=== PATIENT | female | born 1995 | race Caucasian/White ===

== ENCOUNTER → 2020-12-26 15:33 | Outpatient (CLI) | payer BC, SELFPAY ==
[2020-12-19 15:15] VITALS: BMI 26.9
--- NOTE | 2020-12-26 15:39 | US_ITS ---
STUDY: ULTRASOUND OF THE FEMALE PELVIS - COMPLETE REASON FOR EXAM: Female, 25 years old. pain-pelvic hx of endometriosis LMP: TECHNIQUE: Transabdominal and transvaginal TECHNICAL QUALITY: Adequate. COMPARISON: None. FINDINGS: The uterus is anteverted and is in a midline position. The uterus measures 8 x 4.8 x 2.5 cm. Normal uterine cervix. The endometrium measures 4 mm in thickness, and is hyperechoic. There is no demonstrated endometrial mass. There is no demonstrated myometrial mass. I.U.D. - The patient does not have an I.U.D. The right ovary is visualized. The right ovary measures 3.3 x 2.4 x 1.6 cm. There is no right ovarian cyst or ovarian mass. There is no visualized right adnexal mass or complex lesion. There is normal arterial and normal venous vascularity. The left ovary is visualized. The left ovary measures 3.6 x 2.2 x 2 cm. There is no left ovarian cyst or ovarian mass. There is no visualized left adnexal mass or complex lesion. There is normal arterial and normal venous vascularity. There is no fluid in the cul-de-sac. The pre void volume of the bladder was 406 ml. US/Pelvic (Non ) IMPRESSION: Normal female pelvis. Electronically Signed: Brdoerick Lowry MD at 16:54 EDT , Service support ,
--- NOTE | 2020-12-26 15:39 | US_ITS ---
STUDY: ULTRASOUND OF THE FEMALE PELVIS - COMPLETE REASON FOR EXAM: Female, 25 years old. pain-pelvic hx of endometriosis LMP: TECHNIQUE: Transabdominal and transvaginal TECHNICAL QUALITY: Adequate. COMPARISON: None. FINDINGS: The uterus is anteverted and is in a midline position. The uterus measures 8 x 4.8 x 2.5 cm. Normal uterine cervix. The endometrium measures 4 mm in thickness, and is hyperechoic. There is no demonstrated endometrial mass. There is no demonstrated myometrial mass. I.U.D. - The patient does not have an I.U.D. The right ovary is visualized. The right ovary measures 3.3 x 2.4 x 1.6 cm. There is no right ovarian cyst or ovarian mass. There is no visualized right adnexal mass or complex lesion. There is normal arterial and normal venous vascularity. The left ovary is visualized. The left ovary measures 3.6 x 2.2 x 2 cm. There is no left ovarian cyst or ovarian mass. There is no visualized left adnexal mass or complex lesion. There is normal arterial and normal venous vascularity. There is no fluid in the cul-de-sac. The pre void volume of the bladder was 406 ml. US/Transvaginal Non- IMPRESSION: Normal female pelvis. Electronically Signed: Broderick Lowry MD at 16:54 EDT , Service support ,
[2020-12-26 18:01] LABS: Prolactin 10.5 ng/mL
[2020-12-31 12:39] LABS: Testosterone Free 0.5 pg/mL (0.0-4.2)
== END ==
PROVIDERS: Referring Provider Nurse Practitioner Women's Health; Visit Provider Nurse Practitioner Women's Health
DX: N80.9 Endometriosis, unspecified (principal); N92.6 Irregular menstruation, unspecified; N94.6 Dysmenorrhea, unspecified; N97.0 Female infertility associated with anovulation
CPT/HCPCS: 36415; 76830; 76856; 82627; 84146; 84402; 82626

== ENCOUNTER → 2021-01-12 09:37 | Outpatient (CLI) | payer BC, SELFPAY ==
[2020-12-19 15:15] VITALS: BMI 26.9
[2021-01-14 11:03] LABS: Progesterone Level 6.37 ng/mL (See Comment)
== END ==
PROVIDERS: Referring Provider Nurse Practitioner Women's Health; Visit Provider Nurse Practitioner Women's Health
DX: N80.9 Endometriosis, unspecified (principal)
CPT/HCPCS: 36415; 84144

== ENCOUNTER → 2022-03-26 | Outpatient (CLI) | payer BC, SELFPAY ==
--- NOTE | 2022-03-26 11:55 | RAD_ITS ---
INDICATION: infertility EXAMINATION/TECHNIQUE: Fluoroscopic hysterosalpingogram. Total Fluoroscopic Time: 14 seconds AND number of Fluoroscopic Images: 2 COMPARISON: None. FINDINGS: Approximately 50 cc of [id number] was administered by the content specialist. Normal contrast opacification of the endometrial cavity with immediate opacification of the bilateral fallopian tubes. There is normal peritoneal extravasation. The opacified structures appear unremarkable. RAD/Salpingogram IMPRESSION: Normal hysterosalpingogram. Electronically Signed: Christopher Medina, at 15:01 EDT ,
--- NOTE | 2022-03-26 12:51 | OP.PCM_ITS ---
Problems Associated Problem List Diagnoses (1) Endometriosis determined by laparoscopy: (2) Hypothyroidism: (3) Infertility: Operative Report Date of Procedure: 03/26/22 Preop diagnosis: Infertility Postop diagnosis:Infertility , bilateral tubal patency Procedure: Hysterosalpingogram Surgeon:Rae Manjarrez DO Implantable devices: None Complications: None Findings: Bilateral tubal patency and normal uterine cavity Operative details: Patient was taken to the x-ray room and was placed on the x- ray table and was in the dorsal lithotomy position. Speculum was placed in the vagina and the cervix prepped with Betadine and the HSG catheter was easily introduced into the uterus and speculum removed. Radiologist was brought in and while pushing radiopaque dye into the uterus via the HSG catheter the radiologist took multiple images and views and confirmed bilateral tubal patency seen. No gross uterine filling defects or abnormalities were seen. All instruments removed from the vagina and the uterus without complication. Patient tolerated the procedure well. Multi Select Codes Urinary/Genital Urinary/Genital CPT Codes: 18143 HSG/SIS
== END | disposition home or self-care (01) ==
LOC: RAD 11:45
PROVIDERS: Referring Provider Obstetrics & Gynecology; Visit Provider Obstetrics & Gynecology
DX: N97.0 Female infertility associated with anovulation (principal); E03.9 Hypothyroidism, unspecified
CPT/HCPCS: 58340; 74740; Q9967

== ENCOUNTER → 2023-09-08 | Outpatient (CLI) | payer OTHER, SELFPAY ==
[2023-09-12 16:05] LABS: HPV Reflexed? NOT INDICATED
== END | disposition home or self-care (01) ==
LOC: LABSPEC 16:49
PROVIDERS: Referring Provider Nurse Practitioner Women's Health; Visit Provider Nurse Practitioner Women's Health
DX: Z12.4 Encounter for screening for malignant neoplasm of cervix (principal)
CPT/HCPCS: 88175; G0145

== ENCOUNTER 2023-09-28 09:15 | Emergency (ER) | payer OTHER, SELFPAY ==
[2023-09-28 09:17] VITALS: BP 119/90; PULSE 83; RESP 16; TEMP 36.2; O2SAT 100; BMI 26.2
--- NOTE | 2023-09-28 09:37 | EDS_ITS ---
HPI History of Present Illness Chief Complaint: Laceration Detail of Chief Complaint: Laceration radial side left index finger Informant: patient Occured/Mechanism Comment: Laceration while cutting potatoes for [place] dinner Onset/Context/Timing Context: Sudden Onset Timing: Continuous Quality of Pain: Throbbing Location: Radial side left index finger from PIP joint to DIP joint. Current Severity: Mild Maximum Severity: Moderate Worsened by: Nothing Relieved by: Nothing Associated Symptoms Associated Symptoms: Negative for Parasthesia, Weakness or Loss of Funtion Narrative Narrative: Patient is a 28-year-old [id number] female presents laceration left index finger. Last tetanus unknown. She denies paresthesia, anesthesia or motor weakness. She denies prior injury to the finger. She has no other complaints. Tetanus Immunization: Unknown [facility] Medical History Anemia Asthma Endometriosis Home Medications cholecalciferol (vitamin D3) 50 mcg (2,000 unit) capsule 50 mcg PO DAILY 12/19/20 [History Last Taken Unknown] dextroamphetamine-amphetamine 30 mg tablet (Adderall) 30 mg PO DAILY 12/19/20 [History Last Taken Unknown] iron 18 mg tablet 18 mg PO DAILY 12/19/20 [History Last Taken Unknown] levothyroxine 25 mcg tablet (Synthroid) 25 mcg PO DAILY 12/19/20 [History Last Taken Unknown] doxycycline hyclate 100 mg capsule 100 mg PO DAILY #1 cap 03/26/22 [Rx Last Taken Unknown] Allergy/AdvReac Type Severity Reaction Status Date / Time amoxicillin Allergy Intermediate Hives Verified 09/28/23 09:16 cefaclor [From Ceclor] Allergy Intermediate Hives Verified 09/28/23 09:16 sulfamethoxazole Allergy Intermediate Hives Verified 09/28/23 09:16 [From Bactrim] trimethoprim [From Bactrim] Allergy Intermediate Hives Verified 09/28/23 09:16 Family History Mother Hypertension Allergies Surgical History History of tonsillectomy removal of endometriosis Social History household members: spouse current occupational status: employed current occupation: [employer] history of recent travel: No sexually active: Yes Smoking Status: Never smoker alcohol intake: current alcohol intake frequency: a few times a week substance use type: does not use diet: other what type of physical activity do you participate in: aerobics frequency: 1-2 times per week do you feel safe at home: Yes additional social history: - Erwin PEREZ ROS ED Constitutional Constitutional ED: Denies chills or fever(s) Neurologic Neurologic: Denies paresthesias Psychiatric Psychiatric: Reports anxiety Hematologic/Lymphatic Hematologic/Lymphatic: Denies easy bleeding or easy bruising EXAM Physical Exam Const Vital Signs: 09/28/23 09:17 Temperature 97.1 F L Temperature Source Temporal Pulse Rate 83 Respiratory Rate 16 Blood Pressure 119/90 H Blood Pressure Mean 99 Pulse Ox 100 Oxygen Delivery Method Room Air Positive well nourished and well developed General Appearance ED: well developed and NAD HEENT Reports moist mucous membranes normocephalic and atraumatic Eyes PERRL and EOMs intact bilaterally Resp normal respiratory effort Cardio regular rate and regular rhythm Extremity Extremity Narrative: There is a skin avulsion that is 3 cm x 0.3 cm in length radial side left index finger. The extensor inside tendon is functionally intact. The flexor digitorum superficialis and flexor digitorum profundus are intact. Capillary fill is normal. 2 point semination is normal. Neuro oriented x3, CN's II-XII intact bilaterally, no focal motor deficits and no sensory deficits noted Sensorium / Orientation: alert Psych Mood & Affect: anxious and tearful Skin Skin Narrative: Skin avulsion left index finger per previously description under the extremity portion of the medical record. MDM MDM MDM Narrative Medical decision making narrative: These given flap was ruled out to cover the defect. Wound was cleansed. Steri- Strips were applied per staff. Tetanus was updated. There is no indication for imaging. Discharge Plan Triage Chief Complaint: Laceration ED Provider: Jaren England Dx/Rx/DC Orders Clinical Impression: Avulsion of skin of finger Instructions: ED Skin Tear (Skin Avulsion) Prescriptions: No Action levothyroxine [Synthroid] 25 mcg tablet 25 mcg PO DAILY dextroamphetamine-amphetamine [Adderall] 30 mg tablet 30 mg PO DAILY iron 18 mg tablet 18 mg tablet 18 mg PO DAILY cholecalciferol (vitamin D3) 50 mcg (2,000 unit) capsule 50 mcg PO DAILY doxycycline hyclate 100 mg capsule 100 mg PO DAILY Qty: 1 0RF Primary Care Provider: NOT,DEFINED Referrals: NOT,DEFINED [Primary Care Provider] - Doctor,Your [Non-Staff] - As Needed Activity Restrictions/Additional Instructions: 1. Keep dressing on for the next 24 to 48 hours 2. Keep finger clean and dry for the next 48 hours Disposition Disposition: Home, Self Care
[2023-09-28] MEDS: Diphth,Pertuss(Acell),Tet Vac 0.5 ML Vial IM (10:12)
== END 2023-09-28 10:35 | disposition home or self-care (01) ==
PROVIDERS: Emergency Provider Emergency Medicine; Visit Provider Emergency Medicine
DX: S61.211A Laceration without foreign body of left index finger without damage to nail, initial encounter (principal); J45.909 Unspecified asthma, uncomplicated; F41.9 Anxiety disorder, unspecified; W26.8XXA Contact with other sharp object(s), not elsewhere classified, initial encounter; Y93.G3 Activity, cooking and baking; Z23 Encounter for immunization
CPT/HCPCS: 90471; 90715; 99282

== ENCOUNTER → 2023-10-10 | Outpatient (CLI) | payer OTHER, SELFPAY ==
--- OUTSIDE RECORDS SUMMARY | 2023-10-10 10:02 | XMS RPT_ITS | CCD ---
Author Name Unknown Address [address] [place] [address] [place], [place] [id number] Organization [facility] Care Team Providers Care Craps Manager Name Role Phone YAW GARZA (REZA) Unavailable YAW Avalos (SYSTEM DISPATCHER) Unavailable UnavailYAW Solares (REZA) Unavailable UnavailYAW Solares (REZA) Unavailable UnavailYAW Solares (REZA) Unavailable Unavailabl rayna PROVIDER, UNKNOWN Attending Unavailable PROVIDER, UNKNOWN Referring Unavailable Yaw Garza Primary Care Unavailable Yaw Garza CNP Primary Care Provider Allergies Allergy Classification Reported Allergen(s) Allergy Type Date of Onset Reaction(s) Facility Cephalosporins (antibiotic) (1 source) Cefaclor Drug Allergy 8 Unknown [facility] Penicillins (antibiotic) (1 source) Amoxicillin Drug Allergy 8 Unknown [facility] Sulfamethoxazole / Trimethoprim (1 source) Sulfamethoxazole / Trimethoprim Drug Allergy 8 Unknown [facility] (1 source) amoxicillin; Translations: [AMOXICILLIN] Drug Allergy [facility] Rep[facility] (1 source) cefaclor; Translations: [CEFACLOR] Drug Allergy [facility] (1 source) sulfamethoxazole / trimethoprim; Translations: [SULFAMETHOXAZOLE-TR IMETHOPRIM] Drug Allergy [facility] Medications Completed/Discontinued Medications Medication Drug Class(es) Dates Sig (Normalized) Sig (Original) [id number] 200 actuat albuterol 0.09 mg/actuat metered dose inhaler (1 source) beta2-Adrenergic Agonist Start: 01-10-2019 take 2 puff(s) by inhalation every six hours as needed albuterol HFA (PROAIR HFA) 90 mcg/actuation inhaler Indications: Mild intermittent asthma, unspecified whether complicated Inhale 2 Puffs as instructed every 6 hours as needed. 1 Inhaler 0 01/10/2019 Active Problems Problem Classification Problem Date Documented Date Episodic/Chronic Allergic reactions (6 sources) Allergy status to penicillin; Translations: [Allergy status to other anti-infective agents status] Onset: 11-14-2018 Episodic Anxiety disorders (1 source) Generalized anxiety disorder; Translations: [Generalized anxiety disorder] Onset: 07-02-2018 07-02-2018 Chronic Asthma (3 sources) Unspecified asthma, uncomplicated; Translations: [Asthma] Onset: 11-14-2018 01-10-2019 Chronic Attention-deficit conduct and disruptive behavior disorders (2 sources) Attention-deficit hyperactivity disorder, unspecified type; Translations: [Attention-deficit hyperactivity disorder, unspecified type] Onset: 11-14-2018 Chronic Genitourinary symptoms and ill-defined conditions (3 sources) Dysuria; Translations: [Dysuria] Onset: 07-02-2018 Episodic Other female genital disorders (2 sources) Personal history of other diseases of the female genital tract; Translations: [Personal history of oth diseases of the female genital tract] Onset: 11-14-2018 Episodic Unclassified (1 source) Unknown / UNK(Unknown) Onset: 07-02-2018 Urinary tract infections (2 sources) Urinary tract infection, site not specified; Translations: [Urinary tract infection, site not specified] Onset: 11-14-2018 Episodic Results Test Name Value Interpretation Reference Range Facil ity Encounters Encounter Date Encounter Type Care Provider Facility Start: 04-11-2021 End: 04-11-2021 ambulatory Chai Mercado Primary Care Procedures Date Procedure Procedure Detail Performing Clinician Start: 07-02-2018 Adult depression scr eening assessment Chai Martin Plan of Treatment Date Care Activity Detail Author Start: 2021 Influenza vaccination INFLUENZA (#1) [facility] Start: 07-02-2019 Adult depression scr eening assessment DEPRESSION SCREENING [facility] Start: 07-02-2019 ANNUAL PCP TEAM MECHANICAL APPLICATIONS ENGINEER HEATHER DISEASE VISIT ANNUAL PCP TEAM CHRONIC DISEASE VISIT [facility] Start: 2015 PAP TESTING PAP TESTING [facility] Start: 2013 Urine microalbumin profile DTAP,TDAP ,TD (1 - Tdap) [facility] Start: 2012 HEPATITIS C SCREENING HEPATITIS C SC REETOM [facility] Start: 2012 HIV SCREENING HIV SCREENING [facility] Start: 2012 SPIROMETRY SPIROMETRY [facility] Start: 2006 COVID-19 VACCINE (1) COVID-19 VACCIN E (1) [facility] Start: 2005 HPV VACCINE (1 - 2-d ose series) HPV VACCINE (1 - 2-dose series) [facility] Payers Date Payer Category Payer Unknown [id number] Unknown [id number] Unknown Social History Date Type Detail Facility Start: 07-02-2018 Tobacco smoking stat us NHIS Never smoker [facility] Start: 07-02-2018 Tobacco use and exposure Never used [facility] Start: 07-02-2018 Alcohol intake Current drinke r of alcohol (finding) [facility] Start: 07-02-2018 Alcohol Comment weekly [facility] Start: 1995 Sex Assigned At Not on file [facility] Progress note 05-14-2021 Note Date & Type Note Facility 05-14-2021 Note HNO ID: [id number] Author: Chai Martin Service: ? Author Type: ? Type: Progress Notes Filed: 05/14/2021 9:25 AM Note Text: POPULATION HEALTH NAVIGATION OUTREACH OFF-BOARDING Provider Action/FYI Pt identified by name and . Attempt 3. Patient has not responded to Offboarding outreach attempts. PCP updated to No PCP due to no [facility] PCP activity and provider left system over a year ago. Outreach Outcome: Unable to reach patient: Left message Off-Boarding Actions: Appointment scheduled: Reminders sent: Leatha Martin Population Health Navigator [facility] Progress note 04-11-2021 Note Date & Type Note Facility 04-11-2021 Note HNO ID: [id number] Author: Chai Martin Service: ? Author Type: ? Type: Progress Notes Filed: 04/11/2021 3:06 PM Note Text: POPULATION HEALTH NAVIGATION OUTREACH OFF-BOARDING Provider Action/FYI Pt identified by name and . Patient last seen by PCP 07-02-18. I called and lm for patient to call back about updating PCP. Mychart message also sent. Outreach Outcome: Unable to reach patient: Left message MyChart message sent Off-Boarding Actions: Appointment scheduled: Reminders sent: Leatha Martin Population Health Navigator [facility] History of Present illness Narrative 04-11-2021 Chai Martin - 04/11/2021 3:00 PM EDT Note Date & Type Note Facility 04-11-2021 History of Presen t illness Narrative POPULATION HEALTH NAVIGATION OUTREACH OFF-BOARDING Provider Action/FYI Pt identified by name and . Patient last seen by PCP 07-02-18. I called and lm for patient to call back about updating PCP. Mychart message also sent. Outreach Outcome: Unable to reach patient: Left message MyChart message sent Off-Boarding Actions: Appointment scheduled: Reminders sent: Leatha Martin Population Health Navigator documented in this encounter [facility] Clinical Note 04-11-2021 Note Date & Type Note Facility 04-11-2021 Note Patient Outreach ([facility]) -- SHERLY CASTRO ([id number]) 1995 F Date Time Provider Department 04/11/21 CHAI MARTIN AGGRISHABH During your visit today, we recorded the following information about you: Chai Martin 04/11/2021 3:06 PM Signed POPULATION HEALTH NAVIGATION OUTREACH OFF-BOARDING Provider Action/FYI Pt identified by name and . Patient last seen by PCP 07-02-18. I called and lm for patient to call back about updating PCP. Mychart message also sent. Outreach Outcome: Unable to reach patient: Left message MyChart message sent Off-Boarding Actions: Appointment scheduled: Reminders sent: Leatha Martin Population Health Navigator Chai Solis 05/14/2021 9:25 AM Signed POPULATION HEALTH NAVIGATION OUTREACH OFF-BOARDING Provider Action/FYI Pt identified by name and . Attempt 3. Patient has not responded to Offboarding outreach attempts. PCP updated to No PCP due to no [facility] PCP activity and provider left system over a year ago. Outreach Outcome: Unable to reach patient: Left message Off-Boarding Actions: Appointment scheduled: Reminders sent: Leatha Martin Population Health Navigator Allergies As of Date: 04/11/2021 Noted Allergy Reaction AMOXICILLIN 07/02/2018 16 - Unknown BACTRIM (SULFAMETHOXAZOLE-TRIMETH*07/02/2018 16 - Unknown CECLOR (CEFACLOR) 07/02/2018 16 - Unknown Date Reviewed: 07/02/2018 Reviewed by: Gina Campos - Fully Assessed Reason for Visit: Population Health Navigation Outreach [3910] Cmt: OFFBOARDING- Needs PCP Updated Prescriptions as of 05/14/2021 - albuterol HFA (PROAIR HFA) 90 mcg/actuation inhaler Inhale 2 Puffs as instructed every 6 hours as needed. - phenazopyridine HCl (AZO STANDARD MAXIMUM STRENGTH ORAL) Take by mouth. - FLUoxetine HCl 20 mg tablet Take 1 tablet by mouth once daily. - doxycycline monohydrate 100 mg tablet Take 1 tablet by mouth twice daily. - fluconazole (DIFLUCAN) 150 mg tablet Take 1 tablet by mouth once daily. Problem List As Of Date 04/11/2021 Noted Resolved YOCASTA (generalized anxiety disorder) [F41.1] 07/02/2018 Asthma [J45.909] Encounter Status:Closed by CHAI MARTIN on 04/11/21 [facility] Summary Purpose Family History No Family History Records FoundNo Family History Records FoundNo Family History Records FoundNo Family History Records FoundNo Family History Records Found Advance Directives No Advanced Directives Records FoundNo Advanced Directives Records FoundNo Advanced Directives Records FoundNo Advanced Directives Records FoundNo Advanced Directives Records Found Additional Source Comments INFORMATION SOURCE (unrecogn ized section and content) DATE CREATED AUTHOR AUTHOR'S ORGANIZ ATION 11/24/2018 [facility] DATE CREATED AUTHOR AUTHOR'S ORGANIZ ATION 04/26/2020 [facility] ([place]) DATE CREATED AUTHOR AUTHOR'S ORGANIZ ATION 05/15/2021 [facility] Source Comments (unrecognize d section and content) In the event this informatio n is protected by the Federal Confidentiality of Alcohol and Drug Abuse Patient Records regulations: The Federal rules restrict any use of the information to criminally investigate or prosecute any alcohol or drug abuse patient.[facility] Reason for Visit (unrecogniz ed section and content) FOR RECORDS PERTAINING TO PATIENTS WHO ARE OR HAVE BEEN ENROLLED IN A CHEMICAL DEPENDENCY/SUBSTANCEABUSE PROGRAM, SOME INFORMATION MAY BE OMITTED. This clinical summary was aggregated from multiple sources. Caution should be exercised in using it in the provision of clinical care. This summary normalizes information from multiple sources, and as a consequence, information in this document may materially change the coding, format and clinical context of patient data. In addition, data may be omitted in some cases. CLINICAL DECISIONS SHOULD BE BASED ON THE PRIMARY CLINICAL RECORDS. [facility]. provides no warranty or guarantee of the accuracy or completeness of information in this document.
[2023-10-12 09:37] LABS: Progesterone Level 11.09 ng/mL (See Comment)
== END | disposition home or self-care (01) ==
LOC: LAB 10:01
PROVIDERS: Referring Provider Nurse Practitioner Women's Health; Visit Provider Nurse Practitioner Women's Health
DX: N97.9 Female infertility, unspecified (principal)
CPT/HCPCS: 36415; 84144

== ENCOUNTER → 2024-01-02 | Outpatient (CLI) | payer OTHER, SELFPAY ==
[2024-01-04 09:44] LABS: Progesterone Level 51.57 ng/mL (See Comment)
== END | disposition home or self-care (01) ==
LOC: LAB 10:46
PROVIDERS: Referring Provider Nurse Practitioner Women's Health; Visit Provider Nurse Practitioner Women's Health
DX: N97.0 Female infertility associated with anovulation (principal)
CPT/HCPCS: 36415; 84144

== ENCOUNTER → 2024-01-28 | Outpatient (CLI) | payer OTHER, SELFPAY ==
[2024-01-28 16:58] LABS: Progesterone Level 22.37 ng/mL (See Comment)
== END | disposition home or self-care (01) ==
LOC: LAB 14:53
PROVIDERS: Referring Provider Registered Nurse; Visit Provider Registered Nurse
DX: N97.0 Female infertility associated with anovulation (principal); E03.9 Hypothyroidism, unspecified
CPT/HCPCS: 36415; 84144

== ENCOUNTER → 2025-03-31 | Outpatient (CLI) | payer OTHER, SELFPAY ==
--- OUTSIDE RECORDS SUMMARY | 2025-03-31 19:10 | XMS RPT_ITS | CCD ---
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 sensory deficits noted Sensorium / Orientation: alert Psych Mood & Affect: anxious and tearful Skin Skin Narrative: Skin avulsion left index finger per previously description under the extremity portion of the medical record. MDM MDM MDM Narrative Medical decision making narrative: These given flap was ruled out to cover the defect. Wound was cleansed. Steri- Strips were applied per staff. Tetanus was updated. There is no indication forimaging. Discharge Plan Triage Chief Complaint: Laceration ED Provider: Jaren England Dx/Rx/DC Orders Clinical Impression: Avulsion of skin of finger Instructions: ED Skin Tear (Skin Avulsion) Prescriptions: No Action levothyroxine [Synthroid] 25 mcg tablet 25 mcg PO DAILY dextroamphetamine-amphetamine [Adderall] 30 mg tablet 30 mg PO DAILY iron 18 mg tablet 18 mg tablet 18 mg PO DAILY cholecalciferol (vitamin D3) 50 mcg (2,000 unit) capsule 50 mcg PO DAILY doxycycline hyclate 100 mg capsule 100 mg PO DAILY Qty: 1 0RF Primary Care Provider: NOT,DEFINED Referrals: NOT,DEFINED [Primary Care Provider] - Doctor,Your [Non-Staff] - As Needed Activity Restrictions/Additional Instructions: 1. Keep dressing on for the next 24 to 48 hours 2. Keep finger clean and dry for the next 48 hours Disposition Disposition: Home, Self Care What to do if you have Problems For any increased pain, shortness of breath, bleeding, nausea or vomiting, chestpain, or any unexpected problems, contact your Primary Care Provider. Call [facility] ([phone]) or report to the closest Emergency Room. Call 911 if necessary. 09/28/23 0942 <Electronically signed by Jaren England MD> Cosigner Signature (if applicable): CC: DEFINED NOT ~ Signed [facility] Work Phone: Evaluation note* Diagnosis Onset Date Resolution Status Endometriosis determined by laparoscopy acute Hypothyroidism acute Infertility acute [facility] Work Phone: Evaluation note* Diagnosis Onset Date Resolution Status Endometriosis determined by laparoscopy acute Infertility [facility] Work Phone: Evaluation noteNo assessment information available [facility] Work Phone: Hospital course Narrative No data available for this section [facility] Hospital Discharge instructions Additional Instructions 1. Keep dressing on for the next 24 to 48 hours 2. Keep finger clean and dry for [facility] next [facility] Work Phone: Hospital Discharge instructions No data available for this section [facility] Progress note No data available for this section [facility] Summary Purpose Family History No Family History Records Found Relationship Condition Age at Onset Recorded Date/T shanelle mother Hypertension Unknown Allergy Unknown Advance Directives No Advanced Directives Records Found Advance Directive Response Recorded Date/ Time Living Will No September 28 023 9:18am Power of Party Chief No September 28, 2023 9:18am Advance Directive Response Recorded Date/ Time Living Will No September 28 023 10:18am Power of Party Chief No September 28, 2023 10:18am Chief Complaint and Reason for Visit Chief Complaint INFERTILITY INFERTILITY Reason for Visit Endometriosis determ ined by laparoscopy Hypothyroidism Infertility Chief Complaint conception/fertility questions PAP Reason for Visit Endometriosis determ ined by laparoscopy Infertility Chief Complaint conception/fertility questions PAP lac Reason for Visit Endometriosis determ ined by laparoscopy Infertility Chief Complaint lac EORDER Chief Complaint EORDER Additional Source Comments INFORMATION SOURCE (unrecogn ized section and content) DATE CREATED AUTHOR 08/03/2018 [employer] [facility] DATE CREATED AUTHOR AUTHOR'S ORGANIZ ATION 11/24/2018 [employer] DATE CREATED AUTHOR AUTHOR'S ORGANIZ ATION 05/15/2021 [facility] DATE CREATED AUTHOR AUTHOR'S ORGANIZ ATION 02/04/2024 [facility] DATE CREATED AUTHOR AUTHOR'S ORGANIZ ATION 05/27/2024 [facility] DATE CREATED AUTHOR AUTHOR'S ORGANIZ ATION 10/18/2024 [facility] Source Comments (unrecognize d section and content) In the event this informatio n is protected by the Federal Confidentiality of Alcohol and Drug Abuse Patient Records regulations: The Federal rules restrict any use of the information to criminally investigate or prosecute any alcohol or drug abuse patient.[facility] Reason for Visit (unrecogniz ed section and content) Reason Onset Date Comments Population Health Navigation Outreach 04/11/2021 OFFBOARDING- Needs PCP Updated Goals (unrecognized section and content) Goals may be documented in a n alternate sectionGoals may be documented in an alternate sectionGoals may be documented in an alternate sectionGoals may be documented in an alternate sectionGoals may be documented in an alternate section No data available for this section No data available for this section No data available for this section Care Teams (unrecognized sec tion and content) Team Status: Active Member Role Status Dates EMILY HEREDIA Primary Care Provider Active Team Status: Inactive Member Role Status Dates Sherice Thomas HISTORICAL INTERPRETER, HISTORICAL INTERPRETER-C Attending Provider Active Team Status: Inactive Member Role Status Dates YAN DIAZ Primary Care Provider Active Sherice Thomas HISTORICAL INTERPRETER, HISTORICAL INTERPRETER-C Attending Provider, Referring Provider Active Team Status: Active Member Role Status Dates No Primary Care Physician Primary Care Provider Active Team Status: Inactive Member Role Status Dates Dr. Jaren England MD Emergency Provider Active No Primary Care Physician Primary Care Provider Active Team Status: Inactive Member Role Status Dates Dr. Jaren England MD Attending Provider, Emergency Provi ankit Active No Primary Care Physician Primary Care Provider Active Team Status: Inactive Member Role Status Dates No Primary Care Physician Primary Care Provider Active Sherice Thomas NP, PARTHC Attending Provider, Referring Provider Active Team Status: Inactive Member Role Status YAN Romero Primary Care Provider Active Nabila Vera CNM Attending Provider, Referring Pr apolinar Active FOR RECORDS PERTAINING TO PATIENTS WHO ARE [...] BE BASED ON THE PRIMARY CLINICAL RECORDS. [facility] [employer] provides no warranty or guarantee of the accuracy or completeness of information in this document.
== END | disposition home or self-care (01) ==
LOC: LAB 12:27
PROVIDERS: Referring Provider Obstetrics & Gynecology Reproductive Endocrinology; Visit Provider Obstetrics & Gynecology Reproductive Endocrinology
DX: O20.0 Threatened abortion (principal); Z3A.00 Weeks of gestation of pregnancy not specified
CPT/HCPCS: 36415; 86900; 86901

== ENCOUNTER → 2025-05-08 | Outpatient (CLI) | payer OTHER, SELFPAY ==
--- OUTSIDE RECORDS SUMMARY | 2025-05-08 22:51 | XMS RPT_ITS | CCD ---
Author Organization [facility] Care Team Providers Care Fiberglass Autobody Repairer Name Role Phone YAW GARZA (PUPPET ENGINEER) Unavailable Unavailabl YAW Wheeler (PUPPET ENGINEER) Unavailable Unavailabl YAW Wheeler (PUPPET ENGINEER) Unavailable Unavailabl e YAW GARZA (PUPPET ENGINEER) Unavailable Unavailabl e YAW GARZA (PUPPET ENGINEER) Unavailable Unavailabl e PROVIDER, UNKNOWN Attending Unavailable PROVIDER, UNKNOWN Referring Unavailable Yaw Garza Primary Care Unavailable Yaw Garza CNP Primary Care Provider EMILY HEREDIA Primary Care Provider UnavailDr. Susanna Tran Referring Provider Dr. Susanna Salazar Other Provider Dr. Rae Manjarrez Attending Provider [phone] William STEWARDESSES TEACHER, PARTHC Sherice Attending Provider YAN FARRAR, DR DIAZ Primary Care Physician JOSIAH FREEMAN MD Attending Unavailable YAN FARRAR, DR DIAZ Primary Care Unavailable ALLA MAR Attending Unav DR EMILY Reddy DO Primary Care Unavailable YAN FARRAR, DR DIAZ Primary Care Unavailable ALLA MAR Attending Unav EMILY Reddy Primary Care Provider [phone] Dr. Raj Keating DO Attending Provider Dr. Raj Keating DO Referring Provider Dr. Rae Manjarrez DO Attending Provider William STEWARDESSES TEACHER-CSherice Attending Provider Rae Manjarrez Attending UnavailSherice Shields NP Attending Unavailable Rae Manjarrez Attending [facility] Primary Care Unavailable Raj Keating Attending Unavailable Raj Keating Referring Unavailable Allergies Allergy Classification Reported Allergen(s) Allergy Type Date of Onset Reaction(s) Facility Cephalosporins (antibiotic) (1 source) Cefaclor Drug Allergy 8 Unknown [facility] Penicillins (antibiotic) (1 source) Amoxicillin Drug Allergy 8 Unknown [facility] Sulfamethoxazole / Trimethoprim (1 source) Sulfamethoxazole / Trimethoprim Drug Allergy 8 Unknown [facility] (14 sources) amoxicillin; Translations: [AMOXICILLIN] Drug Allergy 1 [facility] Repository (14 sources) cefaclor; Translations: [CEFACLOR] Drug Allergy 1 [facility] Repository (1 source) sulfamethoxazole / trimethoprim; Translations: [SULFAMETHOXAZOLE-TR IMETHOPRIM] Drug Allergy [facility] Repository (9 sources) Sulfamethoxazole Drug Allergy 1 [facility] (9 sources) Trimethoprim Drug Allergy 1 [facility] (3 sources) Sulfamethoxazole / Trimethoprim; Translations: [sulfamethoxazole-tr imethoprim] Drug Allergy [facility] (1 source) Sulfamethoxazole Drug Allergy 5 [facility] Repository (1 source) Trimethoprim Drug Allergy 5 [facility] Repository Medications Current Medications Medication Drug Class(es) Dates Sig (Normalized) Sig (Original) cholecalciferol 0.05 mg oral capsule (9 sources) Vitamin D Start: 12-19-2020 take 1 capsule by mouth once daily Cholecalciferol (Vitamin D3) 50 mcg (2,000 unit) capsule Active 50 ug PO DAILY December 19, 2020 12:00am docosahexaenoic acid 200 mg oral capsule (2 sources) Start: 05-02-2025 Docosahexaenoic Acid ( Dha) 200 mg capsule Active mg PO May 02, 2025 12:00am Iron (9 sources) Start: 12-19-2020 take 1 tablet by mouth once daily Iron 18 mg tablet Active 18 mg PO DAILY December 19, 2020 12:00am Start: 12-19-2020 take 1 tablet by mouth once da alvaro iron 18 mg tablet Active 18 MG PO DAILY December 18, 2020 11:00pm Start: 12-19-2020 take 1 tablet by mouth once da alvaro iron 18 mg tablet Active 18 MG PO DAILY December 19, 2020 12:00am levothyroxine sodium 0.025 mg oral tablet (11 sources) l-Thyroxine Start: 05-02-2025 take 3 tablets by mouth once daily Levothyroxine (Synthroid) 25 mcg tablet Active 75 ug PO DAILY May 02, 2025 9:13am Start: 12-19-2020 End: 05-02-2025 take 1 tablet by mouth once daily Levothyroxine (Synthroid) 25 mcg tablet Discontinued 25 ug PO DAILY December 19, 2020 12:00am May 02, 2025 9:14am Completed/Discontinued Medications Medication Drug Class(es) Dates Sig (Normalized) Sig (Original) [id number] 200 actuat albuterol 0.09 mg/actuat metered dose [...] in structed every 6 hours as needed. amphetamine aspartate 7.5 mg / amphetamine sulfate 7.5 mg / dextroamphetamine saccharate 7.5 mg / dextroamphetamine sulfate 7.5 mg oral tablet (9 sources) Central Nervous System Stimulant Start: 12-19-2020 End: 05-02-2025 take 1 tablet by mouth once daily Dextroamphetamine -Amphetamine (Adderall) 30 mg tablet Discontinued 30 mg PO DAILY 0 December 19, 2020 12:00am May 02, 2025 9:14am clomiPHENE citrate 50 mg oral tablet (20 sources) Estrogen Agonist/Antagoni st Start: 12-14-2023 End: 12-19-2023 take 2 tablets by mouth once daily Clomiphene Citrate 50 mg tablet Discontinued 100 mg PO daily 10 5 0 December 14, 2023 8:21am December 18, 2023 12:00am December 19, 2023 12:16am cycle days 3-7 Start: 12-14-2023 End: 12-19-2023 take 100 mg by mouth once daily Clomiphene Citrate Dis continued 100 MG PO daily 10 5 December 14, 2023 8:21am December 19, 2023 12:16am cycle days 3-7 Start: 11-17-2023 End: 11-22-2023 take 1 tablet by mouth once daily Clomiphene Citrate 50 mg tablet Discontinued 50 mg PO daily 5 5 0 November 17, 2023 9:59am November 21, 2023 1:00am November 22, 2023 1:02am cycle days 3-7 Start: 10-20-2023 End: 10-25-2023 take 1 tablet by mouth once daily Clomiphene Citrate 50 mg tablet Discontinued 50 mg PO daily 5 5 0 October 20, 2023 12:08pm October 24, 2023 1:00am October 25, 2023 1:04am cycle days 3-7 Start: 09-08-2023 End: 09-13-2023 take 1 tablet by mouth once daily Clomiphene Citrate 50 mg tablet Discontinued 50 mg PO daily 5 5 0 September 08, 2023 1:00am September 12, 2023 1:00am September 13, 2023 1:04am cycle days 3-7 doxycycline hyclate 100 mg oral capsule (10 sources) Tetracycline-class Drug Start: 03-26-2022 End: 05-02-2025 take 1 capsule by mouth once daily Doxycycline Hyclate 100 mg capsule Discontinued 100 mg PO DAILY 1 0 March 26, 2022 12:00am May 02, 2025 9:14am Start: 07-02-2018 take 1 tablet by maki th twice daily doxycycline monohydrate 100 mg tablet Indications: Acute non-recurrent maxillary sinusitis Take 1 tablet by mouth twice daily. 14 tablet 0 07/02/2018 Active Comment on above: Take 1 tablet by maki th twice daily. fluconazole 150 mg oral tablet (1 source) Azole Antifungal Start: take 1 tablet by mouth once daily fluconazole (DIFLUCAN) 150 mg tablet Indications: Dysuria Take 1 tablet by mouth once daily. 2 tablet 0 07/02/2018 Active Comment on above: Take 1 tablet by maki th once daily. FLUoxetine 20 mg oral tablet (1 source) Serotonin Reuptake Inhibitor Start: 8 take 1 tablet by mouth once daily FLUoxetine HCl 20 mg tablet Indications: YOCASTA (generalized anxiety disorder) Take 1 tablet by mouth once daily. 90 tablet 3 07/02/2018 Active Comment on above: Take 1 tablet by maki th once daily. letrozole 2.5 mg oral tablet (14 sources) Aromatase Inhibitor Start: 4 End: 5 Letrozole 2.5 mg tablet Discontinued 2.5 mg PO DAILY 5 5 2 February 12, 2024 12:00am May 02, 2025 9:14am begin between days 2 and 5 of mentrual cycle Start: 01-08-2024 End: 01-18-2024 Letrozole 2.5 mg tablet Disc ontinued 2.5 mg PO DAILY 5 5 0 January 13, 2024 12:00am January 17, 2024 12:00am January 18, 2024 12:07am begin between days 2 and 5 of mentrual cycle Phenazopyridine (1 source) phenazopyridine HCl (AZO STANDARD MAXIMUM STRENGTH ORAL) Indications: YOCASTA (generalized anxiety disorder) Take by mouth. 0 Active Comment on above: Take by mouth. tranexamic acid 650 mg oral tablet (9 sources) Antifibrinolytic Agent Start: 12-19-2020 End: 09-08-2023 Tranexamic Acid (Lysteda) 650 mg tablet Discontinued 1300 mg PO THREE TIMES A DAY 60 2 December 19, 2020 12:00am September 08, 2023 [...] traffic, initial encounter] Onset: 05-23-2024 Episodic Endometriosis (12 sources) Endometriosis (clinical); Translations: [Endometriosis, unspecified] Chronic Comment on above: age 16 Female infertility (6 sources) Anovulation; Translations: [Female infertility associated with anovulation] 10-20-2023 Chronic Genitourinary symptoms and ill-defined conditions (3 sources) Dysuria; Translations: [Dysuria] Onset: 07-02-2018 Episodic Hemorrhage during ; abruptio placenta; placenta previa (1 source) Threatened ; Translations: [Threatened ] Onset: 04-05-2025 Episodic Open wounds of extremities (7 sources) Open wound of finger; Translations: [Unspecified open wound of unspecified finger without damage to nail, initial encounter] 09-28-2023 Episodic Other complications of (4 sources) Spotting per vagina in ; Translations: [Spotting complicating , unspecified trimester] 04-03-2025 Episodic Comment on above: Pt seeing JUANITO, pt gi jose Rhogam 04/03/25 Other complications of (5 sources) RhD negative; Translations: [Other specified related conditions, unspecified trimester] 04-10-2025 Episodic Comment on above: AB- Other complications of (3 sources) High risk ; Translations: [Supervision of high risk , unspecified, unspecified trimester] 05-02-2025 Episodic Comment on above: , KESHA 11/30/25, : Michael Other female genital disorders (2 sources) Personal history of other diseases of the female genital tract; Translations: [Personal history of oth diseases of the female genital tract] Onset: 11-14-2018 Episodic Other and delivery including normal (2 sources) ; Translations: [Encounter for supervision of normal , unspecified, unspecified trimester] 05-02-2025 Episodic Comment on above: Discussed genetic/ca rrier testing - scheduled 05/15 w/fertility clinic Residual codes; unclassified (4 sources) Infertile 09-08-2023 Episodic Comment on above: SA, HSG and OAR/prog esterone nl SA, HSG and OAR/prog esterone nl;IVF Residual codes; unclassified (2 sources) Conceived by in vitro fertilization; Translations: [Other specified health status] 05-02-2025 Episodic Comment on above: Transfer date 03/14 - 5day embryo Screening and history of mental health and substance abuse codes (1 source) H/O: anxiety state; Translations: [Personal history of other mental and behavioral disorders] 05-02-2025 Episodic Comment on above: Stable; no meds/coun seling Superficial injury; contusion (1 source) Contusion of right great toe; Translations: [Contusion of right great toe without damage to nail, initial encounter] Onset: 05-23-2024 Episodic Thyroid disorders (13 sources) Hypothyroidism; Translations: [Hypothyroidism, unspecified] Chronic Comment on above: Synthroid; Thyroid l abs ordered w/NOB Thyroid labs ordered w/NOB Unclassified (1 source) Unknown / UNK(Unknown) Onset: 07-02-2018 Unclassified (8 sources) Infertile; Translations: [Infertility] Urinary tract infections (2 sources) Urinary tract infection, site not specified; Translations: [Urinary tract infection, site not specified] Onset: 11-14-2018 Episodic Past or Other Problems Problem Classification Problem Date Documented Da te Episodic/Chronic Endometriosis (8 sources) Endometriosis 05-06-2022 Results Test Name Value Interpretation Reference Range Facility Office Visit Reporton 2024 Office Visit Report [facility] [address] [place] [address] OFFICE VISIT Date of Service: 05/02/25 MR#: [id number] Acct: [id number] Patient: LON CASTRO THIAGO Rep #: [id number] : 1995 Provider: LUIS ANGEL lamb Age/Sex: 29/F [place] [facility] [place]: Signed Intake Vital Signs 04/03/25 08:46 05/02/25 10:09 Height 5 ft 2 in 5 ft 2 in Weight: 155 lb 4 oz BMI 28.3 BP 118/78 Intake Visit Reasons: PNOB Vitals and Education Chief Complaint: In person PNOB Accompanied by: Allergies amoxicillin Allergy (Intermediate, Verified 05/02/25 09:12) Hives cefaclor (From Ceclor) Allergy (Intermediate, Verified 05/02/25 09:12) Hives sulfamethoxazole (From Bactrim) Allergy (Intermediate, Verified 05/02/25 09:12) Hives trimethoprim (From Bactrim) Allergy (Intermediate, Verified 05/02/25 09:12) Hives Medications ???Medication ???Instructions ???Recorded ???Confirmed ???Type cholecalciferol (vitamin D3) 50 50 mcg PO DAILY 12/19/20 05/02/25 History mcg (2,000 unit) capsule iron 18 mg tablet 18 mg PO DAILY 12/19/20 05/02/25 H istory docosahexaenoic acid 200 mg mg PO 05/02/25 05/02/25 History capsule ( DHA) levothyroxine 25 mcg tablet 75 mcg PO DAILY 05/02/25 05/02/25 History (Synthroid) Is last menstrual period known: Yes Post menopausal: No Patient : Yes Have you fallen in the past year?: No Nurse's Note: Pt here for secondary amenorrhea. Vitals WNL. PNOB questions completed. Problem list, allergies, and medications updated. First trimester ACOG education completed. Pt reports dietary restriction of no red meat or pork. Assessment and Plan Assessment and Plan (1) Supervision of high-risk : Status: Acute Qualifiers: Trimester: first trimester Qualified Code(s): O09.91 - Supervision of high risk , unspecified, first trimester Comment: , KESHA 11/30/25, : Michael Orders: Orders CBC W/Diff, Automated Today O09.90 - Supervision of high risk , unspecified, unspecified trimester Type Screen Today O09.90 - Supervision of high risk , unspecified, unspecified trimester Rubella IgG Today O09.90 - Supervision of high risk , unspecified, unspecified trimester Hepatitis C Antibody Today O09.90 - Supervision of high risk , unspecified, unspecified trimester Hepatitis B Surface Antigen Today O09.90 - Supervision of high risk , unspecified, unspecified trimester Culture, Urine Today O09.90 - Supervision of high risk , unspecified, unspecified trimester Syphilis Antibodies Today O09.90 - Supervision of high risk , unspecified, unspecified trimester Chlamydia/GC SYLVIA aptima Today O09.90 - Supervision of high risk , unspecified, unspecified trimester HIV Today O09.90 - Supervision of high risk , unspecified, unspecified trimester Thyroid Stim Hormone (TSH) Today E03.9 - Hypothyroidism, unspecified, E06.3 - Autoimmune thyroiditis, O09.90 - Supervision of high risk , unspecified, unspecified trimester Free T4 Today E03.9 - Hypothyroidism, unspecified, E06.3 - Autoimmune thyroiditis, O09.90 - Supervision of high risk , unspecified, unspecified trimester [facility] Misc. Today E03.9 - Hypothyroidism, unspecified, E06.3 - Autoimmune thyroiditis, O09.90 - Supervision of high risk , unspecified, unspecified trimester Plan RTO NOB appt Clinical Quality Measures Falls Risk Screening/Assistive Devices Have you fallen in the past year?: No 05/02/25 1037 Date Sherice Thomas STEWARDESSES TEACHER STEWARDESSES TEACHER-C Cosigner Signature: Date (if applicable) CC: Normal [facility] [id number] 04-03-2025 [facility] [place] COMMENT Normal . [facility] Comment on above: Order Comment: [id number] ANTIBODY SCREEN LAV WB RF Result Comment: Test Ordered: [id number] Antibody Screen Antibody Screen Negative CB Reference Range: Negative Performed at: CB - [facility] [address] [id number] Software Development Engineer: Demarcus Cox PhD, Phone: [phone] Performed By: #### L 3410.9992, B882-1 #### [facility] [address] [place], [address] Metal Fabrication Supervisor Office Visit Reporton 04-03-2025 Metal Fabrication Supervisor Office Visit Report [facility] [address], [address] [place] [address] OFFICE VISIT Date of Service: 04/03/25 MR#: [id number] Acct: [id number] Name: LON CASTRO Rep #: [id number] : 1995 Provider: Dr. Rae Sebastian DO Age/Sex: 29/F [place] [facility] [place]: Signed with Addenda ADDENDUM by Dr. Rae Manjarrez DO on 04/25/25 at 1549 Assessment and Plan Assessment and Plan (1) Rh negative state in antepartum period: Status: Acute Orders: Orders Rhogam Injection 04/03/25 O26.859 - Spotting complicating , unspecified trimester Plan patient is 28 weeks in her 3rd trimester of receiving rhogam on this day. 04/25/25 1549 Date Rae Manjarrez DO cc: * Signed Intake Vital Signs 09/28/23 09:17 04/03/25 08:46 Height 5 ft 2 in 5 ft 2 in Intake Visit Reasons: Rhogam injection per JV Allergies amoxicillin Allergy (Intermediate, Verified 09/28/23 09:16) Hives cefaclor (From Ceclor) Allergy (Intermediate, Verified 09/28/23 09:16) Hives sulfamethoxazole (From Bactrim) Allergy (Intermediate, Verified 09/28/23 09:16) Hives trimethoprim (From Bactrim) Allergy (Intermediate, Verified 09/28/23 09:16) Hives PFSH PFSH Medical History Anemia Asthma Endometriosis Surgical History History of tonsillectomy removal of endometriosis Family History Mother Hypertension Allergies Social History household members: spouse current occupational status: employed current occupation: [employer], Directly history of recent travel: No sexually active: Yes Smoking Status: Never smoker alcohol intake: current alcohol intake frequency: a few times a week substance use type: does not use diet: other what type of physical activity do you participate in: aerobics frequency: 1-2 times per week do you feel safe at home: Yes additional social history: - [place] History 0 Elective abortions Hx Para Spontaneous abortions Hx # Term Pregnancies Ectopic pregnancies Hx # Pregnancies Multiple births # of living children HPI Rhogam injection per JV Details: LON CASTRO is a 29 year old who presents for a rhogam injection only Office Procedures Injections Site of injection: right gluteal IM Medication Given: Yes Is this a patient provided medication?: No Office Meds RhoGAM Ultra-Filtered PLUS 1,500 unit (300 mcg) intramuscular syringe Performing Provider: Rae Manjarrez DO Performing Location: [facility] Administered by: Kerri Yap RN on 04/03/25 08:42 Dose Route Admin Location Dispensed Lot Number Expiration Date [place] Man ufacturer 1,500 unit IM Right Glute 1 [id number] 03/07/27 36919-621-45 [facility] Coding Level of Care Code No Charge Diagnoses Rh negative state in antepartum period O26.899; Z67.91 Assessment and Plan Assessment and Plan (1) Rh negative state in antepartum period: Status: Acute Orders: Orders Rhogam Injection 04/03/25 O26.859 - Spotting complicating , unspecified trimester 04/10/25 1254 Date Rae Dennisigner Signature: Date (if applicable) CC: [facility] [id number] 03-31-2025 ABO and Rh group Nom (Bld) Blood group AB Rh(D) negative [facility] Comment on above: Performed By: #### L 3410.9992, B882-1 #### [facility] [place], [address] [place] PARATHYROID STUDYon 09-27 [place] PARATHYROID STUDY ORIGINAL EXAMINATION: PARATHYROID [id number]/24/20 12:55 pm TECHNIQUE: 35 mCi of Tc [...] Date: 09/27/2024 2:34:17 PM Ordering Provider: ALLA YOUNGER [facility] MAIN US THYROIDon 05-24-2024 US THYROID [...] 05/24/2024 11:51:04 AM Ordering Provider: ALLA YOUNGER [facility] ([place]) XR TOES GREAT 3 VIEWS RIGHTo n [...] 05/23/2024 9:36:20 PM Ordering Provider: JOSIAH FREEMAN [facility] ([place]) Serum or plasma progesterone measurement (mass/volume)Ordered By: Nabila Vera on 01-28-2024 Progesterone [Mass/Vol] 22.37 ng/mL See Comment [facility] Comment on above: Progesterone Referen ce Table: UNITS Female: Follicular 0.15 - 1.40 ng/mL Luteal 3.34 - 25.56 ng/mL Mid-luteal 4.44 - 28.03 ng/mL Postmenopausal 0.0 - 0.73 ng/mL : 1st Trimester 11.22 - 90.00 ng/mL 2nd Trimester 25.55 - 89.40 ng/mL 3rd Trimester 48.40 -422.50 ng/mL Serum or plasma progesterone measurement (mass/volume)Ordered By: Sherice Thomas on 01-02-2024 Progesterone [Mass/Vol] 51.57 ng/mL See Comment [facility] Comment on above: Progesterone Referen ce Table: UNITS Female: Follicular 0.15 - 1.40 ng/mL Luteal 3.34 - 25.56 ng/mL Mid-luteal 4.44 - 28.03 ng/mL Postmenopausal 0.0 - 0.73 ng/mL : 1st Trimester 11.22 - 90.00 ng/mL 2nd Trimester 25.55 - 89.40 ng/mL 3rd Trimester 48.40 -422.50 ng/mL Serum or plasma progesterone measurement (mass/volume)Ordered By: Sherice Thomas on 10-10-2023 Progesterone [Mass/Vol] 11.09 ng/mL See Comment [facility] Comment on above: Progesterone Referen ce Table: UNITS Female: Follicular 0.15 - 1.40 ng/mL Luteal 3.34 - 25.56 ng/mL Mid-luteal 4.44 - 28.03 ng/mL Postmenopausal 0.0 - 0.73 ng/mL : 1st Trimester 11.22 - 90.00 ng/mL 2nd Trimester 25.55 - 89.40 ng/mL 3rd Trimester 48.40 -422.50 ng/mL Cervical or vagninal specime n microscopic examination by cytology stain (reported asOrdered By: Sherice Thomas on 09-08-2023 Cytology report Cyto stain Doc (Cvx/Vag) Comment . [facility] Comment on above: The Pap smear is a s creening test designed to aid in thedetection of premalignant and malignant conditions of theuterine cervix. It is not a diagnostic procedure andshould not be used as the sole means of detecting cervicalcancer. Both false-positive and false-negative reports dooccur. Laboratory - CytologyOrdered By: Sherice Thomas on 09-08-2023 Master Police Detective Cyto stain Nom (Cvx/Vag) [ID] Comment . [facility] Comment on above: Lashell Wellington, Cytot echnologist (ASCP) Laboratory - Miscellaneous t estsOrdered By: Sherice Thomas on 09-08-2023 Service comment (Unsp spec) [Interp] Comment . [facility] Comment on above: This liquid based Th inPrep(R) pap test was screened withthe use of an image guided system. Service comment (Unsp spec) [Interp] . . [facility] No Panel InformationOrdered By: Sherice Thomas on 09-08-2023 Human Papillomavirus Screen Comment . [facility] Comment on above: The HPV DNA reflex c cathryn were not met with this specimenresult therefore, no HPV testing was performed.Performed at: [facility] [id number] Director: Terese Rebolledo MD, Phone: [phone] Pathology report final diagnosis Narrative Comment . [facility] Comment on above: NEGATIVE FOR INTRAEP ITHELIAL LESION OR MALIGNANCY. HCG,Urine Qualon 11-14-2018 HCG.beta subunit ( test) Ql (U) Negative Normal Negative [facility] Comment on above: Result Comment: Preg jens is the most common reason for HCG in urine, although choriocarcinoma, hydatidiform mole, and certain nontropho- blastic malignancies also result in detectable urinary HCG levels. Sensitivity = 20mIU/mL. Performed By: #### U AMAC, HCGUR, UAMIC #### [address] [address] [place] [address] Urinalysis,Macroon 9 Appearance Nom (U) Clear Normal Clear [facility] Comment on above: Performed By: #### U AMAC, HCGUR, UAMIC #### [address] [address] [place] [address] Bilirubin,Ur Negative Normal Negative [facility] Comment on above: Performed By: #### U AMAC, HCGUR, UAMIC #### [address] [address] [place] [address] Color Nom (U) Yellow Normal Lt. Yellow [facility] Comment on above: Performed By: #### U AMAC, HCGUR, UAMIC #### [address] [address] Glucose Ql (U) NEG (Normal) Normal Negative [facility] Comment on above: Performed By: #### U AMAC, HCGUR, UAMIC #### [address] [address] [place] [address] Ketone,Urine Negative Normal Negative [facility] Comment on above: Performed By: #### U AMAC, HCGUR, UAMIC #### [address] [address] [place] [address] Nitrite Ql (U) Positive Normal Negative [facility] Comment on above: Performed By: #### U AMAC, HCGUR, UAMIC #### [address] [address] Occult Blood,Ur Negative Normal Negative [facility] Comment on above: Performed By: #### U AMAC, HCGUR, UAMIC #### [address] [address] pH (U) 7.0 Normal 5.0-8.0 [facility] Comment on above: Performed By: #### U AMAC, HCGUR, UAMIC #### [address] [address] Protein mass conc (U) Negative Normal Negative [facility] Comment on above: Performed By: #### U AMAC, HCGUR, UAMIC #### [address] [address] Specific [place],Urine 1.005 Normal 1.005-1.030 [facility] Comment on above: Performed By: #### U AMAC, HCGUR, UAMIC #### [address] [address] [place] [address] Urobilinogen Qn (U) Normal (0.2) Normal 0-1 [facility] Comment on above: Performed By: #### U AMAC, HCGUR, UAMIC #### [address] [address] [address] WBC #/vol (Bld) Trace Normal Negative [facility] Comment on above: Performed By: #### U AMAC, HCGUR, UAMIC #### [address] [address] [place] [address] Urinalysis,Microscopicon Bacteria LM.HPF #/area (Urine sed) Few (1-5) Normal Negative [facility] Comment on above: Performed By: #### U AMAC, HCGUR, UAMIC #### [address] [address] [place] [address] Epithelial cells LM.HPF #/area (Urine sed) 0 - 2 Normal 3-5 [facility] Comment on above: Performed By: #### U AMAC, HCGUR, UAMIC #### [address] [address] [place] [address] RBC LM.HPF #/area (Urine sed) Negative Normal 0-2 [facility] Comment on above: Performed By: #### U AMAC, HCGUR, UAMIC #### [address] [address] [place] [address] WBC LM.HPF #/area (Urine sed) 3 - 5 Normal 0-5 [facility] Comment on above: Performed By: #### U AMAC, HCGUR, UAMIC #### [address] [address] Cult Urineon 07-02-2018 Cult Urine Test performed at [facility] ORGANISM: Klebsiella pneumoniae (ID: 1) 10,000-50,000 CFU/ml Normal [facility] Comment on above: Performed By: #### C _URI ####[address] [address] Urinalysis Routineon 018 Bacteria LM.HPF #/area (Urine sed) 2+ Abnormal None [facility] Comment on above: Performed By: #### U RIN2 ####[address] [address] Ep Cells Urine 1.7 /hpf Normal 0.0-5.0 [facility] Comment on above: Performed By: #### U RIN2 ####[address], [place] [address] Hyaline Cast 0.8 /lpf Normal 0.0-1.0 [facility] Comment on above: Performed By: #### U RIN2 ####[address] [address] RBC,Urine 4.8 /hpf Normal 0.0-5.0 [facility] Comment on above: Performed By: #### U RIN2 ####[address] [address] WBC, Urine 14.4 /hpf High 0.0-5.0 [facility] Comment on above: Performed By: #### U RIN2 ####[address] [address] Appearance Nom (U) CLEAR Normal [facility] Comment on above: Performed By: #### U RIN2 ####[address] [address] Bilirubin Urine Negative Normal Negative [facility] Comment on above: Performed By: #### U RIN2 ####[address] [address] Color Nom (U) YELLOW Normal [facility] Comment on above: Performed By: #### U RIN2 ####[address] [address] Glucose Ql (U) Negative Normal Negative [facility] Comment on above: Performed By: #### U RIN2 ####[address] [address] Hemoglobin,Urine Negative Normal Negative [facility] Comment on above: Performed By: #### U RIN2 ####[address] [address] Ketone Urine Negative Normal Negative [facility] Comment on above: Performed By: #### U RIN2 ####[address] [address] Leukocytes Esterase MODERATE Abnormal Negative [facility] Comment on above: Performed By: #### U RIN2 ####[address] [address] Nitrites Urine Negative Normal Negative [facility] Comment on above: Performed By: #### U RIN2 ####[facility] [place], [place] [address] pH Test strip (U) 7.0 [pH] Normal 5.0-8.0 [facility] Comment on above: Performed By: #### U RIN2 ####[facility] [place], [place] [address] Protein Urine Negative Normal Negative [facility] Comment on above: Performed By: #### U RIN2 ####[facility] [place], [place] [address] Specific [place], Ur 1.010 Normal 1.005-1.030 [facility] Comment on above: Performed By: #### U RIN2 ####[address] [address] Urobilinogen,Ur 0.2 EU/dL Normal 0.0-1.0 [facility] Comment on above: Performed By: #### U RIN2 ####[address] [address] Vital Signs Date Time Vital Sign Value Performing Clinician Facility 05-08-2025 11:16-0400 Body height 157.48 cm EMILY HEREDIA Work Phone: [facility] 05-08-2025 11:16-0400 Body mass index (BMI) [Ratio] 28.8 kg/m2 EMILY HEREDIA Work Phone: [facility] 05-08-2025 11:16-0400 Body weight 71.32 kg EMILY HEREDIA Work Phone: [facility] 05-08-2025 11:16-0400 Diastolic blood pressure 81 mm[Hg] EMILY HEREDIA Work Phone: [facility] 05-08-2025 11:16-0400 Systolic blood pressure 122 mm[Hg] EMILY HEREDIA Work Phone: [facility] 05-02-2025 10:09-0400 Body mass index (BMI) [Ratio] 28.3 kg/m2 EMILY HEREDIA Work Phone: [facility] 05-02-2025 10:09-0400 Body weight 70.42 kg EMILY HEERDIA Work Phone: [facility] 05-02-2025 10:09-0400 Diastolic blood pressure 78 mm[Hg] EMILY HEREDIA Work Phone: [facility] 05-02-2025 10:09-0400 Systolic blood pressure 118 mm[Hg] EMILY HEREDIA Work Phone: [facility] 04-03-2025 08:46-0400 Body height 157.48 cm EMILY HEREDIA Work Phone: [facility] 05-23-2024 20:19-0400 Diastolic Blood Pressure Non-Invasive 80 mm[Hg] JOSIAH FREEMAN MD [facility] 05-23-2024 20:19-0400 Heart rate 84 /min JOSIAH FREEMAN MD [facility] 05-23-2024 20:19-0400 Respiratory rate 16 /min JOSIAH FREEMAN MD [facility] 05-23-2024 20:19-0400 Systolic Blood Pressure Non-Invasive 128 mm[Hg] JOSIAH FREEMAN MD [facility] 05-23-2024 18:55-0400 Blood Pressure Cuff Size JOSIAH FREEMAN MD [facility] 05-23-2024 18:55-0400 Blood Pressure Location JOSIAH FREEMAN MD [facility] 05-23-2024 18:55-0400 Blood Pressure Method JOSIAH FREEMAN MD [facility] 05-23-2024 18:55-0400 Body temperature 97.16 [degF] JOSIAH FREEMAN MD [facility] 05-23-2024 18:55-0400 Body weight 63.6 kg JOSIAH FREEMAN MD [facility] 05-23-2024 18:55-0400 Diastolic Blood Pressure Non-Invasive 92 mm[Hg] JOSIAH FREEMAN MD [facility] 05-23-2024 18:55-0400 Heart rate 81 /min JOSIAH FREEMAN MD [facility] 05-23-2024 18:55-0400 Respiratory rate 16 /min JOSIAH FREEMAN MD [facility] 05-23-2024 18:55-0400 Systolic Blood Pressure Non-Invasive 138 mm[Hg] JOSIAH FREEMAN MD [facility] 09-28-2023 09:17-0500 Body height 157.48 cm STEWARDESSES TEACHER-C Sherice [place] STEWARDESSES TEACHER Work Phone: [facility] 09-28-2023 09:17-0500 Body mass index (BMI) [Ratio] 26.2 kg/m2 [employer]EWARDESS[employer] TEACHER-C Sherice William STEWARDESSES TEACHER Work Phone: [facility] 09-28-2023 09:17-0500 Body temperature 97.1 [degF] [employer]ARDESSES TEACHER-C Sherice William STEWARDESSES TEACHER Work Phone: [facility] 09-28-2023 09:17-0500 Body weight 64.86 kg STEWARDESSES TEACHER-C Sherice [place] STEWARDESSES TEACHER Work Phone: [facility] 09-28-2023 09:17-0500 Diastolic blood pressure 90 mm[Hg] [employer]ARDESSES TEACHER-C Sherice William STEWARDESSES TEACHER Work Phone: [facility] 09-28-2023 09:17-0500 Heart rate 83 /min STEWARDESS[employer] TEACHER-C Sherice [place] STEWARDESSES TEACHER Work Phone: [facility] 09-28-2023 09:17-0500 Respiratory rate 16 /min [employer]EWARDESSES TEACHER-C Sherice William STEWARDESSES TEACHER Work Phone: [facility] 09-28-2023 09:17-0500 SaO2% (BldA) [Mass fraction] 100 % [employer]EWARDESSES TEACHER-C Sherice William STEWARDESSES TEACHER Work Phone: [facility] 09-28-2023 09:17-0500 Systolic blood pressure 119 mm[Hg] STEWARDESSES TEACHER-C Sherice [place] STEWARDESSES TEACHER Work Phone: [facility] 09-08-2023 13:49-0500 Body height 157.48 cm STEWARDESSES TEACHER-C Sherice [place] STEWARDESSES TEACHER Work Phone: [facility] 09-08-2023 13:42-0500 Body mass index (BMI) [Ratio] 27.1 kg/m2 STEWARDESSES TEACHER-C Sherice [place] STEWARDESSES TEACHER Work Phone: [facility] 09-08-2023 13:42-0500 Body weight 67.13 kg STEWARDESSES TEACHER-C Sherice [place] STEWARDESSES TEACHER Work Phone: [facility] 09-08-2023 13:42-0500 Diastolic blood pressure 78 mm[Hg] STEWARDESSES TEACHER-C Sherice William STEWARDESSES TEACHER Work Phone: [facility] 09-08-2023 13:42-0500 Systolic blood pressure 104 mm[Hg] STEWARDESSES TEACHER-C Sherice [place] STEWARDESSES TEACHER Work Phone: [facility] Encounters Encounter Date Encounter Type Care Provider Facility Start: 05-08-2025 End: 05-08-2025 ambulatory Rae Manjarrez Facility:[facility] Start: 05-08-2025 End: 05-08-[address] Rae Manjarrez DO -[facility] Work Phone: Start: 05-02-2025 End: 05-02-2025 Patient encounter procedure Sherice William STEWARDESSES TEACHER-C -[facility] Work Phone: Start: 05-02-2025 End: 05-02-2025 ambulatory EMILY HEREDIA Work Phone: -[facility] Start: 04-03-2025 End: 04-03-[address] Rae Manjarrez DO -[facility] Work Phone: Start: 04-03-2025 End: 04-03-2025 ambulatory EMILY HEREDIA Work Phone: -[facility] Start: 03-31-2025 End: 03-31-2025 ambulatory EMILY HEREDIA Work Phone: -Laboratory Start: 03-31-2025 End: 03-31-[address] Raj Keating DO -Laboratory Work Phone: Start: 03-31-2025 End: 03-31-2025 ambulatory [facility] Facility:[facility] Start: 09-27-2024 End: 09-27-[address] EMILY HEREDIA DO Facility:A Start: 09-27-2024 End: 09-27-2024 Patient encounter procedure ALLA ARNE BEEF FARMER-PUPPET ENGINEER [facility] Start: 05-23-2024 End: 05-23-2024 Emergency department patient visit JOSIAH FREEMAN MD [facility] Start: 05-23-2024 End: 05-23-2024 ambulatory ALLA YOUNGER BEEF FARMER-PUPPET ENGINEER Facility:B Start: 05-23-2024 End: 05-23-2024 Patient encounter procedure ALLA AREN BEEF FARMER-PUPPET ENGINEER [facility] Start: 01-28-2024 End: 01-28-2024 ambulatory [facility] Work Phone: Start: 01-28-2024 End: 01-28-2024 Patient encounter procedure [facility] Work Phone: Start: 01-02-2024 End: 01-02-2024 ambulatory [facility] Work Phone: Start: 01-02-2024 End: 01-02-2024 Patient encounter procedure [facility] Work Phone: Start: 10-10-2023 End: 10-10-2023 Patient encounter procedure [facility] Work Phone: Start: 09-28-2023 End: 09-28-2023 Emergency department patient visit [employer]EWARDESSES TEACHER-C Sherice Thomas STEWARDESSES TEACHER Work Phone: [facility] Work Phone: Start: 09-08-2023 End: 09-08-2023 ambulatory STEWARDESSES TEACHER-C Sherice Barrioss STEWARDESSES TEACHER Work Phone: [facility] Work Phone: Start: 09-08-2023 End: 09-08-2023 Patient encounter procedure STEWARDESSES TEACHER-C Sherice Barrioss STEWARDESSES TEACHER Work Phone: [facility]Laboratory, Specimen Work Phone: Start: 09-08-2023 End: 09-08-2023 Patient encounter procedure STEWARDESSES TEACHER-C Sherice Barrioss STEWARDESSES TEACHER Work Phone: [facility] Work Phone: Start: 03-26-2022 Non-patient / Non-visit [facility] Start: 03-26-2022 End: 03-26-2022 Patient encounter procedure [facility] Start: 04-11-2021 End: 04-11-2021 ambulatory Rae Ely [facility] Comment on above: Population Health Na vigation Outreach (OFFBOARDING- Needs PCP Updated) Start: 11-14-2018 Emergency department patient visit UNKNOWN PROVIDER [facility] Start: 07-02-2018 End: 07-03-2018 Patient encounter YAW GARZA Facility:[facility] Start: 07-02-2018 End: 07-02-2018 Patient encounter YAW GARZA Facility:[facility] Procedures Date Procedure Procedure Detail Performing Clinician Start: 03-31-2025 Procedure EMILY HOUSTON [facility] Work Phone: Comment on above: Test Ordered: [id number] Antibody ScreenAntibody Screen Negative CB Reference Range: NegativePerformed at: - [facility] [id number] [place], [place] [id number] Director: Demarcus Cox PhD, Phone: [phone] Start: 03-26-2022 Salpingography EMILY HEREDIA Start: 07-02-2018 Adult depression scr eening assessment Rae Ely Plan of Treatment Date Care Activity Detail Author Start: 03-31-2025 Procedure [facility] Start: 09-28-2023 [facility] Start: 2021 Influenza vaccination INFLUENZA (#1) [facility] Start: 07-02-2019 Adult depression screening assessment DEPRESSION SCREENING [facility] Start: 07-02-2019 ANNUAL PCP TEAM CHRONIC DISEASE VISIT ANNUAL PCP TEAM CHRONIC DISEASE VISIT [facility] Start: 2015 PAP TESTING PAP TESTING [facility] Start: 2013 Urine microalbumin profile DTAP,TDAP,TD (1 - Tdap) [facility] Start: 2012 HEPATITIS C SCREENING HEPATITIS C SCREENING [facility] Start: 2012 HIV SCREENING HIV SCREENING [facility] Start: 2012 SPIROMETRY SPIROMETRY [facility] Start: 2006 COVID-19 VACCINE (1) COVID-19 VACCINE (1) [facility] Start: 2005 HPV VACCINE (1 - 2-dose series) HPV VACCINE (1 - 2-dose series) [facility] CBC W Auto Different ial panel - Blood [facility] Chlamydia deoxyribon ucleic acid detection [facility] Hepatitis C antibody measurement [facility] Patient Education ED Skin Tear ( Skin Avulsion) [facility] Work Phone: Patient referral [facility] Work Phone: Procedure [facility] Progesterone [Mass/v olume] in Serum or Plasma [facility] Rubella IgG measurement [facility] Serologic test for syphilis [facility] T4 free measurement [facility] Thyroid stimulating hormone measurement [facility] Immunizations Immunization Date Immunization Notes Care Provider Andres amaro 09-28-2023 tetanus toxoid, redu olga diphtheria toxoid, and acellular pertussis vaccine, adsorbed STEWARDESSES TEACHER-C Sherice Thomas NP Work Phone: [facility] Payers Date Payer Category Payer Self-pay [id number] 2024 Unknown 2024 Unknown [id number] 2024 Unknown [id number] 1994 Unknown [id number] 2.16.8 [id number] 1994 Unknown [id number] 2.16.8 [id number] 1994 Unknown [id number] 2.16.8 [id number] 1994 Unknown [id number] 2.16.8 [id number] Unknown [id number] Unknown [id number] Unknown [id number] 2.16.8 [id number] Unknown [id number] 2.16.8 [id number] Unknown [id number] 2.16.8 [id number] Unknown [id number] 2.16.8 [id number] Social History Date Type Detail Facility Start: 07-02-2018 End: 05-02-2025 Tobacco smoking status NHIS Never smoker [facility] Start: 07-02-2018 Tobacco use and exposure Never used [facility] Start: 07-02-2018 Alcohol intake Current drinke r of alcohol (finding) [facility] Start: 07-02-2018 Alcohol Comment weekly [facility] Start: 1995 Sex Assigned At Not on file [facility] Start: 12-19-2020 End: 09-28-2023 Tobacco smoking status NHIS Unknown if ever smoked [facility] Start: 1995 Sex Assigned At Female [facility] Tobacco smoking status [facility] Start: 04-04-2020 Sex Female (finding) [facility] Functional Status Date Assessment Result Facility 05-23-2024 [facility] 05-23-2024 Functional Status Standard Safet y ID band on, Allergy Band on, Call device within reach, Bed in low position, Wheels locked, Phone within reach, personal items within reach, Visitor at bedside, Safety level maintained [facility] Mental Status Date Assessment Result Facility 05-23-2024 Mental Status Orientation Oriented x 4 [facility] 05-23-2024 [facility] Clinical Notes 04-11-2021 to 05-08-2025 Note Date & Type Note Facility 05-08-2025 Progress note [facility] 04-03-2025 Evaluation note Diagnosis Onset Date Resolution Rh negative state in antepartum period acute April 03 8:22am [facility] Work Phone: 1(781) 702-520006-30-2025 Evaluation note* Diagnosis Onset Date Resolution Status Admit Date Rh negative state in antepar carson period acute April 03, 2025 8:22am Supervision of high-risk acute May 02, 2025 8:34am Conceived by in vitro fertilization acute May 08, 2025 10:33am 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 Hypothyroidism acute May 10:33am acute May 08 10:33am Rh negative state in antepar carson period acute May 08, 2025 10:33am Supervision of high-risk acute May 08, 2025 10:33am [facility] Work Phone: 1(409) 430-171712-24-2024 Note* Exam Date Time Procedure Performing Provider Status 09/27/24 12:55 PM NM Parathyroid Study JENNA MEDINA MD; Auth (Verified) [id number] ORIGINAL EXAMINATION: PARATHYROID FDOTOKSONLAR92/24/2024 12:55 pm TECHNIQUE: 35 mCi of Tc [...] Sign Date: 09/27/2024 2:34:17 PM Ordering Provider: [facility]08-19-2024 Hospital Discharge instructions Patient Education 05/23/2024 20:14:52 [...] cold can help reduce redness and swelling. [id number] [employer]. [address] [place] [address]. All rights reserved. This information is not [...] swelling, or pus coming from any wound 2611-5113 [employer]. [address] [place] [address]. All rights reserved. This information is not intended as a substitute for professional medical care. Always follow yourhealthcare professional's instructions. Follow Up Care 05/23/2024 18:57:40 With:EMILY HEREDIA DO Address: [address] [place] [address] A [place], [place] [address]- When:2-4 days [facility] 08-19-2024 Emergency department Discharge summary Discharge Instructions Thank you for allowing [facility] to assist you with your healthcare needs. [...] with EMILY HEREDIA DO When:Within 2-4 days Where:[address] [place] [address] [place] [address]- Allergies Bactrim Ceclor amoxicillin Medications Please ask [...] cold can help reduce redness and swelling. [phone] [employer]. [address] [facility], [place] [address]. All rights reserved. This information is not [...] swelling, or pus coming from any wound [phone] [employer]. [address] [place] [address], [place] [address]. All rights reserved. This information is not intended as a substitute for professional medical care. Always follow yourhealthcare professional's instructions. Additional Information VACCINATE! IT SAVES LIVES! Members of the community who have not yet received the COVID-19 vaccine and would like to receive it can visit one of [facility] vaccine clinics. There are many vaccine clinic locations within the [facility]. For locations and available times, please visit www.gettheshot.coronavirus.[place].gov/. It is important to note that some COVID mobile vaccine clinics are held outdoors and may be canceled in rainy or stormy conditions. To learn more about pediatric vaccinations (ages 5-11), we invite you to visit the [facility] [facility] webpage. https://www.[employer]ell[employer].org/pages/[email or web address]-Lxdibcadczu-Rzecnyvgzx-Bgmuc-Leu stions.htmlTo learn more about the COVID-19 vaccine, we invite you to visit the CDC website for a list of frequently asked questions. https://www.cdc.gov/coronavirus/2019-ncov/vaccines/faq.html [facility] Patient Portal Access Instructions: Stay connected with your healthcare team and access your personal medical information anytime with the [facility] Patient Portal. If you would like a full copy of your medical records please contact the [facility] Medical Records Department Thursday through Thursday between 8a.m. and 4:30p.m. Please follow the directions below to access the portal: 1.Access the email account you provided upon registration to the hospital.2.Look for an invitation email from [facility].3.Open the email and access the invitation link: Accept Invitation to [facility].Fill in the required raza to create your account. Sign into www.The Simple with your username and password that you [...] you will allow to register on the [facility] Patient Portal for access to your information. You can also access the [facility] Patient Portal on the Moe Del[employer] colette. Simply click on Health Records under SpecialtyCare and then click on the [employer] logo. HOW TO SAFELY DISPOSE OF PRESCRIPTION [...] Call your local pharmacy or go to [email or web address] to find one close to you.3.Make use of household items: Use cat litter or old coffee grounds to dispose medications if other options arenot available. Mix your drugs with these household products, seal them in an airtight container andthrow it into the garbage. Call [facility]: [phone] to be sure your drugs can be [...] reviewed and explained to me and I,LON CASTRO Aunanatand my current condition and have read and understand these discharge instructions. I have received a written copy of the plan/instructions. If I have questions, I am aware that I should contact my doctor. Patient/Sample Mounter Signature: Date/Time: Relationship to Patient: Witness Name/Signature: Date/Time: [facility]08-19-2024 Note ORIGINAL EXAMINATION: THREE XRAY VIEWS OF [...] Date: 05/23/2024 9:36:20 PM [facility] + Plan note Future Scheduled Tests Radiology* US Thyroid 05/23/24 [facility] 12-05-2023 NotePap Smear Specimen AdequacyDecember 2022 11:59pmComment.Satisfactory for evaluation. Endocervical and/or squamous metaplasticcells (endocervical component)are present.[facility] INTER[facility]ED A#[id number] Health [facility]bleComment on above:Satisfactory for evaluation. Endocervical and/or squamous metaplasticcells (endocervical component)are present.09-08-2023 NotePap Smear Specimen AdequacyDecember 2022 11:59pmComment.Satisfactory for evaluation. Endocervical and/or squamous metaplasticcells (endocervical component)are present.[facility] A#[id number] Health PrebleComment on above:Satisfactory for evaluation. Endocervical and/or squamous metaplasticcells (endocervical component)are present.05-14-2021 NoteHNO ID: [id number] Author: Rae Ely Service: ? Author Type: [...] scheduled: Reminders sent: [facility]atha Ely [facility] NoteHNO ID: [id number] Author: Rae Ely Service: ? Author Type: [...] scheduled: Reminders sent: [facility]atha Ely [facility] History of Present illness Narrative* Rae [...] Ely Population Health Navigator [facility] NotePatient Outreach ([facility]) LON CASTRO ([id number]) 1995 F Date Time Provider Department 04/11/21 RAE ELY [facility] During your visit today, we recorded the [...] sent: Leatha Ely Population Health Navigator Rae Ely 05/14/2021 9:25 AM Signed POPULATION HEALTH NAVIGATION OUTREACH OFF-BOARDING Provider Action/FYI Pt identified by name and . Attempt 3. Patient has not responded to Offboarding outreach attempts. PCP updated to No PCP due to no [facility] PCP activity and provider left system over a year ago. Outreach Outcome: Unable to reach patient: Left message Off-Boarding Actions: Appointment scheduled: Reminders sent: Leatha Ely [facility] Allergies As of Date: 04/11/2021 [...] [J45.909] Encounter Status:Closed by RAE ELY [facility]/21[facility] Jaren England [facility] September 28, 2023 9:42am Note Date/Time September 28, 2023 9:42am [facility] Medical Records Department [address] [place] [address] Emergency Department Summary 09/28/23 MR#: [id number] Acct: [id number] Name: LON CASTRO THIAGO Rep #:[id number] : 1995 28 From: Jaren England MD PCP: NOT,DEFINED Status:PRE ER Location: ED HPI History of Present Illness Chief Complaint: Laceration Detail of Chief Complaint: Laceration radial side left index finger Informant: patient Occured/Mechanism Comment: Laceration while cutting potatoes for [place] dinner Onset/Context/Timing Context: Sudden Onset Timing: Continuous Quality of Pain: Throbbing Location: Radial side left index finger from PIP joint to DIP joint. Current Severity: Mild Maximum Severity: Moderate Worsened by: Nothing Relieved by: Nothing Associated Symptoms Associated Symptoms: Negative for Parasthesia, Weakness or Loss of Funtion Narrative Narrative: Patient is a 28-year-old wuzqq-[id number] female presents laceration left index finger. Last tetanus unknown. She denies paresthesia, anesthesia or motor weakness. She denies prior injury to the finger. She has no other complaints. Tetanus Immunization: Unknown [facility] Medical History Anemia Asthma Endometriosis Home Medications [...] spouse current occupational status: employed current occupation: [employer] history of recent travel: No sexually active: [...] Triage Chief Complaint: Laceration ED Provider: Jaren Engladn Dx/Rx/DC Orders Clinical Impression: Avulsion of skin [...] your Primary Care Provider. Call [facility] ([phone]) or report to the closest Emergency Room. Call 911 if necessary. 09/28/23941 <Electronically signed by Jaren England MD> Cosigner Signature (if applicable): CC: DEFINED NOT ~ Signed [facility] Work Phone: Evaluation note* Diagnosis Onset Date Resolution Status Endometriosis determined by laparoscopy acute Hypothyroidism acute Infertility [facility] Work Phone: Evaluation note* Diagnosis Onset Date Resolution Status Endometriosis determined by laparoscopy acute Infertility [facility] Work Phone: Evaluation noteNo assessment information available [facility] Work Phone: Hospital course Narrative No data available for this section [facility] Discharge instructions Additional Instructions 1. Keep dressing on for the next 24 to 48 hours 2. Keep finger clean and [facility] the [facility] Work Phone: Hospital Discharge instructions No data available for this section [facility] Progress note No data available for this section [facility] Prorjqhh note Author Rae Dolan [facility] Note Date/Time May 08, 2025 11: 53am [facility]'s [address], [address] [place] [address] OFFICE VISIT Date of Service: 05/08/25 MR#: [id number] Acct: [id number] Name: LON CASTRO Rep #: [id number] : 1995 Provider: Dr. Tamiko Manjarrez DO Age/Sex: 29/F Location[facility] Status: Signed Intake Vital Signs 04/03/25 08:46 05/02/25 10:09 05/08/25 11:16 Height 5 ft 2 in 5 ft 2 in 5 ft 2 in Weight: 157 lb 4 oz BMI 28.8 BP 122/81 H Intake Visit Reasons: *NEW* NOB IV Transfer 03/14, KESHA 12/02 Director Of Business Development Required: No Is patient in pain?: No Allergies amoxicillin Allergy (Intermediate, Verified 05/08/25 11:16) Hives cefaclor (From Ceclor) Allergy (Intermediate, Verified 05/08/25 11:16) Hives sulfamethoxazole (From Bactrim) Allergy (Intermediate, Verified 05/08/25 11:16) Hives trimethoprim (From Bactrim) Allergy (Intermediate, Verified 05/08/25 11:16) Hives Medications ?Medication ?Instructions ?Recorded ?Confirmed ?Type cholecalciferol (vitamin D3) 50 50 mcg PO DAILY 05/08/25 History mcg (2,000 unit) capsule iron 18 mg tablet 18 mg PO DAILY 12/19/2001/27 History docosahexaenoic acid 200 mg mg PO 05/02/25 05/08/25 Hi story capsule ( DHA) levothyroxine 25 mcg tablet 75 mcg PO DAILY 05/02/25 0 05/08/25 History (Synthroid) Last Menstrual Period: 08/19/23 Zika: Zika virus screening: Negative : No PFSH PFSH Medical History History of anxiety Spotting in early Endometriosis determined by laparoscopy Infertility Anovulation Anemia Asthma Surgical History History of tonsillectomy removal of endometriosis Family History Mother Hypertension Allergies Grandfather Heart disease Cancer Grandmother Cancer Grandfather Colon cancer Social History adopted: No household members: spouse number of children: 0 current occupational status: employed 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 current occupational exposures/hazards: No pets and animals: Yes pets and animals: dog(s) history of recent travel: Yes ([place]: March 2025) out of state: Yes out of country:No sexually active: Yes Smoking Status: Never smoker second hand exposure: No alcohol intake: current alcohol intake frequency: holidays/special occasions only details: Not while substance use type: does not use diet: other well-balanced diet: about half the time caffeine: No eating out: 1-3 times/week during the past year weight has: increased > 10 lbs what type of physical activity do you participate in: none kp/religious: Confucianist seatbelt use: always do you feel safe at home: Yes 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 Transfer from Dr. Keating OB Visit KESHA Calculator Estimated Delivery Date Method Current WG Current Estimate 11/30/25 Conception 10w 4d Other Estimates 11/28/25 Ultrasound #1 10w 6d Estimated Due Date: 11/30/25 Expected Delivery Route/Plan Labor Preferences- CB/BF classes: [] labor support person: [] labor intervention preferences: [] pain management options preferred: [] cut cord/dad catch: [] : [] PP control planned: [] discussed possible routes of delivery and associated risks: [] special requests: [] Specific Issue/Plans Covid status: [] Flu vaccine: [] Tdap vaccine: [] Rhogam: [] LARC form signed: [] Problem list reviewed and updated with the most current plan of care details and appropriate orders placed. Relevant counseling for the gestational age provided. Continue routine care and follow up unless otherwise noted in visit notes/problem list details 1 Initial Weight: Not Recorded Date -?-?-?-?-?-?-?-?-?-?-?-?- EGA Weight BP Urine Prot -?-?-?-?-?-?-?-?-?-?-?-?- Glucose FHR FuHt Pres Dilation -?-?-?-?-?-?-?-?-?-?-?-?- Effaced St Visit Note 05/08/25 -?-?-?-?-?-?-?-?-?-?-?-?- 10w 4d 157 lb 4 oz 122/81 -?-?-?-?-?-?-?-?-?-?-?-?- 168 -?-?-?-?-?-?-?-?-?-?-?-?- JV- CRL consiste nt with the IVF implant day (5)is doing NIPT with Dr. keating so will see if he does other labs before ordering them here. Menstrual History Last Menstrual Period: 08/19/23 Reported LMP: unknown (IVF ) Normal amount/duration: Yes Frequency in days: 28 On hormonal BC at conception: No hCG+: 03/22/25 Antepartum Record Genetic Screening: Congenital Heart Defect: Other, Neural Tube Defect: Other, Hemoglobinopathy Or Carrier: Other, Cystic Fibrosis: Other, Chromosome Abnormality: Other, Wild-Sachs: Other, Hemophilia: Other, Intellectual Disability/Autism: Other, Recurrent Loss/Stillbirth: Other, Other Structural Defect: Patient (Brother with club foot), Other Genetic Disease: Other and Maternal Metabolic Disorder: Other Infection History: Live with someone with TB or Exposed to TB: No, Patient or Partner has history of Genital Herpes: No, Rash or Viral illness since last mentrual period: No, Prior GBS-Infected child: No, History of STD: No, HIV Infection: No, History of Hepatitis: No, Recent travel outside of [place]: No, Concern for hepatitis exposure: No, Varicella immune: Yes (Had vaccine) and Covid Vaccinated: Yes (Pfizer - no boosters) Medical History Medical History: Positive: Auto-immune disorder (Ramon's ), Psychiatric (Anxiety - stable), Thyroid dysfunction (Hypothyroid), D (Rh) Sensitized (AB-, Rhogam 04/03), Pulmonary (e.g.,TB,Asthma) (Asthma - stable, controlled), Seasonal allergies, Drug/latex allergies/reactions (See allergy list), Industrial Commercial Groundskeeper surgery (Endometriosis ), Operations/hospitalizations (see Surg hx) and Infertility (IVF) and Negative: Diabetes, Hypertension, Heart disease, Kidney disease/UTI, Neurologic/epilepsy, Depression/ depression, Hepatitis/liver disease, Varicosities/phlebitis, Trauma/domestic violence, History of blood transfusions, Breast, Anesthetic complications, History of abnormal pap, Uterine anomaly/ivonne, Anti-retroviral treatment, Relevant family history and Other ACOG First Trimester First Trimester: Desire for , Alcohol, Tobacco Cessation, Illicit/Recreational Drug/Substance Use, Intimate Partner Violence, Barriers to care, Unstable Housing, Communication Barriers, Environmental/Work Hazards, Anticipated Course of Care, Toxoplasmosis Precations, Use of Any medications, Sexual activity, Exercise, Dental Care, Sauna/Hot tub use, Seat Belt use, Childbirth classes/Hospital facilities, Travel, Indications for Ultrasound and Screening for Aneuploidy; Discussed ROS Const Reports system reviewed and no additional complaints, except as documented, Reports fatigue and Denies fever(s) Eyes Reports system reviewed and no additional complaints, except as documented ENT Reports system reviewed and no additional complaints, except as documented Card Denies chest pain and Denies dyspnea Resp Reports system reviewed and no additional complaints, except as documented, Denies cough and Denies dyspnea GI Denies abdominal pain and Reports nausea Reports system reviewed and no additional complaints, except as documented Musc Reports system reviewed and no additional complaints, except as documented Skin/Breast Reports system reviewed and no additional complaints, except as documented Neuro Yes system reviewed and no additional complaints, except as documented Psych Reports system reviewed and no additional complaints, except as documented Endo Reports system reviewed and no additional complaints, except as documented and Reports fatigue Exam Const General: healthy appearing, comfortable and no acute distress Orientation: alert [facility] Head: normal to inspection, normocephalic and atraumatic Ears: hearing grossly normal bilaterally and external ears normal Nose: external nose normal and nares normal Mouth: oral mucosae normal Teeth and gingiva: dentition normal Eyes General: appearance normal, both eyes and all related structures Neck Neck: normal visual inspection Thyroid: thyroid normal Resp Effort & Inspection: normal respiratory effort GI Inspection: normal to inspection Palpation: soft and no hepatosplenomegaly General: bladder normal to palpation External Female Exam: normal external appearance and normal appearance of the urethra Urethra: normal appearance of the urethra Speculum Exam - Vagina: normal appearance of the vagina and normal vaginal discharge Speculum Exam - Cervix: normal appearance of the cervix Bimanual Exam- Vagina & Uterus: normal bimanual exam, bladder normal to palpation, non-tender and other Bimanual Exam- Adnexa, other: non-tender Skin General: no rashes or lesions noted Neuro Motor: muscle tone normal throughout and no movement abnormalities noted Extrem General: normal to inspection and full ROM Supplemental Info [facility] book given and patient encouraged to read about nutrition, exercise, weight gain, and food avoidance in . 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 E03.9 Hypothyroidism type: acquired Assessment and Plan Assessment and Plan (1) Supervision of high-risk : Status: Acute Qualifiers: Trimester: first trimester Qualified Code(s): O09.91 - Supervision of high risk , unspecified, first trimester Comment: , KESHA 11/30/25, : Michael (2) : Status: Acute Comment: Discussed genetic/carrier testing - scheduled 05/15 w/fertility clinic (3) Conceived by in vitro fertilization: Status: Acute Comment: Transfer date 03/14 - 5day embryo (4) Rh negative state in antepartum period: Status: Acute Comment: AB- (5) Ramon's disease: Status: Acute Comment: Thyroid labs ordered w/NOB (6) Hypothyroidism: Status: Acute Qualifiers: Hypothyroidism type: acquired Qualified Code(s): E03.9 - Hypothyroidism, unspecified Comment: Synthroid; Thyroid labs ordered w/NOB Plan: Patient oriented to practice and discussed care expectations and screenings. OG book offered to patient. Discussed routine and specially indicated labs if needed- patient consents to testing. See problem list details for plan information. Optional screening including maternal carrier screenings, neural tube defect screening, genetic screening options including quad screen, nuchal translucency, sequential screening, and NIPT screening offered to patient and patient chose: NIPT with DR. keating next week. 05/08/25 1153 <Electronically signed by Rae Arango DO> Date _ Rae Manjarrez DO Cosigner Signature: Date (if applicable) CC: ~ [facility] Work Phone: Reason for referral (narrative)No reason for referral information availableBlMountain Community Medical Services Work Phone: Summary Purpose Family History Relationship Condition Age at Onset Recorded Date/T shanelle mother Hypertension Unknown Allergy Unknown Relationship Condition Age at Onset Recorded Date/T shanelle mother Hypertension Unknown Allergy Unknown grandfather Cardiac disease Unknown Malignant neoplasm Unknown grandmother Malignant neoplasm Unknown grandfather Malignant neoplasm of colon Unknown Advance Directives Advance Directive Response Recorded Date/ Time Living Will No September 28, 023 9:18am Power of Logistics And Planning Manager No September 28, 2023 9:18am Advance Directive Response Recorded Date/ Time Living Will No September 28, 023 10:18am Power of Logistics And Planning Manager No September 28, 2023 10:18am Chief Complaint and Reason for Visit Chief Complaint INFERTILITY INFERTILITY Reason for Visit Endometriosis determ ined by laparoscopy Hypothyroidism Infertility Chief Complaint conception/fertility questions PAP Reason for Visit Endometriosis determ ined by laparoscopy Infertility Chief Complaint conception/fertility questions PAP lac Reason for Visit Endometriosis determ ined by laparoscopy Infertility Chief Complaint lac EORDER Chief Complaint EORDER Chief Complaint Admit Date Rhogam injection per JV April 03, 2025 8:22am Chief Complaint Admit Date Rhogam injection per JV April 03, 2025 8:22am PNOB Vitals and Education May 02 8:34am Reason for Visit Admit Date Rh negative state in antepartum period J une 2024 8:22am Chief Complaint Admit Date Rhogam injection per JV April 03, 2025 8:22am PNOB Vitals and Education May 02 8:34am *NEW* NOB IV Transfer 03/14, KESHA 12/02 ust 2024 10:33am Reason for Visit Admit Date Rh negative state in antepartum period J une 2024 8:22am Supervision of high-risk May 02, 2025 8:34am Conceived by in vitro fertilization Augu [facility] 2024 10:33am Ramon's disease May 08, 2025 10: 33am Hypothyroidism May 08, 2025 10: 33am May 08, 2025 10: 33am Rh negative state in antepartum period A ugust 2024 10:33am Supervision of high-risk Augus t 2024 10:33am Additional Source Comments INFORMATION SOURCE (unrecogn ized section and content) DATE CREATED AUTHOR 08/03/2018 [facility] DATE CREATED AUTHOR AUTHOR'S ORGANIZ ATION 11/24/2018 [facility] DATE CREATED AUTHOR AUTHOR'S ORGANIZ ATION 05/15/2021 [facility] DATE CREATED AUTHOR AUTHOR'S ORGANIZ ATION 05/27/2024 [facility] ([place]) DATE CREATED AUTHOR AUTHOR'S ORGANIZ ATION 10/18/2024 [facility] DATE CREATED AUTHOR AUTHOR'S ORGANIZ ATION 05/03/2025 [facility] Source Comments (unrecognize d section and content) In the event this informatio n is protected by the Federal Confidentiality of Alcohol and Drug Abuse Patient Records regulations: The Federal rules restrict any use of the information to criminally investigate or prosecute any alcohol or drug abuse patient.[facility] Reason for Visit (unrecogniz ed section [...] this section No data available for this sectionGoals may be documented in an alternate sectionGoals may be documented in an alternate sectionGoals may be documented in an alternate sectionGoals may be documented in an alternate section Care Teams (unrecognized sec tion and content) Team Status: Active Member Role Status Dates EMILY HEREDIA Primary Care Provider Active Team Status: Inactive Member Role Status Dates Sherice Thomas STEWARDESSES TEACHER, STEWARDESSES TEACHER-C Attending Provider Active Team Status: Inactive Member Role Status Dates YAN DIAZ Primary Care Provider Active Sherice Thomas STEWARDESSES TEACHER, STEWARDESSES TEACHER-C Attending Provider, Referring Provider Active Team Status: [...] Physician Primary Care Provider Active Sherice Thomas STEWARDESSES TEACHER, STEWARDESSES TEACHER-C Attending Provider, Referring Provider Active Team Status: Inactive Member Role Status Dates EMILY YAN Primary Care Provider Active Nabila Vera CNM Attending Provider, Referring Pr ovider Active Team Status: Active Member Role/Relationship Status Dates EMILYYAN Primary Care Provider Active Star t: March 31, 2025 Dr. Raj Keating DO Attending Provider Active Start: March 31, 2025 Dr. Raj Keating DO Referring Provider Active Start: March 31, 2025 Team Status: Inactive Member Role/Relationship Status Dates Dr. Rae Manjarrez DO Attending Provider Activ e Start: April 03, 2025 End: April 03, 2025 Team Status: Inactive Member Role/Relationship Status Dates YAN DIAZ Primary Care Provider Active Star t: March 31, 2025 End: March 31, 2025 Dr. Raj Keating DO Attending Provider Active Start: March 31, 2025 End: March 31, 2025 Dr. Raj Keating DO Referring Provider Active Start: March 31, 2025 End: March 31, 2025 Team Status: Inactive Member Role/Relationship Status Dates Sherice Thomas NP, STEWARDESSES TEACHER-C Attending Provider Active Start: May 02, 2025 End: May 02, 2025 Team Status: Inactive Member Role/Relationship Status Dates Dr. Rae Manjarrez , DO Attending Provider Activ e Start: May 08, 2025 End: May 08, 2025 FOR RECORDS PERTAINING TO PATIENTS WHO ARE [...] BE BASED ON THE PRIMARY CLINICAL RECORDS. [employer] provides no warranty or guarantee of the accuracy or completeness of information in this document.
[2025-05-10 21:07] LABS: Chlamydia By Nucleic Acid AMP Negative (Negative); Gonococcus By Nucleic Acid AMP Negative (Negative)
== END | disposition home or self-care (01) ==
LOC: LABSPEC 16:15
PROVIDERS: Referring Provider Obstetrics & Gynecology; Visit Provider Obstetrics & Gynecology
DX: O09.90 Supervision of high risk pregnancy, unspecified, unspecified trimester (principal); Z3A.00 Weeks of gestation of pregnancy not specified
CPT/HCPCS: 87086; 87491; 87591

== ENCOUNTER → 2025-06-13 | Outpatient (CLI) | payer OTHER, SELFPAY ==
[2025-06-13 16:54] LABS: Hematocrit 34.5 % (37-47); Hemoglobin 11.2 g/dL (12.0-15.0); Immature Granulocytes Count 0.100 X10^3/uL (0.0-0.0); Mean Corp Hgb Conc 32.5 g/dL (32-36); Mean Corpuscular Volume 85.4 fL (81-99); Mean Platelet Vol. 10.2 fl (6.2-12.0); NRBC Flagged by Analyzer 0 % (0-5); Platelet Count 339 K/mm3 (150-450); RBC Distribution Width CV 13.2 % (11.6-14.6); RBC Distribution Width SD 41.3 fl (35.1-43.9); Red Blood Count 4.04 M/mm3 (4.2-5.4); White Blood Count 13.1 K/mm3 (4.4-11.0)
[2025-06-13 18:00] LABS: Hepatitis B Surface Antigen Nonreactive (Nonreactive); Hepatitis C Antibody Nonreactive (Nonreactive)
== END | disposition home or self-care (01) ==
PROVIDERS: Obstetrics & Gynecology; Referring Provider Obstetrics & Gynecology; Visit Provider Obstetrics & Gynecology
DX: O09.90 Supervision of high risk pregnancy, unspecified, unspecified trimester (principal); Z3A.00 Weeks of gestation of pregnancy not specified
CPT/HCPCS: 36415; 85025; 86803; 87340

== ENCOUNTER → 2025-06-16 | Outpatient (CLI) | payer OTHER, SELFPAY | END | disposition home or self-care (01) | LOC: LABSPEC 15:13 | PROVIDERS: Referring Provider Obstetrics & Gynecology; Visit Provider Obstetrics & Gynecology | DX: O09.91 Supervision of high risk pregnancy, unspecified, first trimester (principal); Z3A.00 Weeks of gestation of pregnancy not specified | CPT/HCPCS: 87086; 87088 ==

== ENCOUNTER → 2025-07-11 | Outpatient (CLI) | payer OTHER, SELFPAY ==
[2025-07-11 17:54] LABS: HIV Nonreactive (Nonreactive); Syphilis Antibodies Nonreactive (Nonreactive)
== END | disposition home or self-care (01) ==
PROVIDERS: Visit Provider Obstetrics & Gynecology
DX: O09.91 Supervision of high risk pregnancy, unspecified, first trimester (principal); O99.281 Endocrine, nutritional and metabolic diseases complicating pregnancy, first trimester; E06.3 Autoimmune thyroiditis; E03.9 Hypothyroidism, unspecified; Z3A.00 Weeks of gestation of pregnancy not specified
CPT/HCPCS: 36415; 86703; 86762; 86780

== ENCOUNTER → 2025-09-04 | Outpatient (CLI) | payer OTHER, SELFPAY ==
[2025-09-04 08:42] LABS: Hematocrit 35.5 % (37-47); Hemoglobin 11.1 g/dL (12.0-15.0); Immature Granulocytes Count 0.180 X10^3/uL (0.0-0.0); Mean Corp Hgb Conc 31.3 g/dL (32-36); Mean Corpuscular Volume 84.9 fL (81-99); Mean Platelet Vol. 10.6 fl (6.2-12.0); NRBC Flagged by Analyzer 0 % (0-5); Platelet Count 318 K/mm3 (150-450); RBC Distribution Width CV 14.0 % (11.6-14.6); RBC Distribution Width SD 43.0 fl (35.1-43.9); Red Blood Count 4.18 M/mm3 (4.2-5.4); White Blood Count 12.6 K/mm3 (4.4-11.0)
[2025-09-04 09:21] LABS: HIV Nonreactive (Nonreactive); Syphilis Antibodies Nonreactive (Nonreactive)
[2025-09-04 09:29] LABS: Glucose Challenge Gest 1H 50g 142 mg/dL (70-140)
== END | disposition home or self-care (01) ==
LOC: LAB 07:49
PROVIDERS: PCP Internal Medicine; Referring Provider Obstetrics & Gynecology; Visit Provider Obstetrics & Gynecology
DX: O09.92 Supervision of high risk pregnancy, unspecified, second trimester (principal); O26.892 Other specified pregnancy related conditions, second trimester; Z3A.23 23 weeks gestation of pregnancy
CPT/HCPCS: 36415; 82950; 85025; 86703; 86780; 86850; 86900; 86901

== ENCOUNTER → 2025-09-08 | Outpatient (CLI) | payer OTHER, SELFPAY ==
--- OUTSIDE RECORDS SUMMARY | 2025-09-08 06:43 | XMS RPT_ITS | CCD ---
Author Organization [facility] Care Team Providers Care Mica Spreader Name Role Phone JAQUELINE GARZA (QA ARCHITECT) Unavailable Unavailabl JAQUELINE Wheeler (QA ARCHITECT) Unavailable UnavailJAQUELINE Solares (QA ARCHITECT) Unavailable Unavailabl JAQUELINE Wheeler (QA ARCHITECT) Unavailable Unavailabl JAQUELINE Wheeler (QA ARCHITECT) Unavailable Unavailabl e PROVIDER, UNKNOWN Attending Unavailable PROVIDER, UNKNOWN Referring Unavailable Jaqueline Garza Primary Care Unavailable Jaqueline Garza CNP Primary Care Provider EMILY HEREDIA Primary Care Provider UnavailDr. Susanna Tran Referring Provider [phone] Dr. Susanna Garcia Other Provider [phone] Dr. Rae Manjarrez Attending Provider [phone] William HSU, LUIS ANGEL Smiley Attending Provider YAN FARRAR, DR DIAZ Primary Care Physician JOSIAH FREEMAN MD Attending Unavailable YAN FARRAR, DR DIAZ Primary Care Unavailable ALLA MAR Attending Unav maricarmen HEREDIA DO, DR DIAZ Primary Care Unavailable YAN FARRAR, DR DIAZ Primary Care Unavailable ALLA MAR Attending Unav ailable EMILY HEREDIA Primary Care Provider [phone] Dr. Raj Keating DO Attending Provider Dr. Raj Keating DO Referring Provider Dr. Rae Manjarrez DO Attending Provider William HSU-CSherice Attending Provider Dr. Rae Manjarrez DO Referring Provider Martin FLORIAN, Dr. Mullins Attending Provider [phone] Martin FLORIAN, Dr. Mullins Referring Provider EMILY HEREDIA Primary Care Physician Zuri FARRAR, Dr. Anthony Attending Physician [phone] Alycia Dolan DO, Dr. Mcbride Attending Physician William QUALITY ASSURANCE MONITOR CHASSIS-C, Sherice Attending Physician [phone] Martin FLORIAN, Dr. Mullins Attending Physician EMILY HEREDIA Primary Care Unavailable NOHEMY FROST Attending Unavailable SUSANNA GARCIA Referring Unavailabl e VANDEVELDERAE Referring Unavailab le LORETA SHAH Attending Unavailable EMILY HEREDIA Primary Care Unavailable CARRIE CROWELL Attending Unavailable LORETA SHAH Referring Unavailable EMILY HEREDIA Primary Care Unavailable Alycia Dolan DO, Dr. Mcbride Attending Physician William QUALITY ASSURANCE MONITOR CHASSIS, Sherice Attending Unavailable Marcanthony, Susanna Attending Unavailable Marcanthony, Susanna Attending Unavailable Marcanthony, Susanna Referring Unavailable Marcanthony, Susanna Attending Unavailable Marcanthony, Susanna Referring Unavailable Vande Velde, Rae Attending Unavailabl e Vande Velde, Rae Referring Unavailabl e FISTEK, AL1 Primary Care Unavailable Raj Keating Attending Unavailable Raj Keating Referring Unavailable Marcanththeodore, Susanna Attending Unavailable Marcanthony, Susanna Attending Unavailable Vande Velde, Rae Attending Unavailabl e William Sherice HSU Attending Unavailable Vande VeldeRae Attending Unavailabl e Vande Velde, Rae Attending Unavailabl e Allergies Allergy Classification Reported Allergen(s) Allergy Type Date of Onset Reaction(s) Facility Cephalosporins (antibiotic) (1 source) Cefaclor Drug Allergy 07-02-20 18 Unknown [facility] Penicillins (antibiotic) (1 source) Amoxicillin Drug Allergy 07-02-20 18 Unknown [facility] Sulfamethoxazole / Trimethoprim (1 source) Sulfamethoxazole / Trimethoprim Drug Allergy 07-02-20 18 Unknown [facility] (20 sources) amoxicillin; Translations: [AMOXICILLIN] Drug Allergy 08-26-[address] [facility] Repository (20 sources) cefaclor; Translations: [CEFACLOR] Drug Allergy 08-26-[address] [facility] Repository (1 source) sulfamethoxazole / trimethoprim; Translations: [SULFAMETHOXAZOLE-T RIMETHOPRIM] Drug Allergy [facility] Repository (16 sources) Sulfamethoxazole Drug Allergy 12-20-19 21 [facility] (16 sources) Trimethoprim Drug Allergy 12-20-19 21 [facility] (4 sources) Sulfamethoxazole / Trimethoprim; Translations: [sulfamethoxazole-t rimethoprim] Drug Allergy 08-26-20 10 [facility] (1 source) Penicillins; Translations: [PENICILLINS] Propensity to adverse reactions to drug (disorder) [facility] Repository (1 source) Sulfonamides (Antibiotic); Translations: [SULFA ANTIBIOTICS] Propensity to adverse reactions to drug (disorder) [facility] Repository (1 source) OTHER; Translations: [OTHER] Propensity to adverse reactions to food (disorder) 02-11-20 11 [facility] Repository (1 source) Sulfamethoxazole Drug Allergy 08-08-20 25 [facility] Repository (1 source) Trimethoprim Drug Allergy 08-08-20 25 [facility] Repository Medications Current Medications Medication Drug Class(es) Dates Sig (Normalized) Sig (Original) cholecalciferol 0.05 mg oral capsule (16 sources) Vitamin D Start: 12-19-2020 take 1 capsule by mouth once daily docosahexaenoic acid 200 mg oral capsule (9 sources) Start: 05-02-2025 famotidine 20 mg oral tablet (6 sources) Histamine-2 Receptor Antagonist Start: 06-13-2025 take 1 tablet by mouth twice daily Iron (16 sources) Start: 12-19-2020 take 1 tablet by mouth once daily Start: 12-19-2020 take 1 tablet by mouth once da alvaro Iron 18 mg tablet Active 18 mg PO DAILY December 19, 2020 12:00am Start: 12-19-2020 take 1 tablet by mouth once da alvaro iron 18 mg tablet Active 18 MG PO DAILY December 18, 2020 11:00pm Start: 12-19-2020 take 1 tablet by mouth once da alvaro iron 18 mg tablet Active 18 MG PO DAILY December 19, 2020 12:00am levothyroxine sodium 0.025 m g oral tablet (20 sources) l-Thyroxine Start: 05-02-2025 take 3 tablets by mo [facility] once daily Start: 12-19-2020 End: 05-02-2025 take 1 tablet by mouth once daily Levothyroxine (Synthroid) 25 mcg tablet Discontinued 25 ug PO DAILY December 19, 2020 12:00am May 02, 2025 9:14am Completed/Discontinued Medications Medication Drug Class(es) Dates Sig (Normalized) Sig (Original) [id number] 200 actuat albuterol 0.09 mg/actuat metered dose [...] / dextroamphetamine sulfate 7.5 mg oral tablet (16 sources) Central Nervous System Stimulant Start: 12-19-2020 [...] 3-7 doxycycline hyclate 100 mg oral capsule (17 sources) Tetracycline-class Drug Start: 03-26-2022 End: 05-02-2025 [...] oral tablet (1 source) Azole Antifungal Start: 8 take 1 tablet by mouth [...] on above: Take 1 tablet by maki once daily. letrozole 2.5 mg oral tablet (20 sources) Aromatase Inhibitor Start: End: Letrozole 2.5 mg tablet Discontinued 2.5 mg [...] mouth. tranexamic acid 650 mg oral tablet (16 sources) Antifibrinolytic Agent Start: 12-19-2020 End: 09-08-2023 [...] traffic, initial encounter] Onset: 05-23-2024 Episodic Endometriosis (19 sources) Endometriosis (clinical); Translations: [Endometriosis, unspecified] Chronic Comment on above: age 16 Female infertility (13 sources) Anovulation; Translations: [Female infertility associated with anovulation] 10-20-2023 Chronic Genitourinary symptoms and ill-defined conditions (3 sources) Dysuria; Translations: [Dysuria] Onset: 07-02-2018 Episodic Hemorrhage during ; abruptio placenta; placenta previa (6 sources) Placenta previa; Translations: [Complete placenta previa NOS or without hemorrhage, unspecified trimester] Onset: 04-05-2025 07-11-2025 Episodic Comment on above: POSSIBLE VASA PREVIA -MFM f/u scheduled POSSIBLE VASA PREVIA -MFM, continues rpt MFM @ 28 weeks, pelvic rest Open wounds of extremities (14 sources) Open wound of finger; Translations: [Unspecified open wound of unspecified finger without damage to nail, initial encounter] 09-28-2023 Episodic Other complications of (11 sources) Spotting per vagina in ; Translations: [Spotting complicating , unspecified trimester] 04-03-2025 Episodic Comment on above: Pt seeing JUANITO, pt gi jose Rhogam 04/03/25 Other complications of (20 sources) RhD negative; Translations: [Other specified related conditions, unspecified trimester] 04-10-2025 Episodic Comment on above: AB- AB-Rhogam given 04/03 Other complications of (20 sources) High risk ; Translations: [Supervision of high risk , unspecified, unspecified trimester] 05-02-2025 Episodic Comment on above: , KESHA 11/30/25, : Michael Other complications of (1 source) Supervision of high risk , unspecified, first trimester; Translations: [Supervision of high risk , unspecified, first trimester] Onset: 07-21-2025 Episodic Other complications of (1 source) Supervision of high risk , unspecified, second trimester; Translations: [Supervision of high risk , unspecified, second trimester] Onset: 07-11-2025 Episodic Other complications of (1 source) Other specified related conditions, unspecified trimester; Translations: [Other specified related conditions, unspecified trimester] Onset: 07-11-2025 Episodic Other complications of (1 source) Supervision of high risk , unspecified, unspecified trimester; Translations: [Supervision of high risk , unspecified, unspecified trimester] Onset: 06-21-2025 Episodic Other female genital disorders (2 sources) Personal history of other diseases of the female genital tract; Translations: [Personal history of oth diseases of the female genital tract] Onset: 11-14-2018 Episodic Residual codes; unclassified (11 sources) Infertile 09-08-2023 Episodic Comment on above: SA, HSG and OAR/prog esterone nl SA, HSG and OAR/prog esterone nl;IVF Residual codes; unclassified (20 sources) Conceived by in vitro fertilization; Translations: [Other specified health status] 05-02-2025 Episodic Comment on above: Transfer date 03/14 - 5day embryo Transfer date 03/14 - 5day embryo; echo 22-24w Residual codes; unclassified (1 source) 19 weeks gestation of ; Translations: [19 weeks gestation of ] Onset: 07-11-2025 Episodic Residual codes; unclassified (1 source) Other specified health status; Translations: [Other specified health status] Onset: 07-11-2025 Episodic Residual codes; unclassified (1 source) Unspecified blood type, Rh negative; Translations: [Unspecified blood type, Rh negative] Onset: 07-11-2025 Episodic Residual codes; unclassified (1 source) 15 weeks gestation of ; Translations: [15 weeks gestation of ] Onset: 06-13-2025 Episodic Screening and history of mental health and substance abuse codes (8 sources) H/O: anxiety state; Translations: [Personal history of other mental and behavioral disorders] 05-02-2025 Episodic Comment on above: Stable; no meds/coun seling Superficial injury; contusion (1 source) Contusion of right great toe; Translations: [Contusion of right great toe without damage to nail, initial encounter] Onset: 05-23-2024 Episodic Thyroid disorders (20 sources) Hypothyroidism; Translations: [Hypothyroidism, unspecified] Onset: 07-11-2025 Chronic Comment on above: Synthroid; Thyroid l abs ordered w/NOB Thyroid labs ordered w/NOB Synthroid; Thyroid l abs ordered w/NOB. TSH receptor antibody negative. Unclassified (1 source) Unknown / UNK(Unknown) Onset: 07-02-2018 Unclassified (8 sources) Infertile; Translations: [Infertility] Urinary tract infections (2 sources) Urinary tract infection, site not specified; Translations: [Urinary tract infection, site not specified] Onset: 11-14-2018 Episodic Past or Other Problems Problem Classification Problem Date Documented Date Episodic/Chronic Endometriosis (15 sources) Endometriosis 05-06-2022 Other and delivery including normal (20 sources) ; Translations: [Encounter for supervision of normal , unspecified, unspecified trimester] Onset: 05-08-2025 05-02-2025 Episodic Comment on above: Discussed genetic/ca rrier testing - scheduled 05/15 w/fertility clinic Discussed genetic/ca rrier testing - Normal genetics/Carrier negative per previous records Results Test Name Value Interpretation Reference Range Facility Encoding Clerk Office Visit Reporton 08-08-2025 Encoding Clerk Office Visit Report [facility] [address], [address] [place] [address] OFFICE VISIT Date of Service: 08/08/25 MR#: [id number] Acct: [id number] Name: SHERLY CAMEJO THIAGO Rep #: [id number] : 1995 Provider: Dr. Rae Sebastian DO Age/Sex: 30/F Location: [facility] Status: Signed Intake Vital Signs 05/08/25 11:16 07/11/25 15:35 08/08/25 15:09 Height 5 ft 2 in 5 ft 2 in 5 ft 2 in Weight: 176 lb 4 oz BMI 32.2 BP 119/81 H Intake Visit Reasons: 24wk ob *IVF Chief Complaint: 24wk OB Tip Cutter Required: No Is patient in pain?: No Allergies amoxicillin Allergy (Intermediate, Verified 08/08/25 15:09) Hives cefaclor (From Ceclor) Allergy (Intermediate, Verified 08/08/25 15:09) Hives sulfamethoxazole (From Bactrim) Allergy (Intermediate, Verified 08/08/25 15:09) Hives trimethoprim (From Bactrim) Allergy (Intermediate, Verified 08/08/25 15:09) Hives Medications ???Medication ???Instructions ???Recorded ???Confirmed ???Type cholecalciferol (vitamin D3) 50 50 mcg PO DAILY 12/19/20 08/08/25 History mcg (2,000 unit) capsule iron 18 mg tablet 18 mg PO DAILY 12/19/20 08/08/25 H istory docosahexaenoic acid 200 mg mg PO 05/02/25 08/08/25 History capsule ( DHA) levothyroxine 25 mcg tablet 75 mcg PO DAILY 05/02/25 08/08/25 History (Synthroid) famotidine 20 mg tablet (Pepcid) 20 mg PO BID #60 tabs 06/13/2501/27 Rx Last Menstrual Period: 08/19/23 : No Have you fallen in the past year?: No PFSH PFSH Medical History History of anxiety Spotting in early Endometriosis determined by laparoscopy Infertility Anovulation Anemia Asthma Surgical History History of tonsillectomy removal of endometriosis Family History Mother Hypertension Allergies Grandfather Heart disease Cancer Grandmother Cancer Grandfather Colon cancer Social History adopted: No household members: spouse number of children: 0 current occupational status: employed 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 current occupational exposures/hazards: No pets and animals: Yes pets and animals: dog(s) history of recent travel: Yes ([place]: March 2025) out of state: Yes out of country: No sexually active: Yes Smoking Status: Never [...] physical activity do you participate in: none kp/yazidi: Rastafari seatbelt use: always do you feel safe at home: Yes 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 OB Visit KESHA Calculator Estimated Delivery Date Method Current WG Current Estimate 11/30/25 Conception 23w 5d Other Estimates 11/28/25 Ultrasound #1 24w 0d Expected Delivery Route/Plan Labor Preferences- CB/BF classes: [...] details 1 Initial Weight: Not Recorded Date -???-???-???-???-???- ???-???-???-???-???-? ??-???- EGA Weight BP Urine Prot -???-???-???-???-???- ???-???-???-???-???-? ??-???- Glucose FHR FuHt Pres Dilation -???-???-???-???-???- ???-???-???-???-???-? ??-???- Effaced St Visit Note 05/08/25 -???-???-???-???-???- ???-???-???-???-???-? ??-???- 10w 4d 157 lb 4 oz 122/81 -???-???-???-???-???- ???-???-???-???-???-? ??-???- 168 -???-???-???-???-???- ???-???-???-???-???-? ??-???- JV- CRL cons istent with the IVF implant day (5)is doing NIPT with Dr. west (more content not included)... Normal [facility] [id number] 07-18-2025 [facility] Misc. COMMENT Normal . [facility] Comment on above: Order Comment: [id number] 8TSH R AB Result Comment: Test Ordered: [id number] TSH Receptor Antibody (TBII) TSH Receptor Antibody (TBII) <0.3 U/L ES Reference Range: . Reference Range: Antibody Titer: <1.0 U/L = Negative 1.1 - 1.5 U/L = Equivocal >1.5 U/L = Positive Performed at: [facility] [address] [place] [address] [id number] Oil Burner: Tomasa Whitehead MD, Phone: [phone] Performed at: - [facility] [id number] Oil Burner: Demarcus Cox PhD, Phone: [phone] Performed By: #### L 3890.3859, L149.4220, L509.0588, L3350.3557 ####[facility] [id number] [place], [place], [id number] Progress Noteon 07-18-2025 Injection Molding Machine Offbearer Authentication Interface Message Text [facility] MATERNAL- MEDICINE CONSULT Referring/Requesting Provider: Rae Becerra DO PCP: Emily Heredia MD INDICATION FOR CONSULT: placenta previa, concern for vasa previa HISTORY OF PRESENT ILLNESS: Patient is a 30 y.o. at 20w5d who presents for consultation regarding placenta previa, concern for vasa previa noted on her 18 week anatomy ultrasound. achieved with IVF, low risk cell free DNA screening. She had abnormal uterine bleeding in - Spotting began at five weeks gestation, shortly after embryo transfer via IVF. Receive Rhogam at that time. - No active bleeding at present - On pelvic rest since onset of spotting - Scheduled for echocardiogram Thyroid dysfunction in - Taking Synthroid for thyroid management - TSH levels monitored during by referring OB. Physical activity restrictions - Walking for exercise permitted - Works as a seventh grade sales merchandising specialist - Continue pelvic rest, no intercourse Past Medical History: Diagnosis Date Allergic rhinitis, cause unspecified 12/24/2009 This term is a replacement for an inactive term Asthma stable In vitro fertilization no preimplantation genetics performed. NIPT low risk Infertility, female unexplained infertility Obesity has not had early 1 hour or A1c. Thyroid disease hypothyroid- had thyroid panels checked just before the transfer of embryo Past Surgical History: Procedure Laterality Date ENDOMETRIAL ABLATION TONSILLECTOMY PERTINENT FAMILY HISTORY: Family History Problem Relation Age of Onset Club Hand/Foot Brother Lung Cancer Maternal Grandfather Heart Attack Maternal Grandfather Diabetes Mellitus II Paternal Grandfather Colon Cancer Paternal Grandfather MEDS: Outpatient Medications Marked as Taking for the 07/18/25 encounter (Office Visit) with Loreta Shah, Medication Sig Dispense Refill Ferrous Sulfate 324 MG TBEC Take 324 mg by mouth daily SYNTHROID 50 MCG tablet Take 1.5 Tablets (75 mcg) by mouth daily Vit-Fe Fumarate-FA ( PO) Take by mouth ALLERGY: Allergies[1] REVIEW OF SYSTEMS: ROS no ctxs, LOF, VB. PHYSICAL EXAM: VITAL SIGNS: BP 116/70 Pulse 66 Resp 18 Ht 157.5 cm Wt 77.1 kg (170 lb) SpO2 99% BMI 31.09 kg/m Physical Exam AAOx3, NAD Resp effort normal Gravid IMAGIN. Soto living intrauterine at 20w 5d by with clinical dates. 2. Transvaginal cervical length to evaluate for risk for labor was performed and appeared normal, 51 mm. 3. Placenta is posterior and low-lying. Vessel is seen 2 cm from the internal os. Velamentous cord insertion suspected on prior ultrasound, suboptimal images today due to head over cord insertion. 4. Cardiac anatomy remains suboptimally visualized. IMPRESSION AND RECOMMENDATIONS: Sherly is a 30 y.o. at 20w5d with Active Non-Hospital Problems Diagnosis Date Noted Vasa previa 07/18/2025 Priority: High Velamentous cord insertion with vessel 2 cm from the internal os. Low-lying placenta. Reevaluate at 28 weeks. Mode and timing of delivery depends on placental location and position of the umbilical vessels. Likely delivery at 36 weeks via CD if she remains asymptomatic (no CTXs, vaginal bleeding) and placenta and vessels are at risk of bleeding or rupture during labor. Low lying placenta nos or without hemorrhage, second trimester 07/04/2025 Priority: High Low-lying is diagnosed when the placental tissue is within 2 cm of the internal cervical os. Risks of low-lying placenta includes bleeding, and maternal and morbidity. Low-lying placenta can resolve with advancing gestational age. Reevaluation is recommended at 28 weeks. Pelvic rest and avoidance of digital cervical exams are recommended. 20 weeks gestation of 07/18/2025 Hypothyroidism during in second trimester 07/18/2025 We reviewed that untreated hypothyroidism is associated with adverse outcomes such as: spontaneous miscarriage, preeclampsia, , abruption, stillbirth, low weight, and impaired neuropsychological development. Therefore, treatment with thyroid hormone replacement is recommended. Levothyroxine use recommended during , adjust as needed to achieve goal TSH between the lower reference limit and 2.5 milliunits/L (typical starting dose levothyroxine 100 micrograms daily, adjust by 25-50 micrograms every 4-6 weeks until TSH is within normal limits) Check TSH Q 4-6 weeks Management per referring OB Rh negative state in antepartum period, second trimester 07/18/2025 Management per OB provider. Obesity affecting in second trimester 07/18/2025 Management per OB provider. In vitro fertilization No preimplantation genetics performed. NIPT low risk male. Suboptimal heart views on MFM US x 2. Feta (more content not included)... Normal [facility] HIVon 07-11-2025 HIV Non-Reactive Normal Nonreactive [facility] Comment on above: Result Comment: Non- Reactive Reactive Repeatedly reactive samples must be confirmed according to CDC recommended confirmatory algorithms. The subresults for either HIVAG or AHIV can be used as an aid in the selection of the confirmation algorithm for reactive samples. Send out specimens with Reactive results to [facility] for confirmation. Order the HIV antibody detection and differentiation: #[id number] Performed By: #### L 3890.6006, L509.8002, L509.4006, L3410.9992 ####[facility] [id number] [place], [address] L509.4006on 07-11-2025 Rubella IgG REAC Normal Nonreactive [facility] Comment on above: Result Comment: Anti body Result: Interpretation Non-Reactive: Non-Immune Reactive: Immune The following results were obtained with the [employer] Rubella IgG assay. Results from assays of other manufacturers cannot be used interchangeably. Performed By: #### L 3890.6006, L509.8002, L509.4006, L3410.9992 ####[facility] [id number] [place], [address] Laboratory - Chemistry and C hemistry - challengeOrdered By: Sherice Thomas on 07-11-2025 Glucose Ql (U) Negative [facility] Laboratory - UrinalysisOrder ed By: Sherice Thomas on 07-11-2025 Protein Ql (U) Negative [facility] No Panel InformationOrdered By: Susanna Garcia on 07-11-2025 HIV (1&2) Antibody Non-Reactive Nonreactive [facility] Comment on above: Non-ReactiveReactive Repeatedly reactive samples must be confirmed according to CDC recommended confirmatory algorithms. The subresults for either HIVAG or AHIV can be used as an aid in the selection of the confirmation algorithm for reactive samples.Send out specimens with Reactive results to [facility] for confirmation.Order the HIV antibody detection and differentiation: #[id number] Encoding Clerk Office Visit Reporton 07-11-2025 Encoding Clerk Office Visit Report [facility] [address], [address] [place] [address] OFFICE VISIT Date of Service: 07/11/25 MR#: [id number] Acct: [id number] Name: SHERLY CAMEJO THIAGO Rep #: [id number] : 1995 Provider: LUIS ANGEL lamb Age/Sex: 30/F Location: [facility] Status: Signed Intake Vital Signs 05/08/25 11:16 06/16/25 14:46 07/11/25 15:35 Height 5 ft 2 in 5 ft 2 in 5 ft 2 in Weight: 173 lb 7 oz BMI 31.7 BP 132/76 H Intake Visit Reasons: 20wk ob *IVF Tip Cutter Required: No Is patient in pain?: No Allergies amoxicillin Allergy (Intermediate, Verified 07/11/25 15:35) Hives cefaclor (From Ceclor) Allergy (Intermediate, Verified 07/11/25 15:35) Hives sulfamethoxazole (From Bactrim) Allergy (Intermediate, Verified 07/11/25 15:35) Hives trimethoprim (From Bactrim) Allergy (Intermediate, Verified 07/11/25 15:35) Hives Medications ???Medication ???Instructions ???Recorded ???Confirmed ???Type cholecalciferol (vitamin D3) 50 50 mcg PO DAILY 12/19/20 07/11/25 History mcg (2,000 unit) capsule iron 18 mg tablet 18 mg PO DAILY 12/19/20 07/11/25 H istory docosahexaenoic acid 200 mg mg PO 05/02/25 07/11/25 History capsule ( DHA) levothyroxine 25 mcg tablet 75 mcg PO DAILY 05/02/25 07/11/25 History (Synthroid) famotidine 20 mg tablet (Pepcid) 20 mg PO BID #60 tabs 06/13/2504/28 Rx Last Menstrual Period: 08/19/23 Zika: Zika virus [...] 0 current occupational status: employed 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 current occupational exposures/hazards: No pets and animals: Yes pets and animals: dog(s) history of recent travel: Yes ([place]: March 2025) out of state: Yes out of country: No sexually active: Yes Smoking Status: Never [...] physical activity do you participate in: none kp/yazidi: Rastafari seatbelt use: always do you feel safe at home: Yes 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 OB Visit KESHA Calculator Estimated Delivery Date Method Current WG Current Estimate 11/30/25 Conception 19w 5d Other Estimates 11/28/25 Ultrasound #1 20w 0d Expected Delivery Route/Plan Labor Preferences- CB/BF classes: [...] details 1 Initial Weight: Not Recorded Date -???-???-???-???-???- ???-???-???-???-???-? ??-???- EGA Weight BP Urine Prot -???-???-???-???-???- ???-???-???-???-???-? ??-???- Glucose FHR FuHt Pres Dilation -???-???-???-???-???- ???-???-???-???-???-? ??-???- Effaced St Visit Note 05/08/25 -???-???-???-???-???- ???-???-???-???-???-? ??-???- 10w 4d 157 lb 4 oz 122/81 -???-???-???-???-???- ???-???-???-???-???-? ??-???- 168 -???-???-???-???-???- ???-???-???-???-???-? ??-???- JV- CRL cons istent with the IVF implant day (5)is doing NIPT with Dr. zuri hanks (more content not included)... Normal [facility] Syphilis Antibodieson 2024 Syphilis Abs Non-Reactive Normal Nonreactive [facility] Comment on above: Performed By: #### L 3890.6006, L509.8002, L509.4006, L3410.9992 ####[facility] [address] [place], [place], [address] Urine Cultureon 06-18-2025 URC Culture exhibits no growth. Normal [facility] Comment on above: Performed By: #### M 100.2200 #### [facility] Laboratory [address] [place], [address] Encoding Clerk Office Visit Reporton 06-16-2025 Encoding Clerk Office Visit Report [facility] [address], [address] [place] [address] OFFICE VISIT Date of Service: 06/16/25 MR#: [id number] Acct: [id number] Name: SHERLY CAMEJO THIAGO Rep #: [id number] : 1995 Provider: Dr. Susanna heath MD Age/Sex: 30/F Location: [facility] Status: Signed Intake Vital Signs 06/16/25 09:08 06/16/25 14:46 Height 5 ft 2 in 5 ft 2 in Weight: 167 lb 4 oz BMI 30.6 BP 126/76 H Intake Visit Reasons: spotting/scan per H.G. Tip Cutter Required: No Is patient in pain?: No Allergies amoxicillin Allergy (Intermediate, Verified 06/16/25 14:50) Hives cefaclor (From Ceclor) Allergy (Intermediate, Verified 06/16/25 14:50) Hives sulfamethoxazole (From Bactrim) Allergy (Intermediate, Verified 06/16/25 14:50) Hives trimethoprim (From Bactrim) Allergy (Intermediate, Verified 06/16/25 14:50) Hives Medications ???Medication ???Instructions ???Recorded ???Confirmed ???Type cholecalciferol (vitamin D3) 50 50 mcg PO DAILY 12/19/20 06/16/25 History mcg (2,000 unit) capsule iron 18 mg tablet 18 mg PO DAILY 12/19/20 06/16/25 H istory docosahexaenoic acid 200 mg mg PO 05/02/25 06/16/25 History capsule ( DHA) levothyroxine 25 mcg tablet 75 mcg PO DAILY 05/02/25 06/16/25 History (Synthroid) famotidine 20 mg tablet (Pepcid) 20 mg PO BID #60 tabs 06/13/2509/28 Rx Last Menstrual Period: 08/19/23 Zika: Zika virus [...] 0 current occupational status: employed 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 Details: SHERLY CAMEJO is a 30 year old who presents for routine OB visit. OB Visit KESHA Calculator Estimated Delivery Date Method Current WG Current Estimate 11/30/25 Conception 16w 2d Other Estimates 11/28/25 Ultrasound #1 16w 4d Expected Delivery Route/Plan Labor Preferences- CB/BF classes: [...] details 1 Initial Weight: Not Recorded Date -???-???-???-???-???- ???-???-???-???-???-? ??-???- EGA Weight BP Urine Prot -???-???-???-???-???- ???-???-???-???-???-? ??-???- Glucose FHR FuHt Pres Dilation -???-???-???-???-???- ???-???-???-???-???-? ??-???- Effaced St Visit Note 05/08/25 -???-???-???-???-???- ???-???-???-???-???-? ??-???- 10w 4d 157 lb 4 oz 122/81 -???-???-???-???-???- ???-???-???-???-???-? ??-???- 168 -???-???-???-???-???- ???-???-???-???-???-? ??-???- JV- [facility] cons istent with the IVF implant day (5)is doing NIPT with Dr. keating so will see if he (more content not included)... Normal [facility] Urine cultureOrdered By: Juan J Garcia on 06-16-2025 Bacteria identified Cx Nom (U) Culture exhibits no growth. [facility] Absolute lymphocyte countOrd ered By: Rae Dolan on 06-13-2025 Lymphocytes Auto (Unsp spec) [#/Vol] 2.43 10*3/uL 0.83-4.51 [facility] Absolute neutrophil countOrd ered By: Rae Dolan on 06-13-2025 Neutrophils (Bld) [#/Vol] 9.5 10*3/uL High 2.0-7.7 [facility] Automated lymphocyte count a s percentage of total leukocytesOrdered By: Rae Dolan on 06-13-2025 Lymphocytes/100 WBC Auto (Unsp spec) 18.6 % Low 19-41 [facility] Basophil percentageOrdered B y: Rae Dolan on 06-13-2025 Basophils/100 WBC (Bld) 0.5 % 0-1 [facility] CBC W/Diff, Automatedon 09-0 9-2024 Absolute Lymph 2.43 X10 3/uL Normal 0.83-4.51 [facility] Comment on above: Performed By: #### L 100.0100, L3890.6102, L3890.6301 #### [facility] Laboratory [address] [place], [address] Absolute Neut 9.5 X10 3/uL High 2.0-7.7 [facility] Comment on above: Performed By: #### L 100.0100, L3890.6102, L3890.6301 #### [facility] [address] [place], [address] Basophils/100 WBC (Bld) 0.5 % Normal 0-1 [facility] Comment on above: Performed By: #### L 100.0100, L3890.6102, L3890.6301 #### [facility] [address] [place], [address] Eosinophils/100 WBC (Bld) 0.8 % Normal 0-5 [facility] Comment on above: Performed By: #### L 100.0100, L3890.6102, L3890.6301 #### [facility] [address] [place], [address] Erythrocyte distribution width (RBC) [Ratio] 13.2 % Normal 11.6-14.6 [facility] Comment on above: Performed By: #### L 100.0100, L3890.6102, L3890.6301 #### [facility] [address] [place], [address] Hematocrit (Bld) [Volume fraction] 34.5 % Low 37-47 [facility] Comment on above: Performed By: #### L 100.0100, L3890.6102, L3890.6301 #### [facility] [address] [place], [address] Hemoglobin (Bld) [Mass/Vol] 11.2 g/dL Low 12.0-15.0 [facility] Comment on above: Performed By: #### L 100.0100, L3890.6102, L3890.6301 #### [facility] [address] [place], [address] IG% 0.800 Normal 0.0-0.9 [facility] Comment on above: Result Comment: IG% - Immature Granulocytes (promyelocytes, myelocytes and metamyelocytes) > 1% indicates that a LEFT SHIFT is Present. Performed By: #### L 100.0100, L3890.6102, L3890.6301 #### [facility] [address] [place], [address] Lymphocytes/100 WBC (Bld) 18.6 % Low 19-41 [facility] Comment on above: Performed By: #### L 100.0100, L3890.6102, L3890.6301 #### [facility] [address] [place], [address] MCH (RBC) [Entitic mass] 27.7 pg Normal 27.0-32.0 [facility] Comment on above: Performed By: #### L 100.0100, L3890.6102, L3890.6301 #### [facility] [address] [place], [address] MCHC (RBC) [Mass/Vol] 32.5 g/dL Normal 32-36 [facility] Comment on above: Performed By: #### L 100.0100, L3890.6102, L3890.6301 #### [facility] [address] [place], [address] MCV (RBC) [Entitic vol] 85.4 fL Normal 81-99 [facility] Comment on above: Performed By: #### L 100.0100, L3890.6102, L3890.6301 #### [facility] [address] [place], [address] Monocytes/100 WBC (Bld) 6.7 % Normal 0-10 [facility] Comment on above: Performed By: #### L 100.0100, L3890.6102, L3890.6301 #### [facility] [address] [place], [address] Neutrophils/100 WBC (Bld) 72.6 % High 47-70 [facility] Comment on above: Performed By: #### L 100.0100, L3890.6102, L3890.6301 #### [facility] [address] [place], [address] Nucleated RBC (Bld) [#/Vol] 0 10*3/uL Normal 0-5 [facility] Comment on above: Performed By: #### L 100.0100, L3890.6102, L3890.6301 #### [facility] [address] [place], [address] Platelet mean volume (Bld) [Entitic vol] 10.2 fL Normal 6.2-12.0 [facility] Comment on above: Performed By: #### L 100.0100, L3890.6102, L3890.6301 #### [facility] [address] [place], [address] Platelets (Bld) [#/Vol] 339 10*3/uL Normal 150-450 [facility] Comment on above: Performed By: #### L 100.0100, L3890.6102, L3890.6301 #### [facility] [address] [place], [address] RBC (Bld) [#/Vol] 4.04 10*6/uL Low 4.2-5.4 [facility] Comment on above: Performed By: #### L 100.0100, L3890.6102, L3890.6301 #### [facility] [address] [place], [address] RDW SD 41.3 fl Normal 35.1-43.9 [facility] Comment on above: Performed By: #### L 100.0100, L3890.6102, L3890.6301 #### [facility] [address] [place], [address] WBC (Bld) [#/Vol] 13.1 10*3/uL High 4.4-11.0 [facility] Comment on above: Performed By: #### L 100.0100, L3890.6102, L3890.6301 #### [facility] [address] [place], [address] Eosinophil percentageOrdered By: Rae Dolan on 06-13-2025 Eosinophils/100 WBC (Bld) 0.8 % 0-5 [facility] Erythrocyte distribution wid th ratioOrdered By: Rae Dolan on 06-13-2025 Erythrocyte distribution width (RBC) [Ratio] 13.2 % 11.6-14.6 [facility] Erythrocyte distribution wid th standard deviationOrdered By: Rae Dolan on 06-13-2025 Erythrocyte distribution width (RBC) [Ratio] 41.3 fl 35.1-43.9 [facility] Hematocrit Auto (Bld) [Volum e fraction]Ordered By: Rae Dolan on 06-13-2025 Hematocrit (Bld) [Volume fraction] 34.5 % Low 37-47 [facility] Hemoglobin measurementOrdere d By: Rae Dolan on 06-13-2025 Hemoglobin (Bld) [Mass/Vol] 11.2 g/dL Low 12.0-15.0 [facility] Hepatitis C Antibodyon 06-13 Hepatitis C Ab Non-Reactive Normal Nonreactive [facility] Comment on above: Result Comment: Reac tive: Presumptive evidence of antibodies to HCV. Follow CDC recommendations for supplemental testing. Non-Reactive: Antibodies to HCV were not detected; does not exclude the possibility of exposure to HCV Reactive Results are presumptive evidence of antibodies to HCV. Follow CDC recommendations for supplemental testing. Order confirmation testing: HCV Quant by PCR testing - HCVPCR #[id number] Non Reactive: < 0.8 Equivocal: >/= 0.8 to < 1.0 Reactive: >/= 1.0 The [facility] requires that a reactive/equivocal HCV antibody result be sent out for confirmation. HCV Quant by PCR testing. Performed By: #### L 100.0100, L3890.6102, L3890.6301 #### [facility] [address] [place], [place], [address] Immature granulocytes/100 WB C Auto (Bld)Ordered By: Rae Dolan on 06-13-2025 Immature granulocytes/100 WBC (Bld) 0.800 % 0.0-0.9 [facility] Comment on above: IG% - Immature Granu locytes (promyelocytes, myelocytes and metamyelocytes) > 1% indicates that a LEFT SHIFT is Present. L3890.6102on 06-13-2025 HEP B Surf Ag Non-Reactive Normal Nonreactive [facility] Comment on above: Result Comment: Reac tive: Presumptive evidence of HBV. Repeatedly reactive samples must be confirmed using a neutralization test ([employer] HBsAg Confirmatory Test) Non-Reactive: HBsAg not detected; does not exclude the possibility of exposure to HBV Performed By: #### L 100.0100, L3890.6102, L3890.6301 #### [facility] [address] [facility] [place], [address] Laboratory - Chemistry and C hemistry - challengeOrdered By: Susanna Garcia on 06-13-2025 Glucose Ql (U) Negative [facility] Laboratory - Microbiology an d Antimicrobial susceptibilityOrdered By: Rae Dolan on 06-13-2025 HBV surface Ag Ql (S) Non-Reactive Nonreactive [facility] Comment on above: Reactive: Presumptiv e evidence of HBV. Repeatedly reactive samples must be confirmed using a neutralization test ([employer] HBsAg Confirmatory Test)Non-Reactive: HBsAg not detected; does not exclude the possibility of exposure to HBV Laboratory - UrinalysisOrder ed By: Susanna Garcia on 06-13-2025 Protein Ql (U) Negative [facility] MCV (mean corpuscular volume ) determinationOrdered By: Rae Dolan on 06-13-2025 MCV (RBC) [Entitic vol] 85.4 fL 81-99 [facility] Mean corpuscular hemoglobin (MCH) determinationOrdered By: Rae Dolan on 06-13-2025 MCH (RBC) [Entitic mass] 27.7 pg 27.0-32.0 [facility] Mean corpuscular hemoglobin concentration (MCHC) determinationOrdered By: Rae Dolan on 06-13-2025 MCHC (RBC) [Mass/Vol] 32.5 g/dL 32-36 [facility] Mean platelet volume determi nationOrdered By: Rae Dolan on 06-13-2025 Platelet mean volume (Bld) [Entitic vol] 10.2 fL 6.2-12.0 [facility] Monocyte percentageOrdered B y: Rae Dolan on 06-13-2025 Monocytes/100 WBC (Bld) 6.7 % 0-10 [facility] Neutrophil percentageOrdered By: Rae Dolan on 06-13-2025 Neutrophils/100 WBC (Bld) 72.6 % High 47-70 [facility] Nucleated red blood cell per centageOrdered By: Rae Dolan on 06-13-2025 Nucleated RBC/100 WBC (Bld) [Ratio] 0 % 0-5 [facility] Encoding Clerk Office Visit Reporton 06-13-2025 Encoding Clerk Office Visit Report [facility] [address], [address] [place] [address] OFFICE VISIT Date of Service: 06/13/25 MR#: [id number] Acct: [id number] Name: SHERLY CAMEJO THIAGO Rep #: [id number] : 1995 Provider: Dr. Susanna heath MD Age/Sex: 30/F Location: [facility] Status: Signed Intake Vital Signs 04/03/25 08:46 05/08/25 11:16 06/13/25 15:10 06/13/25 15:13 Height 5 ft 2 in 5 ft 2 in 5 ft 2 in 5 ft 2 in Weight: 166 lb BMI 30.3 BP 119/77 Intake Visit Reasons: 16wk ob Tip Cutter Required: No Is patient in pain?: No Allergies amoxicillin Allergy (Intermediate, Verified 06/13/25 15:09) Hives cefaclor (From Ceclor) Allergy (Intermediate, Verified 06/13/25 15:09) Hives sulfamethoxazole (From Bactrim) Allergy (Intermediate, Verified 06/13/25 15:09) Hives trimethoprim (From Bactrim) Allergy (Intermediate, Verified 06/13/25 15:09) Hives Medications ???Medication ???Instructions ???Recorded ???Confirmed ???Type cholecalciferol (vitamin D3) 50 50 mcg PO DAILY 12/19/20 06/13/25 History mcg (2,000 unit) capsule iron 18 mg tablet 18 mg PO DAILY 12/19/20 06/13/25 H istory docosahexaenoic acid 200 mg mg PO 05/02/25 06/13/25 History capsule ( DHA) levothyroxine 25 mcg tablet 75 mcg PO DAILY 05/02/25 06/13/25 History (Synthroid) famotidine 20 mg tablet (Pepcid) 20 mg PO BID #60 tabs 06/13/2506/29 Rx Last Menstrual Period: 08/19/23 Zika: Zika virus [...] 0 current occupational status: employed 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 current occupational exposures/hazards: No pets and animals: Yes pets and animals: dog(s) history of recent travel: Yes ([place]: March 2025) out of state: Yes out of country: No sexually active: Yes Smoking Status: Never [...] physical activity do you participate in: none kp/yazidi: Rastafari seatbelt use: always do you feel safe at home: Yes 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 OB Visit KESHA Calculator Estimated Delivery Date Method Current WG Current Estimate 11/30/25 Conception 15w 5d Other Estimates 11/28/25 Ultrasound #1 16w 0d Expected Delivery Route/Plan Labor Preferences- CB/BF classes: [...] details 1 Initial Weight: Not Recorded Date -???-???-???-???-???- ???-???-???-???-???-? ??-???- EGA Weight BP Urine Prot -???-???-???-???-???- ???-???-???-???-???-? ??-???- Glucose FHR FuHt Pres Dilation -???-???-???-???-???- ???-???-???-???-???-? ??-???- Effaced St Visit Note 05/08/25 -???-???-???-???-???- ???-???-???-???-???-? ??-???- 10w 4d 157 lb 4 oz 122/81 -???-???-???-???-???- ???-???-???-???-???-? ??-???- 168 -???-???-???-???-???- ???-???-???-???-???-? ??-???- JV- CRL cons istent with the IVF implant day (5)is doing NIPT with Dr. zuri west (more content not included)... Normal [facility] Platelet countOrdered By: Bashir Dolan on 06-13-2025 Platelets (Bld) [#/Vol] 339 10*3/uL 150-450 [facility] RBC Auto (Bld) [#/Vol]Ordere d By: Rae Dolan on 06-13-2025 RBC (Bld) [#/Vol] 4.04 10*6/uL Low 4.2-5.4 [facility] White blood cell (WBC) count Ordered By: Rae Dolan on 06-13-2025 WBC (Bld) [#/Vol] 13.1 10*3/uL High 4.4-11.0 [facility] Chlamydia/GC SYLVIA aptimaon CHLAMY,NUC ACID Negative Normal Negative [facility] Comment on above: Performed By: #### L 7000.1800, M100.2200 #### [facility] [address] [place], [address] GC BY NUC ACID Negative Normal Negative [facility] Comment on above: Result Comment: Perf ormed at: =G - [facility] [place] [address] [place], [place] [id number] Oil Burner: Terese Rebolledo MD, Phone: [phone] Performed By: #### L 7000.1800, M100.2200 #### [facility] [address] [place], [place], [id number] Urine Cultureon 05-09-2025 URC Culture exhibits no growth. Normal [facility] Comment on above: Performed By: #### L 7000.1800, M100.2200 #### [facility] [address] [place], [place], [id number] Chlamydia trachomatis rRNA d etection by probe and target amplification methodOrdered By: Rae Dolan on 05-08-2025 C. trachomatis rRNA SYLVIA+probe Ql (Unsp spec) Negative Negative [facility] Neisseria gonorrhoeae nuclei c acid detection by amplified probe techniqueOrdered By: Rae Dolan on 05-08-2025 N. gonorrhoeae DNA SYLVIA+probe Ql (Unsp spec) Negative Negative [facility] Comment on above: Performed at: =G - [facility] [id number] [place], [place] [id number] Director: Terese Rebolledo MD, Phone: [phone] Encoding Clerk Office Visit Reporton 05-08-2025 Encoding Clerk Office Visit Report [facility] [address], [address] [place] [address] OFFICE VISIT Date of Service: 05/08/25 MR#: [id number] Acct: [id number] Name: SHERLY CAMEJO THIAGO Rep #: [id number] : 1995 Provider: Dr. Rae Sebastian DO Age/Sex: 29/F Location: [facility] Status: Signed Intake Vital Signs 04/03/25 08:46 05/02/25 10:09 05/08/25 11:16 Height 5 ft 2 in 5 ft 2 in 5 ft 2 in Weight: 157 lb 4 oz BMI 28.8 BP 122/81 H Intake Visit Reasons: *NEW* NOB IV Transfer 03/14, KESHA 12/02 Tip Cutter Required: No Is patient in pain?: No Allergies amoxicillin Allergy (Intermediate, Verified 05/08/25 11:16) Hives cefaclor (From Ceclor) Allergy (Intermediate, Verified 05/08/25 11:16) Hives sulfamethoxazole (From Bactrim) Allergy (Intermediate, Verified 05/08/25 11:16) Hives trimethoprim (From Bactrim) Allergy (Intermediate, Verified 05/08/25 11:16) Hives Medications ???Medication ???Instructions ???Recorded ???Confirmed ???Type cholecalciferol (vitamin D3) 50 50 mcg PO DAILY 12/19/20 05/08/25 History mcg (2,000 unit) capsule iron 18 mg tablet 18 mg PO DAILY 12/19/20 05/08/25 H istory docosahexaenoic acid 200 mg mg PO 05/02/25 05/08/25 History capsule ( DHA) levothyroxine 25 mcg tablet 75 mcg PO DAILY 05/02/25 05/08/25 History (Synthroid) Last Menstrual Period: 08/19/23 [...] 0 current occupational status: employed 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 current occupational exposures/hazards: No pets and animals: Yes pets and animals: dog(s) history of recent travel: Yes ([place]: March 2025) out of state: Yes out of country: No sexually active: Yes Smoking Status: Never [...] physical activity do you participate in: none kp/yazidi: Rastafari seatbelt use: always do you feel safe at home: Yes 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 ??-???- EGA Weight BP Urine Prot -???-???-???-???-???- ???-???-???-???-???-? ??-???- Glucose FHR FuHt Pres Dilation -???-???-???-???-???- ???-???-???-???-???-? ??-???- Effaced St Visit Note 05/08/25 -???-???-???-???-???- ???-???-???-???-???-? ??-???- 10w 4d 157 lb 4 oz 122/81 -???-???-???-???-???- ???-???-???-???-???-? ??-???- 168 -???-???-???-???-???- ???-???-???-???-???-? ??-???- JV- CRL cons istent with the IVF implant day (5)is doing NIPT wi (more content not included)... Normal [facility] Urine cultureOrdered By: Leatha Dolan on 05-08-2025 Bacteria identified Cx Nom (U) Culture exhibits no growth. [facility] Office Visit Reporton 2024 Office Visit Report [facility] [address] [place] [address] OFFICE VISIT Date of Service: 05/02/25 MR#: [id number] Acct: [id number] Patient: SHERLY CAMEJO THIAGO Rep #: [id number] : 1995 Provider: LUIS ANGEL lamb Age/Sex: 29/F Location: [facility] Status: Signed Intake Vital Signs 04/03/25 08:46 [...] past year?: No 05/02/25 1037 Date Sherice Nixon QUALITY ASSURANCE MONITOR [employer] QUALITY ASSURANCE MONITOR [employer]ASSIS-C Cosigner Signature: Date (if applicable) CC: Normal [facility] [id number] 04-03-2025 [facility] COMMENT Normal . [facility] Comment on above: Order Comment: [id number] ANTIBODY SCREEN LAV WB RF Result Comment: Test Ordered: [id number] Antibody Screen Antibody Screen Negative CB Reference Range: Negative Performed at: - [facility] [id number] Oil Burner: Demarcus Cox PhD, Phone: [phone] Performed By: #### B 882-1, L3410.9992 #### [facility] [address] [place], [place], [id number] Encoding Clerk Office Visit Reporton 04-03-2025 Encoding Clerk Office Visit Report [facility] [address], [address] [place] [address] OFFICE VISIT Date of Service: 04/03/25 MR#: [id number] Acct: [id number] Name: SHERLY CAMEJO Rep #: [id number] : 1995 Provider: Dr. Rae Sebastian DO Age/Sex: 29/F Location: [facility] Status: Signed with Addenda ADDENDUM by Dr. [...] spouse current occupational status: employed current occupation: [employer] history of recent travel: No sexually active: [...] children HPI Rhogam injection per JV Details: SHERLY CAMEJO is a 29 year old who presents for a rhogam injection only Office Procedures Injections Site of injection: right gluteal IM Medication Given: Yes Is this a patient provided medication?: No Office Meds RhoGAM Ultra-Filtered PLUS 1,500 unit (300 mcg) intramuscular syringe Performing Provider: Rae Manjarrez DO Performing Location: [facility] Administered by: Kerri Yap RN on 04/03/25 08:42 Dose Route Admin Location Dispensed Lot Number Expiration Date [facility] Man ufacturer 1,500 unit IM Right Glute 1 ea [id number] 03/07/27 46651-665-20 [facility] Coding Level of Care Code No Charge Diagnoses Rh negative state in antepartum period O26.899; Z67.91 Assessment and Plan Assessment and Plan (1) Rh negative state in antepartum period: Status: Acute Orders: Orders Rhogam Injection 04/03/25 O26.859 - Spotting complicating , unspecified trimester 04/10/25 1254 Date Rae Manjarrez DO Cosigner Signature: Date (if applicable) CC: Normal [facility] [id number] 03-31-2025 ABO and Rh group Nom (Bld) Blood group AB Rh(D) negative [facility] Comment on above: Performed By: #### B 882-1, [id number] #### [facility] [address] [place], [address] [place] PARATHYROID STUDYon 09-27 NM PARATHYROID STUDY ORIGINAL EXAMINATION: PARATHYROID PGLMRDTZPERD05/24/202 12:55 pm TECHNIQUE: 35 mCi of Tc [...] Date: 09/27/2024 2:34:17 PM Ordering Provider: ALLA [facility] US THYROIDon 05-24-2024 US THYROID ORIGINAL EXAMINATION: [...] 05/24/2024 11:51:04 AM Ordering Provider: ALLA YOUNGER [facility] ([place]) XR TOES GREAT 3 VIEWS [...] 05/23/2024 9:36:20 PM Ordering Provider: JOSIAH FREEMAN [facility] ([place]) Serum or plasma progesterone measurement (mass/volume)Ordered By: Nabila Vera on 01-28-2024 Progesterone [Mass/Vol] 22.37 ng/mL See Comment [facility] Comment on above: Progesterone Referen [...] 01-02-2024 Progesterone [Mass/Vol] 51.57 ng/mL See Comment [facility] Comment on above: Progesterone Referen [...] 10-10-2023 Progesterone [Mass/Vol] 11.09 ng/mL See Comment [facility] Comment on above: Progesterone Referen [...] report Cyto stain Doc (Cvx/Vag) Comment . [facility] Comment on above: The Pap smear is a s creening test designed to aid in thedetection of premalignant and malignant conditions of theuterine cervix. It is not a diagnostic procedure andshould not be used as the sole means of detecting cervicalcancer. Both false-positive and false-negative reports dooccur. Laboratory - CytologyOrdered By: Sherice Thomas on 09-08-2023 Jumpbasting Facing Baster Cyto stain Nom (Cvx/Vag) [ID] Comment . [facility] Comment on above: Lashell Wellington, Cytot echnologist (ASCP) Laboratory - Miscellaneous t estsOrdered By: Sherice Thomas on 09-08-2023 Service comment (Unsp spec) [Interp] Comment . [facility] Comment on above: This liquid based Th inPrep(R) pap test was screened withthe use of an image guided system. Service comment (Unsp spec) [Interp] . . [facility] No Panel InformationOrdered By: Sherice Thomas on 09-08-2023 Human Papillomavirus Screen Comment . [facility] Comment on above: The HPV DNA reflex c riteria were not met with this specimenresult therefore, no HPV testing was performed.Performed at: [facility] [id number] Director: Terese Rebolledo MD, Phone: [phone] Pathology report final diagnosis Narrative Comment . [facility] Comment on above: NEGATIVE FOR INTRAEP ITHELIAL LESION OR MALIGNANCY. HCG,Urine Qualon 11-14-2018 HCG.beta subunit ( test) Ql (U) Negative Normal Negative [facility] Comment on above: Result Comment: Preg jens is the most common reason for HCG in urine, although choriocarcinoma, hydatidiform mole, and certain nontropho- blastic malignancies also result in detectable urinary HCG levels. Sensitivity = 20mIU/mL. Performed By: #### U AMAC, HCGUR, UAMIC #### [address] [address] Urinalysis,Macroon 9 Appearance Nom (U) Clear Normal Clear [facility] Comment on above: Performed By: #### U AMAC, HCGUR, UAMIC #### [address] [address] [place] [address] Bilirubin,Ur Negative Normal Negative [facility] Comment on above: Performed By: #### U AMAC, HCGUR, UAMIC #### [address] [place] [address] Color Nom (U) Yellow Normal Lt. Yellow [facility] Comment on above: Performed By: #### U AMAC, HCGUR, UAMIC #### [address] [place] [address] Glucose Ql (U) NEG (Normal) Normal Negative [facility] Comment on above: Performed By: #### U AMAC, HCGUR, UAMIC #### [address] [address] [place] [address] Ketone,Urine Negative Normal Negative [facility] Comment on above: Performed By: #### U AMAC, HCGUR, UAMIC #### [address] [address] [place] [address] Nitrite Ql (U) Positive Normal Negative [facility] Comment on above: Performed By: #### U AMAC, HCGUR, UAMIC #### [address] [address] Occult Blood,Ur Negative Normal Negative [facility] Comment on above: Performed By: #### U AMAC, HCGUR, UAMIC #### [address] [address] pH (U) 7.0 Normal 5.0-8.0 [facility] Comment on above: Performed By: #### U AMAC, HCGUR, UAMIC #### [address] [address] Protein mass conc (U) Negative Normal Negative [facility] Comment on above: Performed By: #### U AMAC, HCGUR, UAMIC #### [address] [address] Specific [place],Urine 1.005 Normal 1.005-1.030 [facility] Comment on above: Performed By: #### U AMAC, HCGUR, UAMIC #### [address] [address] Urobilinogen Qn (U) Normal (0.2) Normal 0-1 [facility] Comment on above: Performed By: #### U AMAC, HCGUR, UAMIC #### [address] [address] WBC #/vol (Bld) Trace Normal Negative [facility] Comment on above: Performed By: #### U AMAC, HCGUR, UAMIC #### [address] [address] Urinalysis,Microscopicon Bacteria LM.HPF #/area (Urine sed) Few (1-5) Normal Negative [facility] Comment on above: Performed By: #### U AMAC, HCGUR, UAMIC #### [facility] [address] [place] [address] Epithelial cells LM.HPF #/area (Urine sed) 0 - 2 Normal 3-5 [facility] Comment on above: Performed By: #### U AMAC, HCGUR, UAMIC #### [facility] [address] [place] [address] RBC LM.HPF #/area (Urine sed) Negative Normal 0-2 [facility] Comment on above: Performed By: #### U AMAC, HCGUR, UAMIC #### [address] [address] WBC LM.HPF #/area (Urine sed) 3 - 5 Normal 0-5 [facility] Comment on above: Performed By: #### U AMAC, HCGUR, UAMIC #### [address] [address] Cult Urineon 07-02-2018 Cult Urine Test performed at [facility] ORGANISM: Klebsiella pneumoniae (ID: 1) 10,000-50,000 CFU/ml Normal [facility] Comment on above: Performed By: #### C _URI ####[address] [address] Urinalysis Routineon 018 Bacteria LM.HPF #/area (Urine sed) 2+ Abnormal None [facility] Comment on above: Performed By: #### U RIN2 ####[address] [address] Ep Cells Urine 1.7 /hpf Normal 0.0-5.0 [facility] Comment on above: Performed By: #### U RIN2 ####[address] [address] Hyaline Cast 0.8 /lpf Normal 0.0-1.0 [facility] Comment on above: Performed By: #### U RIN2 ####[facility] [place], [place] [address] RBC,Urine 4.8 /hpf Normal 0.0-5.0 [facility] Comment on above: Performed By: #### U RIN2 ####[facility] [place], [place] [address] WBC, Urine 14.4 /hpf High 0.0-5.0 [facility] Comment on above: Performed By: #### U RIN2 ####[address] [address] Appearance Nom (U) CLEAR Normal [facility] Comment on above: Performed By: #### U RIN2 ####[address] [address] Bilirubin Urine Negative Normal Negative [facility] Comment on above: Performed By: #### U RIN2 ####[address] [address] Color Nom (U) YELLOW Normal [facility] Comment on above: Performed By: #### U RIN2 ####[address] [address] Glucose Ql (U) Negative Normal Negative [facility] Comment on above: Performed By: #### U RIN2 ####[address] [address] Hemoglobin,Urine Negative Normal Negative [facility] Comment on above: Performed By: #### U RIN2 ####[address] [address] Ketone Urine Negative Normal Negative [facility] Comment on above: Performed By: #### U RIN2 ####[address] [address] Leukocytes Esterase MODERATE Abnormal Negative [facility] Comment on above: Performed By: #### U RIN2 ####[address] [address] Nitrites Urine Negative Normal Negative [facility] Comment on above: Performed By: #### U RIN2 ####[address], [place] [address] pH Test strip (U) 7.0 [pH] Normal 5.0-8.0 [facility] Comment on above: Performed By: #### U RIN2 ####[facility] [place], [place] [address] Protein Urine Negative Normal Negative [facility] Comment on above: Performed By: #### U RIN2 ####[facility] [place], [place] [address] Specific [place], Ur 1.010 Normal 1.005-1.030 [facility] Comment on above: Performed By: #### U RIN2 ####[facility] [place], [place] [address] Urobilinogen,Ur 0.2 EU/dL Normal 0.0-1.0 [facility] Comment on above: Performed By: #### U RIN2 ####[address] [address] Vital Signs Date Time Vital Sign Value Performing Clinician Facility 07-11-2025 15:35-0400 Body height 157.48 cm EMILY HEREDIA Work Phone: [facility] 07-11-2025 15:35-0400 Body mass index (BMI) [Ratio] 31.7 kg/m2 EMILY HEREDIA Work Phone: [facility] 07-11-2025 15:35-0400 Body weight 78.66 kg EMILY HEREDIA Work Phone: [facility] 07-11-2025 15:35-0400 Diastolic blood pressure 76 mm[Hg] EMILY HEREDIA Work Phone: [facility] 07-11-2025 15:35-0400 Systolic blood pressure 132 mm[Hg] EMILY HEREDIA Work Phone: [facility] 06-16-2025 14:46-0400 Body height 157.48 cm EMILY HEREDIA Work Phone: [facility] 06-16-2025 14:46-0400 Body mass index (BMI) [Ratio] 30.6 kg/m2 EMILY HEREDIA Work Phone: [facility] 06-16-2025 14:46-0400 Body weight 75.86 kg EMILY HEREDIA Work Phone: [facility] 06-16-2025 14:46-0400 Diastolic blood pressure 76 mm[Hg] EMILY HEREDIA Work Phone: [facility] 06-16-2025 14:46-0400 Systolic blood pressure 126 mm[Hg] EMILY HEREDIA Work Phone: [facility] 06-13-2025 15:13-0400 Body height 157.48 cm EMILY HEREDIA Work Phone: [facility] 06-13-2025 15:10-0400 Body mass index (BMI) [Ratio] 30.3 kg/m2 EMILY HEREDIA Work Phone: [facility] 06-13-2025 15:10-0400 Body weight 75.29 kg EMILY HEREDIA Work Phone: [facility] 06-13-2025 15:10-0400 Diastolic blood pressure 77 mm[Hg] EMILY HEREDIA Work Phone: [facility] 06-13-2025 15:10-0400 Systolic blood pressure 119 mm[Hg] EMILY HEREDIA Work Phone: [facility] 05-08-2025 11:16-0400 Body height 157.48 cm EMILY HEREDIA Work Phone: [facility] 05-08-2025 11:16-0400 Body mass index (BMI) [Ratio] 28.8 kg/m2 EMILY HEREDIA Work Phone: [facility] 05-08-2025 11:16-0400 Body weight 71.32 kg EMILY HEREDIA Work Phone: [facility] 05-08-2025 11:16-0400 Diastolic blood pressure 81 mm[Hg] EMILY HEREDIA Work Phone: [facility] 05-08-2025 11:16-0400 Systolic blood pressure 122 mm[Hg] EMILY HEREDIA Work Phone: [facility] 05-02-2025 10:09-0400 Body mass index (BMI) [Ratio] 28.3 kg/m2 EMILY HEREDIA Work Phone: [facility] 05-02-2025 10:09-0400 Body weight 70.42 kg EMILY HEREDIA Work Phone: [facility] 05-02-2025 10:09-0400 Diastolic blood pressure 78 mm[Hg] EMILY YAN Work Phone: [facility] 05-02-2025 10:09-0400 Systolic blood pressure 118 mm[Hg] EMILY HEREDIA Work Phone: [facility] 04-03-2025 08:46-0400 Body height 157.48 cm EMILY HEREDIA Work Phone: [facility] 05-23-2024 20:19-0400 Diastolic Blood Pressure Non-Invasive 80 mm[Hg] JOSIAH FREEMAN MD [facility] 05-23-2024 20:19-0400 Heart rate 84 /min JOSIAH FREEMAN MD [facility] 05-23-2024 20:19-0400 Respiratory rate 16 /min JOSIAH FREEMAN MD [facility] 05-23-2024 20:19-0400 Systolic Blood Pressure Non-Invasive 128 mm[Hg] JOSIAH FREEMAN MD [facility] 05-23-2024 18:55-0400 Blood Pressure Cuff Size JOSIAH FREEMAN MD [facility] 05-23-2024 18:55-0400 Blood Pressure Location JOSIAH FREEMAN MD [facility] 05-23-2024 18:55-0400 Blood Pressure Method JOSIAH FREEMAN MD [facility] 05-23-2024 18:55-0400 Body temperature 97.16 [degF] JOSIAH FREEMAN MD [facility] 05-23-2024 18:55-0400 Body weight 63.6 kg JOSIAH FREEMAN MD [facility] 05-23-2024 18:55-0400 Diastolic Blood Pressure Non-Invasive 92 mm[Hg] JOSIAH FREEMAN MD [facility] 05-23-2024 18:55-0400 Heart rate 81 /min JOSIAH FREEMAN MD [facility] 05-23-2024 18:55-0400 Respiratory rate 16 /min JOSIAH FREEMAN MD [facility] 05-23-2024 18:55-0400 Systolic Blood Pressure Non-Invasive 138 mm[Hg] JOSIAH FREEMAN MD [facility] 09-28-2023 09:17-0500 Body height 157.48 cm QUALITY ASSURANCE MONITOR CHASSIS-C Sherice Nixon QUALITY ASSURANCE MONITOR [employer]ASS[employer] Work Phone: [facility] 09-28-2023 09:17-0500 Body mass index (BMI) [Ratio] 26.2 kg/m2 QUALITY ASSURANCE MONITOR [employer]ASS[employer]-C Sherice Nixon QUALITY ASSURANCE MONITOR [employer]ASS[employer] Work Phone: [facility] 09-28-2023 09:17-0500 Body temperature 97.1 [degF] QUALITY ASSURANCE MONITOR CHASSIS-C Sherice Nixon QUALITY ASSURANCE MONITOR [employer]ASS[employer] Work Phone: [facility] 09-28-2023 09:17-0500 Body weight 64.86 kg QUALITY ASSURANCE MONITOR CHASSIS-C Sherice Nixon QUALITY ASSURANCE MONITOR [employer]ASS[employer] Work Phone: [facility] 09-28-2023 09:17-0500 Diastolic blood pressure 90 mm[Hg] QUALITY ASSURANCE MONITOR CHASSIS-C Sherice Nixon QUALITY ASSURANCE MONITOR [employer]ASSIS Work Phone: [facility] 09-28-2023 09:17-0500 Heart rate 83 /min QUALITY ASSURANCE MONITOR CHASSIS-C Sherice William QUALITY ASSURANCE MONITOR [employer]ASS[employer] Work Phone: [facility] 09-28-2023 09:17-0500 Respiratory rate 16 /min QUALITY ASSURANCE MONITOR [employer]ASS[employer]-C Sherice Nixon QUALITY ASSURANCE MONITOR [employer]ASS[employer] Work Phone: [facility] 09-28-2023 09:17-0500 SaO2% (BldA) [Mass fraction] 100 % QUALITY ASSURANCE MONITOR [employer]ASS[employer]-C Sherice William QUALITY ASSURANCE MONITOR [employer]ASS[employer] Work Phone: [facility] 09-28-2023 09:17-0500 Systolic blood pressure 119 mm[Hg] QUALITY ASSURANCE MONITOR CHASSIS-C Sherice Nixon QUALITY ASSURANCE MONITOR [employer]ASSIS Work Phone: [facility] 09-08-2023 13:49-0500 Body height 157.48 cm QUALITY ASSURANCE MONITOR CHASSIS-C Sherice Nixon QUALITY ASSURANCE MONITOR [employer]ASS[employer] Work Phone: [facility] 09-08-2023 13:42-0500 Body mass index (BMI) [Ratio] 27.1 kg/m2 QUALITY ASSURANCE MONITOR [employer]ASS[employer]-C Sherice Nixon QUALITY ASSURANCE MONITOR [employer]ASS[employer] Work Phone: [facility] 09-08-2023 13:42-0500 Body weight 67.13 kg QUALITY ASSURANCE MONITOR CHASSIS-C Sherice Nixon QUALITY ASSURANCE MONITOR [employer] Work Phone: [facility] 09-08-2023 13:42-0500 Diastolic blood pressure 78 mm[Hg] QUALITY ASSURANCE MONITOR CHASSIS-C Sherice Nixon QUALITY ASSURANCE MONITOR [employer] Work Phone: [facility] 09-08-2023 13:42-0500 Systolic blood pressure 104 mm[Hg] QUALITY ASSURANCE MONITOR CHASSIS-C Sherice Nixon QUALITY ASSURANCE MONITOR [employer]ASS[employer] Work Phone: [facility] Encounters Encounter Date Encounter Type Care Provider Facility Start: 08-08-2025 End: 08-08-2025 ambulatory Rae Manjarrez Facility:[facility] Start: 08-01-2025 End: 08-01-2025 ambulatory CARRIE CROWELL [facility] Start: 07-18-2025 End: 07-18-2025 ambulatory RAE BECERRA [facility] Start: 07-11-2025 End: 07-11-2025 Patient encounter procedure Sherice PLASENCIA [facility] Work Phone: Start: 07-11-2025 End: 07-11-2025 ambulatory EMILY HEREDIA Work Phone: -[facility] Start: 07-11-2025 End: 07-11-2025 ambulatory Susanna Garcia Facility:[facility] Start: 07-04-2025 End: 07-04-2025 ambulatory EMILY HEREDIA [facility] Start: 06-16-2025 End: 06-16-[address] Susanna Garcia MD -[facility] Work Phone: Start: 06-16-2025 End: 06-16-2025 ambulatory EMILY HEREDIA Work Phone: -[facility] Start: 06-16-2025 End: 06-16-2025 ambulatory Susanna Garcia Facility:[facility] Start: 06-13-2025 End: 06-13-[address] Susanna Garcia MD -[facility] Work Phone: Start: 06-13-2025 End: 06-13-2025 ambulatory EMILY YAN Work Phone: -[facility] Start: 06-13-2025 End: 06-13-2025 ambulatory Susanna Garcia Facility:[facility] Start: 05-08-2025 End: 05-08-2025 ambulatory EMILY YAN Work Phone: -Laboratory Specimen Start: 05-08-2025 End: 05-08-[address] Rae Manjarrez DO -[facility] Specimen Work Phone: Start: 05-08-2025 End: 05-08-[address] Rae Manjarrez DO -[facility] Work Phone: Start: 05-08-2025 End: 05-08-2025 ambulatory EMILY HEREDIA Work Phone: -[facility] Start: 05-08-2025 End: 05-08-2025 ambulatory Rae Manjarrez Facility:[facility] Start: 05-02-2025 End: 05-02-2025 Patient encounter procedure Sherice PLASENCIA -[facility] Work Phone: Start: 05-02-2025 End: 05-02-2025 ambulatory EMILY HEREDIA Work Phone: -[facility] Start: 04-03-2025 End: 04-03-[address] Rae Manjarrez DO -[facility] Work Phone: Start: 04-03-2025 End: 04-03-2025 ambulatory EMILY HEREDIA Work Phone: -[facility] Start: 03-31-2025 End: 03-31-2025 ambulatory EMILY HEREDIA Work Phone: -Laboratory Start: 03-31-2025 End: 03-31-[address] Raj Keating DO -Laboratory Work Phone: Start: 03-31-2025 End: 03-31-2025 ambulatory AL1 FISTEK Facility:[facility] Start: 09-27-2024 End: 09-27-[address] EMILY HEREDIA DO Facility:A Start: 09-27-2024 End: 09-27-2024 Patient encounter procedure ALLA YOUNGER INSURANCE LAW SPECIALIST-QA ARCHITECT [facility] Start: 05-23-2024 End: 05-23-2024 Emergency department patient visit JOSIAH FREEMAN MD [facility] Start: 05-23-2024 End: 05-23-2024 ambulatory ALLA YOUNGER INSURANCE LAW SPECIALIST-QA ARCHITECT Facility:B Start: 05-23-2024 End: 05-23-2024 Patient encounter procedure ALLA YOUNGER INSURANCE LAW SPECIALIST-QA ARCHITECT [facility] Start: 01-28-2024 End: 01-28-2024 ambulatory [facility] Work Phone: Start: 01-28-2024 End: 01-28-2024 Patient encounter procedure [facility]-Laboratory Work Phone: Start: 01-02-2024 End: 01-02-2024 ambulatory [facility] Work Phone: Start: 01-02-2024 End: 01-02-2024 Patient encounter procedure [facility]-Laboratory Work Phone: Start: 10-10-2023 End: 10-10-2023 Patient encounter procedure [facility] Work Phone: Start: 09-28-2023 End: 09-28-2023 Emergency department patient visit QUALITY ASSURANCE MONITOR CHASSIS-C Sherice William QUALITY ASSURANCE MONITOR [employer]ASSIS Work Phone: [facility]-Emergency Department Work Phone: Start: 09-08-2023 End: 09-08-2023 ambulatory QUALITY ASSURANCE MONITOR CHASSIS-C Sherice William QUALITY ASSURANCE MONITOR [employer]ASS[employer] Work Phone: [facility] Work Phone: Start: 09-08-2023 End: 09-08-2023 Patient encounter procedure QUALITY ASSURANCE MONITOR CHASSIS-C Sherice William QUALITY ASSURANCE MONITOR [employer] Work Phone: [facility]-Laboratory, Specimen Work Phone: Start: 09-08-2023 End: 09-08-2023 Patient encounter procedure QUALITY ASSURANCE MONITOR CHASSIS-C Sherice William QUALITY ASSURANCE MONITOR CHASSIS Work Phone: [facility] Work Phone: Start: 03-26-2022 Non-patient / Non-visit EMILY [facility] Start: 03-26-2022 End: 03-26-2022 Patient encounter procedure EMILY [facility] Start: 04-11-2021 End: 04-11-2021 ambulatory Rae Ely [facility] Comment on above: Population Health Na vigation Outreach (OFFBOARDING- Needs PCP Updated) Start: 11-14-2018 Emergency department patient visit UNKNOWN PROVIDER [facility] Start: 07-02-2018 End: 07-03-2018 Patient encounter JAQUELINE JaceREZAKasandra KAYLA Facility:[facility] Start: 07-02-2018 End: 07-02-2018 Patient encounter JAQUELINE OSORIO) KAYLA Facility:[facility] Procedures Date Procedure Procedure Detail Performing Clinician Start: 07-11-[address] Cuba Manjarrez DO Work Phone: Comment on above: Test Ordered: [id number] TSH Receptor Antibody (TBII)TSH Receptor Antibody (TBII) <0.3 U/L ES Reference Range: .Reference Range:Antibody Titer:<1.0 U/L = Negative1.1 - 1.5 U/L = Equivocal>1.5 U/L = PositivePerformed at: ES - [facility] [address] [id number] Director: Tomasa Whitehead MD, Phone: [phone] at: - [facility] [address] [id number] Director: Demarcus Cox PhD, Phone: [phone] Start: 07-11-[address] Rae Manjarrez DO Work Phone: Comment on above: Antibody Result: Int erpretationNon-Reactive: Non- ImmuneReactive: ImmuneThe following results were obtained with the [employer] Rubella IgG assay. Results from assays of other manufacturers cannot be used interchangeably. Start: 07-11-2025 Serologic test for syphilis Dr. Rae Manjarrez DO Work Phone: Start: 06-16-2025 Urine culture EMILY STANLEY Work Phone: Start: 06-13-2025 Hepatitis C antibody measurement EMILY HEREDIA Work Phone: Comment on above: Reactive: Presumptiv e evidence of antibodies to HCV. Follow CDC recommendations for supplemental testing.Non-Reactive: Antibodies to HCV were not detected; does not exclude the possibility of exposure to HCVReactive Results are presumptive evidence of antibodies to HCV. Follow CDC recommendations for supplemental testing.Order confirmation testing: HCV Quant by PCR testing - HCVPCR #[id number] Non Reactive: < 0.8 Equivocal: >/= 0.8 to < 1.0 Reactive: >/= 1.0The CDC requires that a reactive/equivocal HCV antibody result be sent out for confirmation. HCV Quant by PCR testing. Start: 05-08-2025 Urine culture EMILY STANLEY Work Phone: Start: 03-31-2025 Procedure EMILY MARIO Work Phone: Comment on above: Test Ordered: [id number] Antibody ScreenAntibody Screen Negative CB Reference Range: NegativePerformed at: - [facility] [id number] Director: Demarcus Cox PhD, Phone: [phone] Start: 03-26-2022 Salpingafshan HEREDIA Start: 07-02-2018 Adult depression scr eening assessment Rae Ely Plan of Treatment Date Care Activity Detail Author Start: 06-16-2025 [facility] Start: 06-16-2025 Bacteria identified in Urine by Culture Urine Culture [facility] Start: 06-13-2025 CBC W Auto Differential panel - Blood [facility] Start: 06-13-2025 Hepatitis C antibody measurement [facility] Start: 06-13-2025 [facility] Start: 03-31-2025 Procedure [facility] Start: 09-28-2023 [facility] Start: 2021 Influenza vaccination INFLUENZA (#1) [facility] Start: 07-02-2019 Adult depression screening assessment DEPRESSION SCREENING [facility] Start: 07-02-2019 ANNUAL PCP TEAM CHRONIC DISEASE VISIT ANNUAL PCP TEAM CHRONIC DISEASE VISIT [facility] Start: 2015 PAP TESTING PAP TESTING [facility] Start: 2013 Urine microalbumin profile DTAP,TDAP,TD (1 - Tdap) [facility] Start: 2012 HEPATITIS C SCREENING HEPATITIS C SCREENING [facility] Start: 2012 HIV SCREENING HIV SCREENING [facility] Start: 2012 SPIROMETRY SPIROMETRY [facility] Start: 2006 COVID-19 VACCINE (1) COVID-19 VACCINE (1) [facility] Start: 2005 HPV VACCINE (1 - 2-dose series) HPV VACCINE (1 - 2-dose series) [facility] CBC W Auto Different ial panel - Blood [facility] Chlamydia deoxyribon ucleic acid detection [facility] Erythrocyte mean cor puscular volume determination [facility] Hematocrit [Volume F raction] of Blood [facility] Hemoglobin [Mass/vol ume] in Blood [facility] Hepatitis B virus deleon rface Ag [Presence] in Serum [facility] Hepatitis C antibody measurement [facility] Leukocytes [#/volume ] in Blood [facility] Mean corpuscular hem oglobin concentration determination [facility] Mean corpuscular hem oglobin determination [facility] Neutrophil count [facility] Neutrophil percent differential count [facility] Patient Education ED Skin Tear ( Skin Avulsion) [facility] Work Phone: Patient referral [facility] Work Phone: Platelets [#/volume] in Blood [facility] Procedure [facility] Procedure [facility] Progesterone [Mass/v olume] in Serum or Plasma [facility] Red blood cell count [facility] Red cell distributio n width determination [facility] Rubella IgG measurement [facility] Rubella IgG measurement [facility] Serologic test for syphilis [facility] Serologic test for syphilis [facility] T4 free measurement [facility] Thyroid stimulating hormone measurement [facility] Urine culture [facility] Immunizations Immunization Date Immunization Notes Care Provider Fa prem 09-28-2023 tetanus toxoid, redu olga diphtheria toxoid, and acellular pertussis vaccine, adsorbed [employer]AL[employer] ASSURANCE MONITOR CHASSIS-C Sherice Thomas NP Work Phone: [facility] Payers Date Payer Category Payer Self-pay [id number] 2024 Unknown 2024 Unknown [id number] 2024 Unknown [id number] 1994 Unknown [id number] 2.16.8 40.1.149497.3.579.2.668 1994 Unknown [id number] 2.16.8 40.1.043552.3.579.2.627 1994 Unknown [id number] 2.16.8 40.1.677608.3.579.2.627 1994 Unknown [id number] 2.16.8 40.1.120659.3.579.2.627 1994 Unknown [id number] 2.16. 840.1.865470.3.579.2.479 1994 Unknown [id number] 2.16. 840.1.567311.3.579.2.479 1994 Unknown [id number] 2.16. 840.1.227507.3.579.2.479 1994 Unknown [id number] 2.16. 840.1.959394.3.579.2.479 Unknown [id number] Unknown [id number] Unknown [id number] 2.16.8 40.1.403943.3.579.2.462 Unknown [id number] 2.16.8 40.1.703573.3.579.2.462 Unknown [id number] 2.16.8 40.1.772278.3.579.2.462 Unknown [id number] 2.16.8 40.1.389774.3.579.2.462 Unknown [id number] 2.16.8 40.1.735772.3.579.2.462 Unknown [id number] 2.16.8 40.1.886608.3.579.2.462 Unknown [id number] 2.16.8 40.1.633948.3.579.2.462 Unknown [id number] 2.16.8 40.1.447329.3.579.2.462 Unknown [id number] 2.16.8 40.1.994825.3.579.2.462 Unknown [id number] 2.16.8 40.1.011614.3.579.2.462 Unknown [id number] 2.16.8 40.1.302911.3.579.2.462 Unknown [id number] 2.16.8 40.1.543649.3.579.2.462 Social History Date Type Detail Facility Start: 07-02-2018 End: 06-16-2025 Tobacco smoking status IDIS Never smoker [facility] Start: 07-02-2018 Tobacco use and exposure Never used [facility] Start: 07-02-2018 Alcohol intake Current drinke r of alcohol (finding) [facility] Start: 07-02-2018 Alcohol Comment weekly [facility] Start: 1995 Sex Assigned At Not on file [facility] Start: 12-19-2020 End: 09-28-2023 Tobacco smoking status [facility] Unknown if ever smoked [facility] Start: 1995 Sex Assigned At Female [facility] Tobacco smoking status [facility] Start: 04-04-2020 Sex Female (finding) [facility] Sex Female [facility] Functional Status Date Assessment Result Facility 05-23-2024 Functional Status Independent [facility] 05-23-2024 Functional Status Standard Safet y ID band on, Allergy Band on, Call device within reach, Bed in low position, Wheels locked, Phone within reach, personal items within reach, Visitor at bedside, Safety level maintained [facility] Mental Status Date Assessment Result Facility 05-23-2024 Mental Status Orientation Oriented x 4 [facility] 05-23-2024 Mental Status [facility] Clinical Notes 04-11-2021 to 08-01-2025 Note Date & Type Note Facility 08-01-2025 Note Assessment Sherly Camejo is a 30 y.o. female seen in consultation for echocardiogram at the request of Dr. Loreta Shah for suboptimal cardiac viewed. Evaluation today demonstrated a normal echocardiogram. I reviewed the normal cardiac anatomy, and explained that there is no evidence of significant cardiac disease in the fetus. I explained the limitations of echocardiography in general, including our inability to rule out mild valve abnormalities, smaller VSDs, and persistent patency of the ductus arteriosus or the interatrial communication after . Plan Given the normal findings today, we have not made a follow up appointment for Mrs. Camejo in the [facility]. However, should any new concerns arise about the baby's heart either before or after delivery, we would be more than happy to reevaluate the baby at that time. Subjective Chief Complaint: Abnormal Ultrasound Finding Sherly Camejo is a 30 year old 1 para 0 woman currently at 22 5/7 weeks gestation seen in evaluation for echocardiogram for suboptimal cardiac views. The is a product of in vitro fertilization. There is no family history of congenital heart disease. Lab Results, Procedures, & Imaging echocardiogram: SUMMARY: 1. Technically difficult study due to position and activity. 2. Normal echocardiogram. 3. This study is limited in evaluating minor valve abnormalities, septal defects, partial anomalous pulmonary venous connection, and aortic arch abnormalities. 4. The above findings, including the limitations, were discussed with the patient. REASON FOR EXAM: Suboptimal cardiac views of the heart. : : - Maternal age: 30yr. - : 1. - Parity: 0. - Estimated delivery date: 11/30/2025. - Gestational age: 22 [id number]. STUDY AND PROCEDURE DATA: The patient is . Procedure Description: New ([id number]) . Study status: Routine. Location: lab. Procedure: Transabdominal echocardiogram was performed for congenital heart disease evaluation. Patient status: Outpatient. FINDINGS: DESCRIPTION One fetus is present. Normal three vessel view. The rhythm is sinus rhythm, with a heart rate of 148bpm. The position is vertex. Normal Doppler pattern of the ductus venosus, umbilical artery, and vein. Three vessel cord. ANATOMIC RELATIONSHIPS - Normal viceral situs. Left sided stomach. Left sided cardiac apex (levocardia). Normally related great vessels. VEINS AND ATRIA Atrial septum - There is a patent foramen ovale. There is a [id number] shunt. Left atrium: - The atrium is normal in size. Right atrium: - The atrium is normal in size. Systemic veins - Inferior vena cava and superior vena cava seen entering normally into the right atrium. Pulmonary veins - There are at least 2 out of 4 pulmonary veins seen entering normally into the left atrium, with normal Doppler pattern. A-V CANAL Tricuspid valve - There is no regurgitation. - There is normal biphasic inflow spectral Doppler. Mitral valve - There is no regurgitation. - There is normal biphasic inflow spectral Doppler. VENTRICLES Right ventricle - The cavity size is normal. Wall thickness is normal. Systolic function is qualitatively normal. Ventricular septum - There is no evidence of a ventricular septal defect. Left ventricle - The cavity size is normal. Wall thickness is normal. Systolic function is quantitatively normal. The fractional shortening (MM) is 37%. CONOTRUNCUS Aortic valve - There is no stenosis. There is no insuffiicency. Pulmonic valve - There is no stenosis. There is no insufficiency. GREAT ARTERIES Aorta and systemic arteries: - Left aortic arch and normal branching pattern is demonstrated. Normal ductal arch seen. Normally related great arteries. Pulmonary arteries - The proximal branch pulmonary arteries are normal. - Main pulmonary artery: The artery is of normal size. Systemic-pulmonary shunts - Patent ductus arteriosus. Normal pulsed wave Doppler pattern. PERICARDIUM - There is no significant pericardial effusion. [facility] 07-11-2025 Progress note [facility] 07-11-2025 Progress note Note Date/Time July 11, 2025 3:51pm [facility] [address], [address] [place] [address] OFFICE VISIT Date of Service: 07/11/25 MR#: [id number] Acct: [id number] Name: CAMEJOSHERLY THIAGO Rep #: [id number] : 1995 Provider: LUIS ANGEL Thomas Age/Sex: 30/F Location: [facility] Status: Signed Intake Vital Signs 05/08/25 11:16 06/16/25 14:46 07/11/25 15:35 Height 5 ft 2 in 5 ft 2 in 5 ft 2 in Weight: 173 lb 7 oz BMI 31.7 BP 132/76 H Intake Visit Reasons: 20wk ob *IVF Tip Cutter Required: No Is patient in pain?: No Allergies amoxicillin Allergy (Intermediate, Verified 07/11/25 15:35) Hives cefaclor (From Ceclor) Allergy (Intermediate, Verified 07/11/25 15:35) Hives sulfamethoxazole (From Bactrim) Allergy (Intermediate, Verified 07/11/25 15:35) Hives trimethoprim (From Bactrim) Allergy (Intermediate, Verified 07/11/25 15:35) Hives Medications ?Medication ?Instructions ?Recorded ?Confirmed ?Type cholecalciferol (vitamin D3) 50 50 mcg PO DAILY 07/11/25 History mcg (2,000 unit) capsule iron 18 mg tablet 18 mg PO DAILY 12/19/2004/28 History docosahexaenoic acid 200 mg mg PO 05/02/25 07/11/25 Hi story capsule ( DHA) levothyroxine 25 mcg tablet 75 mcg PO DAILY 05/02/25 1 History (Synthroid) famotidine 20 mg tablet (Pepcid) 20 mg PO BID #60 tabs 06/13/25 07/11/25 Rx Last Menstrual Period: 08/19/23 Zika: Zika virus [...] 0 current occupational status: employed 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 OB Visit KESHA Calculator Estimated Delivery Date Method Current WG Current Estimate 11/30/25 Conception 19w 5d Other Estimates 11/28/25 Ultrasound #1 20w 0d Expected Delivery Route/Plan Labor Preferences- CB/BF classes: [...] 10w 4d 157 lb 4 oz 122/81 -?-?-?--?-?-?-?-?-?-?-?-?- 168 -?-?-?-?-?-?-?-?-?-?-?-?- JV- CRL consiste nt with the IVF implant day (5)is doing NIPT with Dr. keating so will see if he does other labs before ordering them here. 06/13/25 -?-?-?-?-?-?-?-?-?-?-?-?- 15w 5d 166 lb 119/77 Negative -?-?-?-?-?-?-?-?-?-?-?-?- Negative 150 -?--?-?-?-?-?-?-?-?-?-?-?- SM- no vb crampi ng 06/16/25 -?-?-?-?-?-?-?-?-?-?-?-?- 16w 1d 167 lb 4 oz 126/76 -?-?-?-?-?-?-?-?-?-?-?-?- 160 -?-?-?-?-?-?-?-?-?-?-?-?- SM- co small vb n oabnormalities seen 07/11/25 -?-?-?-?-?-?-?-?-?-?-?-?- 19w 5d 173 lb 7 oz 132/76 Nega tive -?-?-?-?-?-?-?--?-?-?-?-?- Negative 153 -?-?-?-?-?-?-?-?-?-?-?-?- MH-No VB almost 2 weeks. Hx of placenta previa. Has follow up US w/MFM. Will complete labs today ACOG First Trimester First Trimester: Desire for [...] and no additional complaints, except as documented GI Denies abdominal pain, Denies nausea and Denies vomiting Exam Const General: cooperative Nutritional Appearance: well nourished GI Palpation: soft, nontender and other (gravid) Results POC Urinalysis 2 Dip (Clinic) Office Urine Glucose Negative Last Edit by Taylor Gonzalez on 07/11/25 15 :42 Office Urine Protein Negative Last Edit by Taylor Gonzalez on 07/11/25 15 :42 Coding Level of Care Code OB Routine Diagnoses Supervision of high risk in second trimester O09.92 Trimester: second trimester 19 weeks gestation of Z3A.19 Weeks of gestation: 19 weeks Placenta previa in second trimester O44.02 Trimester: second trimester Conceived by in vitro fertilization Z78.9 Rh negative state in antepartum period O26.899; 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 E03.9 Hypothyroidism type: acquired Assessment and Plan Assessment and Plan (1) Supervision of high-risk : Status: Acute Qualifiers: Trimester: second trimester Qualified Code(s): O09.92 - Supervision of high risk , unspecified, second trimester Comment: , KESHA 11/30/25, : Michael (2) : Status: Acute Qualifiers: Weeks of gestation: 19 weeks Qualified Code(s): Z3A.19 - 19 weeks gestation of Comment: Discussed genetic/carrier testing - Normal genetics/Carrier negative per previous records (3) Placenta previa: Status: Acute Qualifiers: Trimester: second trimester Qualified Code(s): O44.02 - Complete placenta previa NOS or without hemorrhage, second trimester Comment: POSSIBLE VASA PREVIA-MFM f/u scheduled (4) Conceived by in vitro fertilization: Status: Acute Comment: Transfer date 03/14 - 5day embryo; echo 22-24w (5) Rh negative state in antepartum period: Status: Acute Comment: AB-Rhogam given 04/03/25 (6) Ramon's disease: Status: Acute Comment: Thyroid labs ordered w/NOB (7) Hypothyroidism: Status: Acute Qualifiers: Hypothyroidism type: acquired Qualified Code(s): E03.9 - Hypothyroidism, unspecified Comment: Synthroid; Thyroid labs ordered w/NOB Orders: Orders POC Urinalysis 2 Dip (Clinic) Today Plan problem list reviewed and updated for most current plan of care and appropriate orders placed. Relevant counseling for the gestational age appropriate provided and ACOG education checklist updated. Continue routine care and follow up. 07/11/25 8308 <Electronically signed by Sherice west NP [employer]ALITY ASSURANCE MONITOR CHASSIS-C> Date _ Sherice ALBAC Cosigner Signature: Date (if applicable) CC: ~ [place] [facility] Work Phone: 1([phone]) 668-861409-09-2025 Progress [facility] [address] [place] [address], [address] [place] [address] OFFICE VISIT Date of Service: 06/13/25 MR#: [id number] Acct: [id number] Name: SHERLY CAMEJO Rep #: [id number] : 1995 Provider: Dr. Ayad Garcia MD Age/Sex: 30/F Location: [facility] Status: Signed Intake Vital Signs 04/03/25 08:46 05/08/25 11:16 06/13/25 15:10 06/13/25 15:13 Height 5 ft 2 in 5 ft 2 in 5 ft 2 in 5 ft 2 in Weight: 166 lb BMI 30.3 BP 119/77 Intake Visit Reasons: 16wk ob Tip Cutter Required: No Is patient in pain?: No Allergies amoxicillin Allergy (Intermediate, Verified 06/13/25 15:09) Hives cefaclor (From Ceclor) Allergy (Intermediate, Verified 06/13/25 15:09) Hives sulfamethoxazole (From Bactrim) Allergy (Intermediate, Verified 06/13/25 15:09) Hives trimethoprim (From Bactrim) Allergy (Intermediate, Verified 06/13/25 15:09) Hives Medications ?Medication ?Instructions ?Recorded ?Confirmed ?Type cholecalciferol (vitamin D3) 50 50 mcg PO DAILY 06/13/25 History mcg (2,000 unit) capsule iron 18 mg tablet 18 mg PO DAILY 12/19/2006/29 History docosahexaenoic acid 200 mg mg PO 05/02/25 06/13/25 Hi story capsule ( DHA) levothyroxine 25 mcg tablet 75 mcg PO DAILY 05/02/25 0 06/13/25 History (Synthroid) famotidine 20 mg tablet (Pepcid) 20 mg PO BID #60 tabs 06/13/25 06/13/25 Rx Last Menstrual Period: 08/19/23 Zika: Zika virus [...] 0 current occupational status: employed 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 OB Visit KESHA Calculator Estimated Delivery Date Method Current WG Current Estimate 11/30/25 Conception 15w 5d Other Estimates 11/28/25 Ultrasound #1 16w 0d Expected Delivery Route/Plan Labor Preferences- CB/BF classes: [...] current plan of care details and appropriate ordersplaced. Relevant counseling for the gestational age provided. Continue routine care and follow up unless otherwise noted in visit notes/problem list details 1 Initial Weight: Not Recorded Date -?-?-?-?-?-?-?-?-?-?-?-?- EGA Weight BP Urine Prot -?-?-?-?--?-?-?-?-?-?-?-?- Glucose FHR FuHt Pres Dilation -?-?-?-?-?-?-?-?-?-?--?-?- Effaced St Visit Note 05/08/25 -?-?-?-?-?-?-?-?-?-?-?-?- 10w 4d 157 lb 4 oz 122/81 -?-?-?-?-?-?-?-?-?-?-?-?- 168 -?-?-?-?-?-?-?-?-?-?-?-?- JV- CRL consiste nt with the IVF implant day (5)is doing NIPT with Dr. keating so will see if he does other labs before ordering them here. 06/13/25 -?-?-?-?-?-?-?-?-?-?-?-?- 15w 5d 166 lb 119/77 Negative -?-?-?-?-?-?-?-?-?-?-?-?- Negative 150 -?-?-?-?-?-?-?-?-?-?-?-?- SM- no vb crampi ng ACOG First Trimester First Trimester: Desire for , Alcohol, Tobacco Cessation, Illicit/Recreational Drug/Substance Use, Intimate Partner Violence, Barriers to care, Unstable Housing, Communication Barriers, Environmental/Work Hazards, Anticipated Course of Care, Toxoplasmosis Precations, Use of Any med ications, Sexual activity, Exercise, Dental Care, Sauna/Hot tub use, Seat Belt use, Childbirth classes/Hospital facilities, Travel, Indications for Ultrasound and Screening for Aneuploidy; Discussed Results POC Urinalysis 2 Dip (Clinic) Office Urine Glucose Negative Last Edit by Sherice Heredia on 06/13/25 15:19 Office Urine Protein Negative Last Edit by Sherice Heredia on 06/13/25 15:19 Coding Level of Care Code OB Routine Diagnoses Supervision of high risk in first trimester O09. 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 E03.9 Hypothyroidism type: acquired Assessment and Plan Assessment and Plan (1) Supervision of high-risk : Status: Acute Qualifiers: Trimester: first trimester Qualified Code(s): O09.91 - Supervision of high risk , unspecified, first trimester Comment: , KESHA 11/30/25, : Michael (2) Conceived by in vitro fertilization: Status: Acute Comment: Transfer date 03/14 - 5day embryo (3) : Status: Acute Qualifiers: Weeks of gestation: 15 weeks Qualified Code(s): Z3A.15 - 15 weeks gestation of Comment: Discussed genetic/carrier testing - scheduled 05/15 w/fertility clinic (4) Rh negative state in antepartum period: Status: Acute Comment: AB- (5) Ramon's disease: Status: Acute Comment: Thyroid labs ordered w/NOB (6) Hypothyroidism: Status: Acute Qualifiers: Hypothyroidism type: acquired Qualified Code(s): E03.9 - Hypothyroidism, unspecified Comment: Synthroid; Thyroid labs ordered w/NOB Orders: Orders POC Urinalysis 2 Dip (Clinic) Today Medications: New famotidine (Pepcid) 20 mg PO BID 60 tabs 6RF 06/13/25 1540 jarred FLORIAN> Date _ Susanna Garcia MD Cosigner Signature: Date (if applicable) CC: ~ [facility]09-09-2025 Progress note Author Susanna Garcia [facility] Note Date/Time June 13, 2025 3:40pm [facility] [address] [place] [address], [address] [place] [address] OFFICE VISIT Date of Service: 06/13/25 MR#: [id number] Acct: [id number] Name: SHERLY CAMEJO Rep #: [id number] : 1995 Provider: Dr. Ayad Garcia MD Age/Sex: 30/F Location: [facility] Status: Signed Intake Vital Signs 04/03/25 08:46 05/08/25 11:16 06/13/25 15:10 06/13/25 15:13 Height 5 ft 2 in 5 ft 2 in 5 ft 2 in 5 ft 2 in Weight: 166 lb BMI 30.3 BP 119/77 Intake Visit Reasons: 16wk ob Tip Cutter Required: No Is patient in pain?: No Allergies amoxicillin Allergy (Intermediate, Verified 06/13/25 15:09) Hives cefaclor (From Ceclor) Allergy (Intermediate, Verified 06/13/25 15:09) Hives sulfamethoxazole (From Bactrim) Allergy (Intermediate, Verified 06/13/25 15:09) Hives trimethoprim (From Bactrim) Allergy (Intermediate, Verified 06/13/25 15:09) Hives Medications ?Medication ?Instructions ?Recorded ?Confirmed ?Type cholecalciferol (vitamin D3) 50 50 mcg PO DAILY 06/13/25 History mcg (2,000 unit) capsule iron 18 mg tablet 18 mg PO DAILY 12/19/2006/29 History docosahexaenoic acid 200 mg mg PO 05/02/25 06/13/25 Hi story capsule ( DHA) levothyroxine 25 mcg tablet 75 mcg PO DAILY 05/02/25 0 06/13/25 History (Synthroid) famotidine 20 mg tablet (Pepcid) 20 mg PO BID #60 tabs 06/13/25 06/13/25 Rx Last Menstrual Period: 08/19/23 Zika: Zika virus [...] 0 current occupational status: employed 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 OB Visit KESHA Calculator Estimated Delivery Date Method Current WG Current Estimate 11/30/25 Conception 15w 5d Other Estimates 11/28/25 Ultrasound #1 16w 0d Expected Delivery Route/Plan Labor Preferences- CB/BF classes: [...] Date -?-?-?-?-?-?-?-?-?-?-?-?- EGA Weight BP Urine Prot -?-?-?-?--?-?-?-?-?-?-?-?- Glucose FHR FuHt Pres Dilation -?-?-?-?-?-?-?-?-?-?--?-?- Effaced St Visit Note 05/08/25 -?-?-?-?-?-?-?-?-?-?-?-?- 10w 4d 157 lb 4 oz 122/81 -?-?-?-?-?-?-?-?-?-?-?-?- 168 -?-?-?-?-?-?-?-?-?-?-?-?- JV- CRL consiste nt with the IVF implant day (5)is doing NIPT with Dr. keating so will see if he does other labs before ordering them here. 06/13/25 -?-?-?-?-?-?-?-?-?-?-?-?- 15w 5d 166 lb 119/77 Negative -?-?-?-?-?-?-?-?-?-?-?-?- Negative 150 -?-?-?-?-?-?-?-?-?-?-?-?- SM- no vb crampi ng ACOG First Trimester First Trimester: Desire for , Alcohol, Tobacco Cessation, Illicit/Recreational Drug/Substance Use, Intimate Partner Violence, Barriers to care, Unstable Housing, Communication Barriers, Environmental/Work Hazards, Anticipated Course of Care, Toxoplasmosis Precations, Use of Any medications, Sexual activity, Exercise, Dental Care, Sauna/Hot tub use, Seat Belt use, Childbirth classes/Hospital facilities, Travel, Indications for Ultrasound and Screening for Aneuploidy; Discussed Results POC Urinalysis 2 Dip (Clinic) Office Urine Glucose Negative Last Edit by Sherice Heredia on 06/13/25 15:19 Office Urine Protein Negative Last Edit by Sherice Heredia on 06/13/25 15:19 Coding Level of Care Code OB Routine Diagnoses Supervision of high risk in first trimester O09.91 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 E03.9 Hypothyroidism type: acquired Assessment and Plan Assessment and Plan (1) Supervision of high-risk : Status: Acute Qualifiers: Trimester: first trimester Qualified Code(s): O09.91 - Supervision of high risk , unspecified, first trimester Comment: , KESHA 11/30/25, : Michael (2) Conceived by in vitro fertilization: Status: Acute Comment: Transfer date 03/14 - 5day embryo (3) : Status: Acute Qualifiers: Weeks of gestation: 15 weeks Qualified Code(s): Z3A.15 - 15 weeks gestation of Comment: Discussed genetic/carrier testing - scheduled 05/15 w/fertility clinic (4) Rh negative state in antepartum period: Status: Acute Comment: AB- (5) Ramon's disease: Status: Acute Comment: Thyroid labs ordered w/NOB (6) Hypothyroidism: Status: Acute Qualifiers: Hypothyroidism type: acquired Qualified Code(s): E03.9 - Hypothyroidism, unspecified Comment: Synthroid; Thyroid labs ordered w/NOB Orders: Orders POC Urinalysis 2 Dip (Clinic) Today Medications: New famotidine (Pepcid) 20 mg PO BID 60 tabs 6RF 06/13/25 1700 <Electronically signed by Susanna stern MD> Date _ Susanna Garcia MD [facility] Signature: Date (if applicable) CC: ~ [facility] Work Phone: 1(242) 292-356708-04-2025 [facility] [address] [place] [address], [address] [place] [id number] OFFICE VISIT Date of Service: 05/08/25 MR#: [id number] Acct: [id number] Name: SHERLY CAMEJO Rep #: [id number] : 1995 Provider: Dr. 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 current occupational exposures/hazards: No pets and animals: Yes pets and animals: dog(s) history of recent travel: Yes ([place]: March 2025) out of state: Yes out [...] physical activity do you participate in: none kp/yazidi: Rastafari seatbelt use: always do you feel safe at home: Yes 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 Relevant counseling for the gestational age provided. [...] Seasonal allergies, Drug/latex allergies/reactions (See allergy list), Television Operator surgery (Endometriosis ), Operations/hospitalizations (see Surg hx) [...] of Care, Toxoplasmosis Precations, Use of Any med ications, Sexual activity, Exercise, Dental Care, Sauna/Hot tub [...] complaints, except as documented, Denies cough and Deniesdyspnea GI Denies abdominal pain and Reports nausea [...] comfortable and no acute distress Orientation: alert [facility] Head: normal to inspection, normocephalic and [...] to inspection and full ROM Supplemental Info [facility] book given and patient encouraged to read [...] practice and discussed care expectations and screenings. [facility] book offered to patient. Discussed routine and specially indicated labs if needed- patient consents to testing. See problem list details for plan information. Optional screening including maternal carrier screenings, neural tube defect screening, genetic screening options including quad screen, nuchal translucency, sequential screening, and NIPT screening offered to patient and patient chose: NIPT with DR. keating next week. 08/04/25 1153 e Velde DO> Date _ Rae Tong Kelsi DO Cosigner Signature: Date (if applicable) CC: ~ [facility]07-29-2025 Chief complaint+Reason for visit Narrative* Chief Complaint Admit Date PNOB Vitals and Education May 02 8:34am *NEW* NOB IV Transfer 03/14, KESHA 12/02 ust 2024 10:33am 16wk ob June 13, 2025 3:05pm spotting/scan per H.G. June 16, 2:34pm 20wk ob *IVF July 11, 2025 3: 34pm Reason for Visit Admit Date Supervision of high-risk May 02, 2025 8:34am Conceived by in vitro fertilization Augu st 2024 10:33am Ramon's disease May 08, 2025 10: 33am Hypothyroidism May 08, 2025 10: 33am May 08, 2025 10: 33am Rh negative state in antepartum period A ugust 2024 10:33am Supervision of high-risk Augus t 2024 10:33am Conceived by in vitro fertilization Jun 3:05pm Ramon's disease June 13, 2025 3:05pm Hypothyroidism June 13, 2025 3:05pm June 13, 2025 3:05pm Rh negative state in antepartum period S eptember 2024 3:05pm Supervision of high-risk Septe mber 2024 3:05pm Conceived by in vitro fertilization Jun 2:34pm Ramon's disease June 16, 2025 2:34pm Hypothyroidism June 16, 2025 2:34pm June 16, 2025 2:34pm Rh negative state in antepartum period S eptember 2024 2:34pm Supervision of high-risk Septe mber 2024 2:34pm Conceived by in vitro fertilization Octo [place] 2024 3:34pm Ramon's disease July 11, 2025 3: 34pm Hypothyroidism July 11, 2025 3: 34pm Placenta previa July 11, 2025 3: 34pm July 11, 2025 3: 34pm Rh negative state in antepartum period O ctober 2024 3:34pm Supervision of high-risk Octob er 2024 3:34pm [facility] Work Phone: 1(930) 250-746007-29-2025 Evaluation note* Diagnosis Onset Date Resolution Status Admit Date Supervision of high-risk acute May 02, 2025 8:34am Conceived by in vitro fertilization acute May 08, 2025 10:33am Ramon's disease acute Augus t 2024 10:33am Hypothyroidism acute May 10:33am acute May 08 10:33am Rh negative state in antepar carson period acute May 08, 2025 10:33am Supervision of high-risk acute May 08, 2025 10:33am Conceived by in vitro fertilization acute June 13, 2 025 3:05pm Ramon's disease acute Septe mb2024 3:05pm Hypothyroidism acute June 13, 2025 3:05pm acute June 13, 2025 3:05pm Rh negative state in antepar carson period acute June 13, 2 025 3:05pm Supervision of high-risk acute June 13, 2 025 3:05pm Conceived by in vitro fertilization acute June 16, 2025 2:34pm Ramon's disease acute mb2024 2:34pm Hypothyroidism acute June 16, 2025 2:34pm acute June 2:34pm Rh negative state in antepar carson period acute June 16, 2025 2:34pm Supervision of high-risk acute June 16, 2025 2:34pm Conceived by in vitro fertilization acute July 11 3:34pm Ramon's disease acute Octob er 2024 3:34pm Hypothyroidism acute July 3:34pm Placenta previa acute July 112024 3:34pm acute July 11, 2 025 3:34pm Rh negative state in antepar carson period acute July 11 3:34pm Supervision of high-risk acute July 11 3:34pm [facility] Work Phone: 1(937) 392-862206-30-2025 Evaluation note* Diagnosis Onset Date Resolution Status Admit Date Rh negative state in antepar carson period acute April 03, 2025 8:22am [facility] Work Phone: 1(205) 709-682706-30-2025 Evaluation note* Diagnosis Onset Date Resolution Status Admit Date Rh negative state in antepar carson period acute April 03, 2025 8:22am Supervision of high-risk acute May 02, 2025 8:34am Conceived by in vitro fertilization acute May 08, 2025 10:33am 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 Hypothyroidism acute May 10:33am acute May 08 10:33am Rh negative state in antepar carson period acute May 08, 2025 10:33am Supervision of high-risk acute May 08, 2025 10:33am [facility] Work Phone: 1(472) 617-529206-30-2025 Evaluation note* Diagnosis Onset Date Resolution Status Admit Date Rh negative state in antepar carson period acute April 03, 2025 8:22am Supervision of high-risk acute May 02, 2025 8:34am Conceived by in vitro fertilization acute May 08, 2025 10:33am Ramon's disease acute Augus t 2024 10:33am Hypothyroidism acute May 10:33am acute May 08 10:33am Rh negative state in antepar carson period acute May 08, 2025 10:33am Supervision of high-risk acute May 08, 2025 10:33am Conceived by in vitro fertilization acute June 13, 2 025 3:05pm Ramon's disease acute mb2024 3:05pm Hypothyroidism acute June 13, 2025 3:05pm acute June 13, 2025 3:05pm Rh negative state in antepar carson period acute June 13, 2 025 3:05pm Supervision of high-risk acute June 13, 2 025 3:05pm [facility] Work Phone: 1([phone]) 698-198506-30-2025 Evaluation note* Diagnosis Onset Date Resolution Status Admit Date Rh negative state in antepar carson period acute April 03, 2025 8:22am Supervision of high-risk acute May 02, 2025 8:34am Conceived by in vitro fertilization acute May 08, 2025 10:33am Ramon's disease acute Augus t 2024 10:33am Hypothyroidism acute May 10:33am acute May 08 10:33am Rh negative state in antepar carson period acute May 08, 2025 10:33am Supervision of high-risk acute May 08, 2025 10:33am Conceived by in vitro fertilization acute June 13, 2 025 3:05pm Ramon's disease acute 2024 3:05pm Hypothyroidism acute June 13, 2025 3:05pm acute June 13, 2025 3:05pm Rh negative state in antepar carson period acute June 13, 2 025 3:05pm Supervision of high-risk acute June 13, 2 025 3:05pm Conceived by in vitro fertilization acute June 16, 2025 2:34pm Ramon's disease acute 2024 2:34pm Hypothyroidism acute June 16, 2025 2:34pm acute June 2:34pm Rh negative state in antepar carson period acute June 16, 2025 2:34pm Supervision of high-risk acute June 16, 2025 2:34pm [facility] Work Phone: 1(231) 485-655906-30-2025 Evaluation note* Diagnosis Onset Date Resolution Status Admit Date Rh negative state in antepar carson period acute April 03, 2025 8:22am Supervision of high-risk acute May 02, 2025 8:34am Conceived by in vitro fertilization acute May 08, 2025 10:33am Ramon's disease acute Augus 2024 10:33am Hypothyroidism acute May 10:33am acute May 08 10:33am Rh negative state in antepar carson period acute May 08, 2025 10:33am Supervision of high-risk acute May 08, 2025 10:33am Conceived by in vitro fertilization acute June 13, 2 025 3:05pm Ramon's disease acute mb2024 3:05pm Hypothyroidism acute June 13, 2025 3:05pm acute June 13, 2025 3:05pm Rh negative state in antepar carson period acute June 13, 2 025 3:05pm Supervision of high-risk acute June 13, 2 025 3:05pm Conceived by in vitro fertilization acute June 16, 2025 2:34pm Ramon's disease acute 2024 2:34pm Hypothyroidism acute June 16, 2025 2:34pm acute June 2:34pm Rh negative state in antepar carson period acute June 16, 2025 2:34pm Supervision of high-risk acute June 16, 2025 2:34pm Conceived by in vitro fertilization acute July 11 3:34pm Ramon's disease acute Oct2024 3:34pm Hypothyroidism acute July 3:34pm Placenta previa acute July 112024 3:34pm acute July 11, 2 025 3:34pm Rh negative state in antepar carson period acute July 11 3:34pm Supervision of high-risk acute July 11 3:34pm [facility] Work Phone: [phone]) [phone] Note* Exam Date Time Procedure Performing Provider Status 09/27/24 12:55 PM NM Parathyroid Study JENNA MEDINA MD; Auth (Verified) [id number] ORIGINAL EXAMINATION: PARATHYROID [id number]/24/2024 12:55 pm TECHNIQUE: 35 mCi of Tc [...] Date: 09/27/2024 2:34:17 PM Ordering Provider: [facility]08-19-2024 Hospital Discharge instructions Patient Education 05/23/2024 [...] cold can help reduce redness and swelling. 5462-6341 [employer] [address] [facility], [place] [address]. All rights reserved. This information is not [...] swelling, or pus coming from any wound 6701-7519 [employer]. [address] [place] [address]. All rights reserved. This information is not intended as a substitute for professional medical care. Always follow yourhealthcare professional's instructions. Follow Up Care 05/23/2024 18:57:40 With:EMILY HEREDIA DO Address: [address] [facility] [place] [address] [place] [address]- When:2-4 days [facility] 08-19-2024 Emergency department Discharge summary Discharge Instructions Thank you for allowing [facility] to assist you with your healthcare needs. [...] HEREDIA DO When:Within 2-4 days Where:[address] [place] [address] [address] [place] [address]- Allergies Bactrim Ceclor amoxicillin Medications Please ask [...] cold can help reduce redness and swelling. 7096-1414 [employer] [address] [place] [address]. All rights reserved. This information is not [...] swelling, or pus coming from any wound 0526-1509 [employer]. [address] [place], [place] [id number]. All rights reserved. This information is not intended as a substitute for professional medical care. Always follow yourhealthcare professional's instructions. Additional Information VACCINATE! IT SAVES LIVES! Members of the community who have not yet received the COVID-19 vaccine and would like to receive it can visit one of [facility] vaccine clinics. There are many vaccine clinic locations within the [facility]. For locations and available times, please visit www.gettheshot.coronavirus.[place].gov/. It is important to note that some COVID mobile vaccine clinics are held outdoors and may be canceled in rainy or stormy conditions. To learn more about pediatric vaccinations (ages 5-11), we invite you to visit the [facility] webpage. https://www.[facility].org/pages/6798-Glapu-Roygrjohmqo-Cybvalvckq-Yujgu-Yby stions.htmlTo learn more about the COVID-19 vaccine, we invite you to visit the CDC website for a list of frequently asked questions. https://www.cdc.gov/coronavirus/2019-ncov/vaccines/faq.html [employer] Patient Portal Access Instructions: Stay connected with your healthcare team and access your personal medical information anytime with the [employer] Patient Portal. If you would like a full copy of your medical records please contact the [facility] Medical Records Department Thursday through Thursday between 8a.m. and 4:30p.m. Please follow the directions below to access the portal: 1.Access the email account you provided upon registration to the [facility].2.Look for an invitation email from [facility].3.Open the email and access the invitation link: Accept Invitation to [employer]4.Fill in the required raza to create your account. Sign into [email or web address] with your username and password that you [...] you will allow to register on the [employer] Patient Portal for access to your information. You can also access the [employer] Patient Portal on the Online [employer]. Simply click on Health Records under [employer] and then click on the [employer] logo. HOW TO SAFELY DISPOSE OF PRESCRIPTION [...] Call your local pharmacy or go to http://bit.908 Devices/3Z6Ej4y to find one close to you.3.Make use of household items: Use cat litter or old coffee grounds to dispose medications if other options arenot available. Mix your drugs with these household products, seal them in an airtight container andthrow it into the garbage. Call [facility]: [phone] to be sure your drugs can be [...] been reviewed and explained to me and I,SHERLY CAMEJOtand my current condition and have read and understand these discharge instructions. I have received a written copy of the plan/instructions. If I have questions, I am aware that I should contact my doctor. Patient/Gi Asst Signature: Date/Time: Relationship to Patient: Witness Name/Signature: Date/Time: [facility]08-19-2024 Note ORIGINAL EXAMINATION: THREE XRAY VIEWS OF [...] Sign Date: 05/23/2024 9:36:20 PM Ordering Provider: [facility]08-19-2024 Evaluation + Plan note Future Scheduled Tests Radiology* US Thyroid 05/23/24 [facility] 12-05-2023 NotePap Smear Specimen AdequacyDecember 2022 11:59pmComment.Satisfactory for evaluation. Endocervical and/or squamous metaplasticcells (endocervical component)are present.[facility] INTER[facility]ACED A#[id number] Tripoint Medical CenterComment on above:Satisfactory for evaluation. Endocervical and/or squamous metaplasticcells (endocervical component)are present.09-08-2023 NotePap Smear Specimen AdequacyDecember 2022 11:59pmComment.Satisfactory for evaluation. Endocervical and/or squamous metaplasticcells (endocervical component)are present.[facility] INTER[facility]ACED A#[id number] Lady of Mercy Hospital - Andersonment on above:Satisfactory for evaluation. Endocervical and/or squamous metaplasticcells (endocervical component)are present.05-14-2021 NoteHNO ID: [id number] Author: Rae Ely Service: ? Author Type: [...] Actions: Appointment scheduled: Reminders sent: Leatha Ely [facility]07-08-2021 NoteHNO ID: [id number] Author: Rae Ely Service: ? Author Type: [...] Actions: Appointment scheduled: Reminders sent: Leatha Ely [facility]07-08-2021 History of Present illness Narrative* Rae [...] Ely Population Health Navigator documented in [facility] encounterUniversity [facility] NotePatient Outreach ([facility]) SHERLY CAMEJO ([id number]) 1995 F Date Time Provider Department 04/11/21 RAE ELY During your visit today, we recorded the following information about you: Rae Ely 04/11/2021 3:06 PM Signed POPULATION HEALTH NAVIGATION OUTREACH OFF-BOARDING Provider Action/FYI Pt identified by name and . Patient last seen by PCP 07-02-18. I called and lm for patient to call back about updating PCP. [employer] message also sent. Outreach Outcome: Unable to reach patient: Left message [employer] message sent Off-Boarding Actions: Appointment scheduled: Reminders [...] [J45.909] Encounter Status:Closed by RAE ELY on [facility]/11/21[facility] Jaren England [facility] September 28, 2023 9:42am Note Date/Time September 28, 2023 9:42am [facility] Medical Records Department [address] [place] [address] Emergency Department Summary 09/28/23 MR#: [id number] Acct: [id number] Name: SHERLY CAMEJO THIAGO Rep #:[id number] : 1995 28 From: Jaren England MD PCP: NOT,DEFINED Status:PRE ER Location: ED HPI History of Present Illness Chief Complaint: Laceration Detail of Chief Complaint: Laceration radial side left index finger Informant: patient Occured/Mechanism Comment: Laceration while cutting potatoes for Jordin dinner Onset/Context/Timing Context: Sudden Onset Timing: Continuous Quality of Pain: Throbbing Location: Radial side left index finger from PIP joint to DIP joint. Current Severity: Mild Maximum Severity: Moderate Worsened by: Nothing Relieved by: Nothing Associated Symptoms Associated Symptoms: Negative for Parasthesia, Weakness or Loss of Funtion Narrative Narrative: Patient is a 28-year-old hwlfi-bbhb-tszdcnui female presents laceration left index finger. Last tetanus unknown. She denies paresthesia, anesthesia or motor weakness. She denies prior injury to the finger. She has no other complaints. Tetanus Immunization: Unknown [facility] Medical History Anemia Asthma Endometriosis Home [...] spouse current occupational status: employed current occupation: [employer] history of recent travel: No sexually active: [...] your Primary Care Provider. Call [facility] ([phone]) or report to the closest Emergency Room. Call 911 if necessary. 09/28/23 1533 <Electronically signed by Jaren England MD> Cosigner Signature (if applicable): CC: DEFINED NOT ~ Signed [facility] Work Phone: Evaluation note* Diagnosis Onset Date Resolution Status Endometriosis determined by laparoscopy acute Hypothyroidism acute Infertility acute [facility] Work Phone: Evaluation note* Diagnosis Onset Date Resolution Status Endometriosis determined by laparoscopy acute Infertility acute [facility] Work Phone: Evaluation noteNo assessment information available [facility] Work Phone: Hospital course Narrative No data available for this section [facility] Hospital Discharge instructions Additional Instructions 1. Keep dressing on for the next 24 to 48 hours 2. Keep finger clean and dry for the next [facility] Work Phone: Hospital Discharge instructions No data available for this section [facility] Progress note No data available for this section [facility] Progress note Author Rae Dolan [facility] Note Date/Time May 08, 2025 11: 53am [facility] Women[facility] [address], [address] [place] [address] OFFICE VISIT Date of Service: 05/08/25 MR#: [id number] Acct: [id number] Name: MATTHEWSHERLY ANN Rep #: [id number] : 1995 Provider: Dr. 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 current occupational exposures/hazards: No pets and animals: Yes pets and animals: dog(s) history of recent travel: Yes ([place]: March 2025) out of state: Yes out [...] physical activity do you participate in: none kp/yazidi: Rastafari seatbelt use: always do you feel safe at home: Yes 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 History 0 Elective abortions Hx Para Spontaneous abortions 0 Hx # Term Pregnancies Ectopic pregnancies 0 Hx # Pregnancies Multiple births # of living children HPI *NEW* NOB IV Transfer 03/14, KESHA 12/02 Details: SHERLY CAMEJO is a 29 year old who presents [...] Seasonal allergies, Drug/latex allergies/reactions (See allergy list), Television Operator surgery (Endometriosis ), Operations/hospitalizations (see Surg hx) [...] comfortable and no acute distress Orientation: alert HENIL Head: normal to inspection, normocephalic and atraumatic [...] to inspection and full ROM Supplemental Info ACOG book given and patient encouraged to read about nutrition, exercise, weight gain, and food avoidance in . Coding Level of Care Code OB Routine Diagnoses Supervision of high risk in first trimester O09. Trimester: first trimester Z34.90 Conceived by in [...] practice and discussed care expectations and screenings. ACOG book offered to patient. Discussed routine and [...] Cosigner Signature: Date (if applicable) CC: ~ [facility] Work Phone: Reason for referral (narrative)No reason for referral information availableBlCommunity [facility] Work Phone: Summary Purpose Family History No Family History Records Found Relationship Condition Age at Onset Recorded Date/T shanelle mother Hypertension Unknown Allergy Unknown Relationship Condition Age at Onset Recorded Date/T shanelle mother Hypertension Unknown Allergy Unknown grandfather Cardiac disease Unknown Malignant neoplasm Unknown grandmother Malignant neoplasm Unknown grandfather Malignant neoplasm of colon Unknown Advance Directives No Advanced Directives Records Found Advance Directive Response Recorded Date/ Time Living Will No September 28, 023 9:18am Power of Melter Clerk No September 28, 2023 9:18am Advance Directive Response Recorded Date/ Time Living Will No September 28, 023 10:18am Power of Melter Clerk No September 28, 2023 10:18am Chief Complaint [...] Rh negative state in antepartum period J [facility] 2024 8:22am Chief Complaint Admit Date Rhogam injection per JV April 03, 2025 8:22am PNOB Vitals and Education May 02 8:34am *NEW* NOB IV Transfer 03/14, KESHA 12/02 Aug t 2024 10:33am Reason for Visit Admit Date Rh negative state in antepartum period J [facility] 2024 8:22am Supervision of high-risk May 02, 2025 8:34am Conceived by in vitro fertilization Augu [facility] 2024 10:33am Ramon's disease May 08, 2025 10: 33am Hypothyroidism May 08, 2025 10: 33am May 08, 2025 10: 33am Rh negative state in antepartum period A ugust 2024 10:33am Supervision of high-risk Augus t 2024 10:33am Chief Complaint Admit Date Rhogam injection per JV April 03, 2025 8:22am PNOB Vitals and Education May 02 8:34am *NEW* NOB IV Transfer 03/14, KESHA 12/02 ust 2024 10:33am 16wk ob June 13, 2025 3:05pm Reason for Visit Admit Date Rh negative state in antepartum period J [facility] 2024 8:22am Supervision of high-risk May 02, 2025 8:34am Conceived by in vitro fertilization 2024 10:33am Ramon's disease May 08, 2025 10: 33am Hypothyroidism May 08, 2025 10: 33am May 08, 2025 10: 33am Rh negative state in antepartum period A ugust 2024 10:33am Supervision of high-risk Augus t 2024 10:33am Conceived by in vitro fertilization Jun 3:05pm Ramon's disease June 13, 2025 3:05pm Hypothyroidism June 13, 2025 3:05pm June 13, 2025 3:05pm Rh negative state in antepartum period S eptember 2024 3:05pm Supervision of high-risk Septe 2024 3:05pm Chief Complaint Admit Date Rhogam injection per JV April 03, 2025 8:22am PNOB Vitals and Education May 02 8:34am *NEW* NOB IV Transfer 03/14, KESHA 12/02 ust 2024 10:33am 16wk ob June 13, 2025 3:05pm spotting/scan per H.G. June 16, 2 025 2:34pm Reason for Visit Admit Date Rh negative state in antepartum period J [facility] 2024 8:22am Supervision of high-risk May 02, 2025 8:34am Conceived by in vitro fertilization 2024 10:33am Ramon's disease May 08, 2025 10: 33am Hypothyroidism May 08, 2025 10: 33am May 08, 2025 10: 33am Rh negative state in antepartum period A ugust 2024 10:33am Supervision of high-risk Augus t 2024 10:33am Conceived by in vitro fertilization Jun 3:05pm Ramon's disease June 13, 2025 3:05pm Hypothyroidism June 13, 2025 3:05pm June 13, 2025 3:05pm Rh negative state in antepartum period S eptember 2024 3:05pm [facility]vision [facility] 2024 3:05pm Conceived by in vitro fertilization Jun 2:34pm Ramon's disease June 16, 2025 2:34pm Hypothyroidism June 16, 2025 2:34pm June 16, 2025 2:34pm Rh negative state in antepartum period S [email or web address] 2:34pm Supervision of high-risk [facility]2024 2:34pm Chief Complaint Admit Date Rhogam injection per JV April 03, 2025 8:22am PNOB Vitals and Education May 02 8:34am *NEW* NOB IV Transfer 03/14, KESHA 12/02 Aug ust 2024 10:33am 16wk ob June 13, 2025 3:05pm spotting/scan per H.G. June 16 2:34pm 20wk ob *IVF July 11, 2025 3: 34pm Reason for Visit Admit Date Rh negative [...] Supervision of high-risk Augus t 2024 10:33am Conceived by in vitro fertilization Jun 3:05pm Ramon's disease June 13, 2025 3:05pm Hypothyroidism June 13, 2025 3:05pm June 13, 2025 3:05pm Rh negative state in antepartum period S [email or web address] 3:05pm Supervision of high-risk [facility] 2024 3:05pm Conceived by in vitro fertilization Sept [email or web address] 2:34pm Ramon's disease June 16, 2025 2:34pm Hypothyroidism June 16, 2025 2:34pm June 16, 2025 2:34pm Rh negative state in antepartum period S eptember 2024 2:34pm Supervision of high-risk Septe [email or web address] 2:34pm Conceived by in vitro fertilization [facility] 2024 3:34pm Ramon's disease July 11, 2025 3: 34pm Hypothyroidism July 11, 2025 3: 34pm Placenta previa July 11, 2025 3: 34pm July 11, 2025 3: 34pm Rh negative state in antepartum period O ctober 2024 3:34pm Supervision of high-risk Octob er 2024 3:34pm Additional Source Comments INFORMATION SOURCE (unrecogn ized section and content) DATE CREATED AUTHOR 08/03/2018 [facility] DATE CREATED AUTHOR AUTHOR'S ORGANIZ ATION 11/24/2018 [facility] DATE CREATED AUTHOR AUTHOR'S ORGANIZ ATION 05/15/2021 [facility] DATE CREATED AUTHOR AUTHOR'S ORGANIZ ATION 05/27/2024 [facility] ([place]) DATE CREATED AUTHOR AUTHOR'S ORGANIZ ATION 10/18/2024 [facility] DATE CREATED AUTHOR AUTHOR'S ORGANIZ ATION 08/02/2025 [facility] DATE CREATED AUTHOR AUTHOR'S ORGANIZ ATION 08/10/2025 [facility] Source Comments (unrecognize d section and content) In the event this informatio n is protected by the Federal Confidentiality of Alcohol and Drug Abuse Patient Records regulations: The Federal rules restrict any use of the information to criminally investigate or prosecute any alcohol or drug abuse patient.[facility] Reason for Visit (unrecogniz ed section and content) Reason Onset Date Comments Population Health Navigation Outreach 04/11/2021 OFFBOARDING- Needs PCP Updated Goals (unrecognized section and content) Type Care Experience Labor Preferences-CB /BF classes: []labor support person: []labor intervention preferences: []pain management options preferred: []cut cord/dad catch: []: []PP control planned: []discussed possible routes of delivery and associated risks: []special requests: [] Care Teams (unrecognized sec tion and content) Team Status: Active Member Role Status Dates EMILY HEREDIA Primary Care Provider Active Team Status: Inactive Member Role Status Dates Sherice Thomas QUALITY ASSURANCE MONITOR CHASSIS, QUALITY ASSURANCE MONITOR CHASSIS-C Attending Provider Active Team Status: Inactive Member Role Status Dates YAN DIAZ Primary Care Provider Active Sherice Thomas QUALITY ASSURANCE MONITOR CHASSIS, QUALITY ASSURANCE MONITOR CHASSIS-C Attending Provider, Referring Provider Active Team Status: [...] Physician Primary Care Provider Active Sherice Thomas QUALITY ASSURANCE MONITOR CHASSIS, QUALITY ASSURANCE MONITOR CHASSIS-C Attending Provider, Referring Provider Active Team Status: Inactive Member Role Status Dates YAN DIAZ Primary Care Provider Active Nabila Vera CNM Attending Provider, Referring Pr apolinar Active Team Status: Active Member Role/Relationship Status Dates YAN DIAZ Primary [...] Inactive Member Role/Relationship Status Dates Sherice Thomas QUALITY ASSURANCE MONITOR CHASSIS, QUALITY ASSURANCE MONITOR CHASSIS-C Attending Provider Active Start: May 02, 2025 End: May 02, 2025 Team Status: Inactive Member Role/Relationship Status Dates Dr. Rae Manjarrez DO Attending Provider Activ e Start: May 08, 2025 End: May 08, 2025 Team Status: Inactive Member Role/Relationship Status Dates Dr. Rae Manjarrez DO Attending Provider Activ e Start: May 08, 2025 End: May 08, 2025 Dr. Rae Manjarrez DO Referring Provider Activ e Start: May 08, 2025 End: May 08, 2025 Team Status: Inactive Member Role/Relationship Status Dates Dr. Susanna Garcia MD Attending Provider Active Start: June 13, 2025 End: June 13, 2025 Team Status: Active Member Role/Relationship Status Dates Dr. Susanna Garcia MD Attending Provider Active Start: June 13, 2025 Dr. Susanna Garcia MD Referring Provider Active Start: June 13, 2025 Team Status: Inactive Member Role/Relationship Status Dates Dr. Susanna Garcia MD Attending Provider Active Start: June 16, 2025 End: June 16, 2025 Team Status: Active Member Role/Relationship Status Dates Dr. Susanna Garcia MD Attending Provider Active Start: June 16, 2025 Dr. Susanna Garcia MD Referring Provider Active Start: June 16, 2025 Team Status: Inactive Member Role/Relationship Status Dates YAN DIAZ Primary care physician Active Sta rt: March 31, 2025 End: March 31, 2025 Dr. Raj Keating DO Attending physician Active Start: March 31, 2025 End: March 31, 2025 Dr. Raj Keating DO Referring Provider Active Start: March 31, 2025 End: March 31, 2025 Team Status: Inactive Member Role/Relationship Status Dates Dr. Rae Manjarrez DO Attending physician Acti ve Start: April 03, 2025 End: April 03, 2025 Team Status: Inactive Member Role/Relationship Status Dates Sherice Thomas NP, QUALITY ASSURANCE MONITOR CHASSIS-C Attending physician Active Start: May 02, 2025 End: May 02, 2025 Team Status: Inactive Member Role/Relationship Status Dates Dr. Rae Manjarrez DO Attending physician Acti ve Start: May 08, 2025 End: May 08, 2025 Team Status: Inactive Member Role/Relationship Status Dates Dr. Rae Manjarrez DO Attending physician Acti ve Start: May 08, 2025 End: May 08, 2025 Dr. Rae Manjarrez DO Referring Provider Activ e Start: May 08, 2025 End: May 08, 2025 Team Status: Inactive Member Role/Relationship Status Dates Dr. Susanna Garcia MD Attending physician Active Start: June 13, 2025 End: June 13, 2025 Team Status: Inactive Member Role/Relationship Status Dates Dr. Susanna Garcia MD Attending physician Active Start: June 13, 2025 End: June 13, 2025 Dr. Susanna Garcia MD Referring Provider Active Start: June 13, 2025 End: June 13, 2025 Team Status: Inactive Member Role/Relationship Status Dates Dr. Susanna Garcia MD Attending physician Active Start: June 16, 2025 End: June 16, 2025 Team Status: Active Member Role/Relationship Status Dates Dr. Susanna Garcia MD Attending physician Active Start: June 16, 2025 Dr. Susanna Garcia MD Referring Provider Active Start: June 16, 2025 Team Status: Inactive Member Role/Relationship Status Dates Dr. Susanna Garcia MD Attending physician Active Start: June 16, 2025 End: June 16, 2025 Dr. Susanna Garcia MD Referring Provider Active Start: June 16, 2025 End: June 16, 2025 Team Status: Inactive Member Role/Relationship Status Dates Sherice Thomas NP QUALITY ASSURANCE MONITOR CHASSIS-C Attending physician Active Start: July 11, 2025 End: July 11, 2025 Team Status: Active Member Role/Relationship Status Dates Dr. Susanna Garcia MD Attending physician Active Start: July 11, 2025 Team Status: Inactive Member Role/Relationship Status Dates Sherice Thomas NP QUALITY ASSURANCE MONITOR CHASSIS-C Attending physician Active Start: May 02, 2025 End: May 02, 2025 Team Status: Inactive Member Role/Relationship Status Dates Dr. Rae Manjarrez DO Attending physician Acti ve Start: May 08, 2025 End: May 08, 2025 Team Status: Inactive Member Role/Relationship Status Dates Dr. Rae Manjarrez DO Attending physician Acti ve Start: May 08, 2025 End: May 08, 2025 Dr. Rae Manjarrez DO Referring Provider Activ e Start: May 08, 2025 End: May 08, 2025 Team Status: Inactive Member Role/Relationship Status Dates Dr. Susanna Garcia MD Attending physician Active Start: June 13, 2025 End: June 13, 2025 Team Status: Inactive Member Role/Relationship Status Dates Dr. Susanna Garcia MD Attending physician Active Start: June 13, 2025 End: June 13, 2025 Dr. Susanna Garcia MD Referring Provider Active Start: June 13, 2025 End: June 13, 2025 Team Status: Inactive Member Role/Relationship Status Dates Dr. Susanna Garcia MD Attending physician Active Start: June 16, 2025 End: June 16, 2025 Team Status: Inactive Member Role/Relationship Status Dates Dr. Susanna Garcia MD Attending physician Active Start: June 16, 2025 End: June 16, 2025 Dr. Susanna Garcia MD Referring Provider Active Start: June 16, 2025 End: June 16, 2025 Team Status: Inactive Member Role/Relationship Status Dates Sherice Thomas NP, QUALITY ASSURANCE MONITOR CHASSIS-C Attending physician Active Start: July 11, 2025 End: July 11, 2025 Team Status: Inactive Member Role/Relationship Status Dates Dr. Susanna Garcia MD Attending physician Active Start: July 11, 2025 End: July 11, 2025 FOR RECORDS PERTAINING TO PATIENTS WHO [...] BE BASED ON THE PRIMARY CLINICAL RECORDS. [facility]. provides no warranty or guarantee of the accuracy or completeness of information in this document.
[2025-09-08 07:13] LABS: Glucose GTT-Gestation. Fasting 86 mg/dL (<105)
[2025-09-08 09:24] LABS: Glucose GTT-Gestational 1 Hr 156 mg/dL (<190)
[2025-09-08 10:24] LABS: Glucose GTT-Gestational 2 Hr 138 mg/dL (<165)
[2025-09-08 11:22] LABS: Glucose GTT-Gestational 3 Hr 98 L (<145)
== END | disposition home or self-care (01) ==
LOC: LAB 06:40
PROVIDERS: PCP Internal Medicine; Referring Provider Obstetrics & Gynecology; Visit Provider Obstetrics & Gynecology
DX: Z13.1 Encounter for screening for diabetes mellitus (principal)
CPT/HCPCS: 36415; 82951; 82952; 86850; 86900; 86901